=== PATIENT | female | born 1945 | race Two or more races ===

== ENCOUNTER 2021-08-18 17:40 | Emergency (ER) | payer MEDICARE, OTHER, MEDICAID, SELFPAY ==
--- NOTE | ~2021-08-18 | XR_ITS ---
EXAMINATION: X-RAY RIGHT HIP X-RAY LEFT HIP X-RAY RIGHT KNEE X-RAY LUMBAR SPINE CLINICAL INFORMATION: Fall, pain. COMPARISON: None TECHNIQUE: AP view of the pelvis with 2 views of each hip were obtained. 3 views of the lumbar spine were obtained. 2 views of the right knee were obtained. FINDINGS: Right hip: There are 3 obliquely oriented partially cannulated screws overlying the femoral neck. No evidence of hardware failure. No acute fractures or malalignment. Moderate to significant degenerative changes in the right hip. Left hip: No evidence of acute fractures or malalignment. Advanced degenerative osteoarthritis with joint space narrowing, subcortical sclerosis and osteophytes. Lumbar spine: No acute compression deformities. Mild grade 1 retrolisthesis of L1 on L2. Moderate to severe lumbar spondylosis with disc space narrowing and facet arthropathy leading to varying degree of neural foraminal encroachment and central canal narrowing. Right knee: No acute fractures or malalignment. Total knee prosthesis without evidence of hardware failure. No joint effusion. Others: Surgical clips in the upper abdomen. Also surgical anastomosis in the region of the left upper abdomen and left lower quadrant. Atherosclerotic disease of the abdominal aorta. Moderate stool burden. XR/XR knee RT 2V IMPRESSION: No evidence of acute fractures or malalignment. Right femoral hardware without evidence of complication. Total right knee arthroplasty without evidence of complication. Moderate to severe degenerative changes in both hips. Multilevel lumbar spondylosis leading to varying degrees of neural foraminal narrowing and central canal stenosis which could be better further assessed with a nonemergent MR lumbar spine if indicated.
--- NOTE | ~2021-08-18 | XR_ITS ---
EXAMINATION: X-RAY RIGHT HIP X-RAY LEFT HIP X-RAY RIGHT KNEE X-RAY LUMBAR SPINE CLINICAL INFORMATION: Fall, pain. COMPARISON: None TECHNIQUE: AP view of the pelvis with 2 views of each hip were obtained. 3 views of the lumbar spine were obtained. 2 views of the right knee were obtained. FINDINGS: Right hip: There are 3 obliquely oriented partially cannulated screws overlying the femoral neck. No evidence of hardware failure. No acute fractures or malalignment. Moderate to significant degenerative changes in the right hip. Left hip: No evidence of acute fractures or malalignment. Advanced degenerative osteoarthritis with joint space narrowing, subcortical sclerosis and osteophytes. Lumbar spine: No acute compression deformities. Mild grade 1 retrolisthesis of L1 on L2. Moderate to severe lumbar spondylosis with disc space narrowing and facet arthropathy leading to varying degree of neural foraminal encroachment and central canal narrowing. Right knee: No acute fractures or malalignment. Total knee prosthesis without evidence of hardware failure. No joint effusion. Others: Surgical clips in the upper abdomen. Also surgical anastomosis in the region of the left upper abdomen and left lower quadrant. Atherosclerotic disease of the abdominal aorta. Moderate stool burden. XR/XR lumbar spine 2-3V IMPRESSION: No evidence of acute fractures or malalignment. Right femoral hardware without evidence of complication. Total right knee arthroplasty without evidence of complication. Moderate to severe degenerative changes in both hips. Multilevel lumbar spondylosis leading to varying degrees of neural foraminal narrowing and central canal stenosis which could be better further assessed with a nonemergent MR lumbar spine if indicated.
--- NOTE | ~2021-08-18 | XR_ITS ---
EXAMINATION: X-RAY RIGHT HIP X-RAY LEFT HIP X-RAY RIGHT KNEE X-RAY LUMBAR SPINE CLINICAL INFORMATION: Fall, pain. COMPARISON: None TECHNIQUE: AP view of the pelvis with 2 views of each hip were obtained. 3 views of the lumbar spine were obtained. 2 views of the right knee were obtained. FINDINGS: Right hip: There are 3 obliquely oriented partially cannulated screws overlying the femoral neck. No evidence of hardware failure. No acute fractures or malalignment. Moderate to significant degenerative changes in the right hip. Left hip: No evidence of acute fractures or malalignment. Advanced degenerative osteoarthritis with joint space narrowing, subcortical sclerosis and osteophytes. Lumbar spine: No acute compression deformities. Mild grade 1 retrolisthesis of L1 on L2. Moderate to severe lumbar spondylosis with disc space narrowing and facet arthropathy leading to varying degree of neural foraminal encroachment and central canal narrowing. Right knee: No acute fractures or malalignment. Total knee prosthesis without evidence of hardware failure. No joint effusion. Others: Surgical clips in the upper abdomen. Also surgical anastomosis in the region of the left upper abdomen and left lower quadrant. Atherosclerotic disease of the abdominal aorta. Moderate stool burden. XR/XR hip RT min 2V IMPRESSION: No evidence of acute fractures or malalignment. Right femoral hardware without evidence of complication. Total right knee arthroplasty without evidence of complication. Moderate to severe degenerative changes in both hips. Multilevel lumbar spondylosis leading to varying degrees of neural foraminal narrowing and central canal stenosis which could be better further assessed with a nonemergent MR lumbar spine if indicated.
--- NOTE | ~2021-08-18 | XR_ITS ---
EXAMINATION: X-RAY RIGHT HIP X-RAY LEFT HIP X-RAY RIGHT KNEE X-RAY LUMBAR SPINE CLINICAL INFORMATION: Fall, pain. COMPARISON: None TECHNIQUE: AP view of the pelvis with 2 views of each hip were obtained. 3 views of the lumbar spine were obtained. 2 views of the right knee were obtained. FINDINGS: Right hip: There are 3 obliquely oriented partially cannulated screws overlying the femoral neck. No evidence of hardware failure. No acute fractures or malalignment. Moderate to significant degenerative changes in the right hip. Left hip: No evidence of acute fractures or malalignment. Advanced degenerative osteoarthritis with joint space narrowing, subcortical sclerosis and osteophytes. Lumbar spine: No acute compression deformities. Mild grade 1 retrolisthesis of L1 on L2. Moderate to severe lumbar spondylosis with disc space narrowing and facet arthropathy leading to varying degree of neural foraminal encroachment and central canal narrowing. Right knee: No acute fractures or malalignment. Total knee prosthesis without evidence of hardware failure. No joint effusion. Others: Surgical clips in the upper abdomen. Also surgical anastomosis in the region of the left upper abdomen and left lower quadrant. Atherosclerotic disease of the abdominal aorta. Moderate stool burden. XR/XR hip LT min 2V IMPRESSION: No evidence of acute fractures or malalignment. Right femoral hardware without evidence of complication. Total right knee arthroplasty without evidence of complication. Moderate to severe degenerative changes in both hips. Multilevel lumbar spondylosis leading to varying degrees of neural foraminal narrowing and central canal stenosis which could be better further assessed with a nonemergent MR lumbar spine if indicated.
[2021-08-18 17:43] VITALS: BP 159/61; PULSE 94; RESP 18; TEMP 36.8; O2SAT 98; BMI 25.4
--- NOTE | 2021-08-18 17:55 | ED.FALL ---
HPI - Fall General Chief Complaint: Fall Stated Complaint: fall - hip pain Time Seen by Provider: 08/18/21 18:19 Source: patient and family Mode of arrival: wheelchair Limitations: no limitations History of Present Illness HPI Narrative: 76-year-old female presents with right-sided hip pain and knee pain after fall on . States that she lost her balance, she did hit her head but did not lose consciousness. Patient is reporting hip and knee pain and lumbar spine pain. Does not report any symptoms indicating cauda equina, loss of strength, or any other concerning symptoms. MD complaint: fall Onset (ago): day(s) Fall from: standing Fall witnessed: yes, by family Place fall occurred: home Loss of consciousness: none Prolonged down time: no Symptoms prior to fall: none Context: tripped/slipped Location of injury: pelvis Severity: moderate Severity scale (1-10): 7 Quality: aching Associated symptoms (after fall): denies Related Data Allergies Allergy/AdvReac Type Severity Reaction Status Date / Time No Known Allergies Allergy Verified 08/18/21 17:44 Review of Systems Review of Systems: Constitutional: No Fever, No Chills ENT/Mouth: No Ear Pain, No Hoarseness, No sore throat Eyes: No Eye Pain, No Swelling, No Redness, No Foreign Body Cardiovascular: No Chest Pain, No SOB Respiratory: No Cough, No Dyspnea Gastrointestinal: No Nausea, No Vomiting, No Diarrhea, No abdominal Pain Genitourinary: No Dysuria, No Hematuria Musculoskeletal: positive right hip and knee pain, positive lumbar back pain, No Myalgias, No Joint Swelling Skin: No Skin lacerations, No rash Neuro: No Weakness, No Numbness, No Paresthesias, No Loss of Consciousness, No Dizziness, No Headache Psych: No Anxiety/Panic, No Depression Heme/Lymph: no easy bruising, no Lymphadenopathy Endocrine: No Polyuria, No Polydipsia Yes all other systems are reviewed and are negative PMFSH Past Medical History Attestation statement: The following information was validated with the patient. Source: old records reviewed Medical History Arthritis Depression Social History Social History Advance Directives: No Advance Directives Information Provided: No Physical Exam Vital Signs: Vital Signs: Last Vital Signs Temp 97.6 F 08/18/21 19:30 Pulse 81 08/18/21 19:30 Resp 18 08/18/21 19:30 BP 142/56 H 08/18/21 19:30 Pulse Ox 94 08/18/21 19:30 Body Mass Index 25.4 Appearance: Alert. Oriented X3. No acute distress. Eyes: Pupils equal, round and reactive to light. EOMI. No nystagmus. HENT: Pharynx normal. Small hematoma to the right occiput. Neck: Normal inspection. Neck supple. No vertebral tenderness or step-offs noted. Full range of motion. CVS: Normal heart rate and rhythm. Apical pulse equal to pulseless to extremities. Respiratory: No respiratory distress. Breath sounds normal. No chest wall tenderness to palpation. Abdomen: Soft and nontender. Skin: Skin warm and dry. Normal skin color. Normal skin turgor. Extremities: No lower extremity edema. Right-sided hip tenderness to palpation. Strength 5/5 to all extremities. Neuro: No motor deficit. No sensory deficit. Cranial nerves 2-12 intact. Course Course Course Narrative: 76-year-old female presents with right-sided hip pain and knee pain after fall on . Does not report any prodromal events. Neurovascularly intact. Does have a hematoma approximately 1 cm in diameter to the right occiput. No vertebral tenderness or step-offs noted. Has full range of motion and gait is well balanced well coordinated. Negative Romberg. PCARN score 0. Will order x-rays of hips, knee and lumbar spine. Mass Pat verified for the [facility] [place], [place], [place] and [place]. 7:48 p.m. discussion with patient and patient's family regarding x-rays, need for non emergent MRI spine discussed. Patient will follow-up with her physician in [place]. Patient and patient's family verbalized understanding of and agrees to plan of care discharge home. MDM - Fall Differential Diagnosis Differential diagnosis: Likely dislocation, fracture and compression fracture Medical Records Attestation: I reviewed the patient's medical records. Imaging Data Bilateral hip, right knee, and lumbar spine x-ray: Attestation: I personally reviewed and interpreted this imaging study as follows: Radiologist's impression: EXAMINATION: X-RAY RIGHT HIP X-RAY LEFT HIP X-RAY RIGHT KNEE X-RAY LUMBAR SPINE CLINICAL INFORMATION: Fall, pain.? COMPARISON: None? TECHNIQUE: AP view of the pelvis with 2 views of each hip were obtained. 3 views of the lumbar spine were obtained. 2 views of the right knee were obtained.? FINDINGS: Right hip: There are 3 obliquely oriented partially cannulated screws overlying the femoral neck. No evidence of hardware failure. No acute fractures or malalignment. Moderate to significant degenerative changes in the right hip. Left hip: No evidence of acute fractures or malalignment. Advanced degenerative osteoarthritis with joint space narrowing, subcortical sclerosis and osteophytes. Lumbar spine: No acute compression deformities. Mild grade 1 retrolisthesis of L1 on L2. Moderate to severe lumbar spondylosis with disc space narrowing and facet arthropathy leading to varying degree of neural foraminal encroachment and central canal narrowing. Right knee: No acute fractures or malalignment. Total knee prosthesis without evidence of hardware failure. No joint effusion. Others: Surgical clips in the upper abdomen. Also surgical anastomosis in the region of the left upper abdomen and left lower quadrant. Atherosclerotic disease of the abdominal aorta. Moderate stool burden. XR/XR hip RT min 2V IMPRESSION: No evidence of acute fractures or malalignment. ? Right femoral hardware without evidence of complication. ? Total right knee arthroplasty without evidence of complication. ? Moderate to severe degenerative changes in both hips. ? Multilevel lumbar spondylosis leading to varying degrees of neural foraminal narrowing and central canal stenosis which could be better further assessed with a nonemergent MR lumbar spine if indicated.? 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 X-rays of hip, and lumbar spine indicate disc degeneration. Please follow-up with Neurology for nonemergent MRI. Continue to take Tylenol as needed for pain management. Thank you for choosing this emergency department for evaluation. Please follow-up with primary care physician as needed. Return to the emergency department for any new, concerning, or worsening symptoms.
[2021-08-18 19:30] VITALS: BP 142/56; PULSE 81; RESP 18; TEMP 36.4; O2SAT 94
[2021-08-18] MEDS: Ketorolac Tromethamine 15 MG/ML VIAL 30 MG IM (20:02)
== END 2021-08-18 20:15 | disposition home or self-care (01) ==
PROVIDERS: Emergency Provider Internal Medicine
DX: M16.0 Bilateral primary osteoarthritis of hip (principal); M47.816 Spondylosis without myelopathy or radiculopathy, lumbar region; Z91.81 History of falling
CPT/HCPCS: 72100; 73502; 73560; 96372; 99284; J1885

== ENCOUNTER 2024-09-03 16:12 | Outpatient (AMB) | payer MEDICARE, MEDICAID, SELFPAY ==
[2024-09-03 16:13] VITALS: BP 138/80; PULSE 73; O2SAT 98; BMI 28.6
--- NOTE | 2024-09-03 16:13 | MHC.PC.OV ---
Vital Signs 09/03/24 16:13 Height 5 ft 1 in Weight 151 lb 4 oz BMI 28.6 BP 138/80 Blood Pressure Location Lt brachial Position Sitting Pulse 73 Pulse Source Pulse Oximeter Pulse Oximetry (%) 98 Oxygen Delivery Method Room Air Intake Visit Reasons: [employer]- PE request Nylon Operator Required: No Accompanied by: Self / Same As Patient Allergies No Known Allergies Allergy (Verified 09/03/24 19:05) Medication List - Last Reconciled 09/03/24 by Jacob Vale MD albuterol sulfate 90 mcg/actuation 2 puffs inhalation Q4-6H PRN atorvastatin 80 mg PO DAILY bupropion HCl XL 150 mg PO QAM buspirone 20 mg PO BID cariprazine (Vraylar) 3 mg PO DAILY doxepin 10 mg PO BEDTIME famotidine 20 mg PO BID PRN fluticasone propionate 50 mcg/actuation 1 spray intranasal DAILY gabapentin 300 mg PO TID 30 days ibandronate 150 mg PO .monthly lamotrigine 200 mg PO DAILY lamotrigine 50 mg (2 x 25 mg) PO DAILY memantine 5 mg PO BID nifedipine ER 60 mg PO DAILY pantoprazole 40 mg PO DAILY venlafaxine ER 225 mg PO QAM Tobacco use date assessed: 09/03/24 Fall risk assessment: 2 + Falls in past year Last assessed Fall Risk: 09/03/24 Dental Screening Dental Screen Date: 09/03/24 Did you have a dental visit in the last 12 months?: No Did you have a dental problem in the last 6 months where you did not have access to dental care?: No Was dental information given to patient?: No HPI [employer]- PE request HPI Details Patient comes in today for her annual physical examination and to establish care - is a new patient to the practice She is in today with her daughter and her son, who she is living with, is also participating in today's visit over the phone Patient recently moved here from [place] [address], [place], where she was living (on her own) for about 30 years Her daughter states that they have been trying to convince her to move here for a few years now as her children are all here in [facility] and patient has been slowly getting weaker over the years and has been supposedly falling a lot lately They have brought in with them today all of her medications, which we have reviewed and updated in her medication list They also brought in a copy of a head and neck CTA done on the patient back in 2021 supposedly for memory loss and multiple falls but states that they otherwise have no other records to provide so most of her history is provided by the patient herself but are limited to what she can actually recall Patient states that she feels okay but per her daughter and son, she has supposedly passed out a few times over the past few months without any identifiable reason As mentioned, she has been also falling a lot lately and per her daughter, has been getting progressively more forgetful Patient denies any headaches or dizziness although patient has been experiencing increased pain over the right side of her neck at the base of her skull for several weeks now She reports (+) history of arthritis in her neck She denies any chest pains or increased shortness of breath No nausea/vomiting, no abdominal pain No change in bowel habits noted She denies any acute urinary symptoms Patient adds that she has been experiencing increased pain in her left hip and left knee lately Also reports (+) history of chronic low back pain in the past and states that her lower back has been bothering her a lot more than usual lately She also relates (+) history of anxiety and depression and is currently on multiple medications for depression and her daughter would like for her to get a referral to Psychiatry for her mood disorder and also to Neurology to evaluate her declining memory and cognition At patient's current age, she no longer needs to keep up with routine cancer screenings, including her colonoscopy, annual mammography and annual gynecology exam and Pap smear unless she wishes to do so [facility] Medical History (Updated 09/04/24 @ 06:08 by Jacob Vale MD) Overweight (BMI 25.0-29.9) Bipolar 1 disorder GERD without esophagitis Allergic rhinitis Dementia Anxiety Osteoporosis Pure hypercholesterolemia Essential hypertension Depression Arthritis Surgical History (Updated 09/03/24 @ 16:52 by Jacob Vale MD) History of cataract extraction History of Mabel-en-Y gastric bypass History of arthroplasty of right shoulder History of total hip arthroplasty History of total knee arthroplasty Hx of arthroscopic knee surgery Family History Other FH: mental illness Substance abuse Social History Housing: Apartment Patient Tobacco Use Status: Former Tobacco user e-Cigarette/Vaping Use: Never Used service: No Current occupational status: unemployed Current occupational exposures/hazards: No Cognitive needs: No Hearing needs: No Vision needs: No Questionnaire PHQ-9 Over the last 2 weeks, how often have you been bothered by any of the following problems? 1. Little interest or pleasure in doing things: more than half the days 2. Feeling down, depressed, or hopeless: several days 3. Trouble falling or staying asleep, or sleeping too much: more than half the days 4. Feeling tired or having little energy: nearly every day 5. Poor appetite or overeating: more than half the days 6. Feeling bad about yourself - or that you are a failure or have let yourself or your family down: not at all 7. Trouble concentrating on things, such as reading the newspaper or watching television: nearly every day 8. Moving or speaking so slowly that other people could have noticed. Or the opposite - being so fidgety or restless that you have been moving around a lot more than usual: not at all 9. Thoughts that you would be better off or of hurting yourself in some way: not at all Total score: 13 Depression Screening Interpretation: Positive Depression Screening Follow-up: Existing condition and In treatment Depression Screening Done: Yes 39601 - PHQ-9 Billing: Yes Source: Developed by Drs. Donovan Fierro, Deepa Bustamante, Nathaniel Lyons and colleagues, with an educational marquez from [employer]. Thrive Questionnaire Date Thrive assessed: 09/03/24 I am a: Patient What is your living situation today?: I have a place to live, but I am worried about losing it in the future Within the past 12 months, did the food you bought not last and you didn't have the money to get more?: Never true Within the past 12 months, did you worry whether your food would run out before you got money to buy more?: Never true Do you have trouble paying for medicines?: No Do you have trouble getting transportation to medical appointments?: Yes Do you have trouble paying your heating and electricity bill?: No Do you have trouble taking care of your child, family member or friend?: I choose not to answer this question Do you have trouble with day-to-day activities such as bathing, preparing meals, shopping, managing finances, etc.?: Yes Are you currently unemployed and looking for a job?: No Are you interested in more education?: No Please select the resources that you would like help with: Care for elder or disabled and Daily support Currently or been in a relationship where the following occur: No concerns reported THRIVE Score: 2 AUDIT C Alcohol Use Questionnaire (AUDIT-C) 1. How often do you have a drink containing alcohol?: Never 3. How often do you have six or more drinks on one occasion?: Never Total Score: 0 Score Reviewed/Action Taken: Yes WYATT-7 AMB Questionnaire WYATT-7 Date WYATT - 7 assessed: 09/03/24 Feeling nervous, anxious, or on edge: 2 = More than half the days Not being able to stop or control worryin = Nearly every day Worrying too much about different things: 3 = Nearly every day Trouble relaxin = Several days Being so restless that it is hard to sit still: 0 = Not at all Becoming easily annoyed or irritable: 0 = Not at all Feeling afraid as if something awful might happen: 0 = Not at all Total WYATT-7 score (0-4 normal; 5-9 mild; 10-14 moderate; 15-21 severe): 9 Source: Developed by Drs. Donovan Fierro, Deepa Bustamante, Nathaniel Lyons and colleagues, with an educational marquez from [employer]. Review of Systems Const Denies chills, Denies fatigue, Denies fever(s), Reports frequent falls, Denies headache(s) and Denies malaise Eyes Denies blurry vision, Denies change in vision, Denies irritation and Denies itchy eyes ENT Denies dysphagia, Denies dizziness, Denies otalgia, Denies headache(s), Denies nasal congestion, Reports neck pain (on the R side at the base of the skull), Denies odynophagia, Denies sinus pain and Denies sore throat Card Denies chest pain, Reports chest pain at rest (on and off over the past few weeks - see HPI), Reports syncope, Denies rapid heart rate, Denies irregular heart rhythm, Denies palpitations and Denies dyspnea Resp Denies chest congestion, Denies cough, Denies dyspnea and Denies wheezing GI Denies abdominal pain, Denies bloating, Denies constipation, Denies dysphagia, Denies heartburn, Denies diarrhea, Denies nausea, Denies odynophagia and Denies vomiting Denies hematuria, Denies urinary frequency, Denies dysuria, Denies urinary incontinence and Denies urinary urgency Musc Reports back pain (over the lower back), Reports arthralgias (over the left hip and left knee - increasing lately), Denies joint swelling, Denies muscle weakness and Reports neck pain (on the R side at the base of the skull) Skin/Breast Denies breast pain, Denies breast mass, Denies change in pigmentation, Denies lesions, Denies rash and Denies unusual bruising Neuro Denies dizziness, Reports syncope, Reports frequent falls, Denies headache(s), Reports memory loss (slowly progressing over the past few years) and Denies paresthesias Psych Reports anxiety, Reports depression and Reports memory loss (slowly progressing over the past few years) Endo Denies fatigue and Denies palpitations Teja/Lymph Denies easy bruising Aller/Immun Denies itchy eyes and Denies wheezing Physical exam (Primary Care) Vital Signs: Last Vital Signs Pulse 73 09/03/24 16:13 BP 138/80 09/03/24 16:13 Pulse Ox 98 09/03/24 16:13 Oxygen Delivery Method Room Air 09/03/24 16:13 BMI result Body Mass Index 28.6 Tobacco/Smoking Status: Tobacco use Status Tobacco use date assessed 09/03/24 09/03/24 16:17 Patient Tobacco Use Status Former Tobacco user 09/03/24 16:22 e-Cigarette/Vaping Use Never Used 09/03/24 16:17 PHQ-9: PHQ-9 Score PHQ-9: Total score 13 09/03/24 23:28 Depression Screening Interpretation: Positive Depression Screening Follow-up: Existing condition and In treatment Thrive Assessment: Date of Thrive Assessment Date Thrive assessed 09/03/24 09/03/24 16:17 Currently or been in a relationship where the following occur: No concerns reported Const General: no acute distress, alert and awake Orientation/consciousness: patient oriented x3 HENMT Head: Yes normocephalic and Yes atraumatic Ears: external ears normal, TM's normal bilaterally and EAC's normal General nose exam: No nasal discharge present Face and sinus: Yes normal facial exam and Yes sinuses nontender Teeth and gingiva: dentition normal Throat: Yes posterior oropharynx normal and Yes tonsils normal (no TP congestion) Eyes Eyelids: Yes eyelids normal Conjunctivae: conjunctivae normal Pupils: Equal, round and reactive pupils present EOM: EOMs intact bilaterally Neck Neck: Yes supple and No lymphadenopathy Thyroid: Thyroid normal Resp Auscultation: clear to auscultation bilaterally, no rales and no wheezes Cardio Rate: regular rate Rhythm: regular rhythm Heart sounds: no murmurs GI Palpation (GI): Soft to palpation, nontender and No hepatosplenomegaly present Auscultation: normal bowel sounds General: Yes no CVA tenderness Back/Spine/Pelvis Back: no CVA tenderness Cervical Spine: Cervical spine tenderness Thoracic/Lumbar Spine: lumbar spinal tenderness Skin Lesions: no lesions Rashes: no rashes Neuro General: patient oriented x3, moves all extremities, no focal motor deficits and CN's II-XI intact bilaterally Cranial nerves: Yes Equal, round and reactive pupils present Cognition (Neuro): normal cognition Gait exam (Neuro): Normal gait present Extrem General: Yes no clubbing, cyanosis or edema Left lower extremity: hip/thigh Details: tenderness Location: of the hip and knee Details: tenderness Location: of the popliteal fossa; no swelling Coding Level of Care Code New Pt Prev Care >65yr (65324) Diagnoses Annual physical exam Z00.00 Essential hypertension I10 Pure hypercholesterolemia E78.00 Recurrent syncope R55 Dementia without behavioral disturbance, psychotic disturbance, mood disturbance, or anxiety, unspecified dementia severity, unspecified dementia type F03.90 Dementia type: unspecified type Dementia severity: unspecified severity Dementia behavioral or psychological symptom: without behavioral, psychotic, or mood disturbance or anxiety Osteoporosis without current pathological fracture, unspecified osteoporosis type M81.0 Osteoporosis type: unspecified Presence of current pathological fracture: without current pathological fracture GERD without esophagitis K21.9 Allergic rhinitis, unspecified seasonality, unspecified trigger J30.9 Allergic rhinitis trigger: unspecified Allergic rhinitis seasonality: unspecified Neck pain M54.2 Midline low back pain without sciatica, unspecified chronicity M54.50 Chronicity: unspecified Back pain laterality: midline Sciatica presence: without sciatica Left hip pain M25.552 Left knee pain, unspecified chronicity M25.562 Chronicity: unspecified Anxiety F41.9 Bipolar 1 disorder F31.9 Overweight (BMI 25.0-29.9) E66.3 Additional Codes PHQ-9 - 21373 - PHQ-9 Billing: Yes ([id number]) Assessment & Plan Assessment & Plan (1) Annual physical exam: Code(s): Z00.00 - Encounter for general adult medical examination without abnormal findings Category: Medical Plan: Check labs At her current age, unless she wishes to do so, patient no longer has to keep up with her cancer screenings, including colonoscopy, mammography and annual pap smear and gynecology exam - patient declined to continue (2) Essential hypertension: Code(s): I10 - Essential (primary) hypertension Category: Medical Plan: Discussed low sodium diet - goal is systolic BP of at least 130 to 140 mm or less Continue Nifedipine ER 60 mg QD (3) Pure hypercholesterolemia: Code(s): E78.00 - Pure hypercholesterolemia, unspecified Category: Medical Plan: Discussed low cholesterol diet Continue Atorvastatin 80 mg QD Will have patient get her fasting lipids checked EN (4) Recurrent syncope: Code(s): R55 - Syncope and collapse Category: Medical Plan: Unknown etiology Patient's children states that she's had recurrent syncopal episodes over the past few weeks now, with her most recent episode occurring just a couple of weeks ago Will send patient for some labs for further evaluation first and if her labs are unrevealing, will consider sending her for a head CT for further evaluation Will send her as well for an echocardiogram for further evaluation Will also refer her to cardiology for further evaluation - may need Holter monitoring or cardiac event monitor as well (5) Dementia: Code(s): F03.90 - Unspecified dementia, unspecified severity, without behavioral disturbance, psychotic disturbance, mood disturbance, and anxiety Category: Medical Qualifiers: Dementia type: unspecified type Dementia severity: unspecified severity Dementia behavioral or psychological symptom: without behavioral, psychotic, or mood disturbance or anxiety Qualified Code(s): F03.90 - Unspecified dementia, unspecified severity, without behavioral disturbance, psychotic disturbance, mood disturbance, and anxiety Plan: Continue Memantine 5 mg BID Per request, will refer patient to neurology for further evaluation and management (6) Osteoporosis: Code(s): M81.0 - Age-related osteoporosis without current pathological fracture Category: Medical Qualifiers: Osteoporosis type: unspecified Presence of current pathological fracture: without current pathological fracture Qualified Code(s): M81.0 - Age-related osteoporosis without current pathological fracture Plan: Patient states that she last had a bone density scan done in [place] sometime in the past 1 to 2 years although she does not know how her scan came out She has been on Ibandronate 150 mg once a month supposedly for over a year now but she is not exactly sure as to when she started on this Will send her for repeat BMD for follow up (7) GERD without esophagitis: Code(s): K21.9 - Gastro-esophageal reflux disease without esophagitis Category: Medical Plan: Dietary restrictions discussed Continue Pantoprazole 40 mg QD and Famotidine 20 mg BID PRN (8) Allergic rhinitis: Code(s): J30.9 - Allergic rhinitis, unspecified Category: Medical Qualifiers: Allergic rhinitis trigger: unspecified Allergic rhinitis seasonality: unspecified Qualified Code(s): J30.9 - Allergic rhinitis, unspecified Plan: Continue Fluticasone 50 mcg nasal spray QD PRN (9) Neck pain: Code(s): M54.2 - Cervicalgia Category: Medical Plan: Have advised patient that her recent right-sided neck pain may be referred pain from her cervical spine Will send her for cervical spine x-rays for further evaluation (10) Low back pain: Code(s): M54.50 - Low back pain, unspecified Category: Medical Qualifiers: Chronicity: unspecified Back pain laterality: midline Sciatica presence: without sciatica Qualified Code(s): M54.50 - Low back pain, unspecified Plan: Discussed activity and weight-lifting restrictions Will send patient for x-rays of the lumbar spine for further evaluation Continue Gabapentin 300 mg TID (11) Left hip pain: Code(s): M25.552 - Pain in left hip Category: Medical Plan: Patient states that she's had total arthroplasty of both hips done in [place] a few years ago and is concerned that her recent hip pain may be related to her arthroplasty Will send her for x-rays of the left hip for further evaluation She is advised that depending on how her x-rays come out, we may need to consider referring her to orhtopedics here locally for further recommendations (12) Left knee pain: Code(s): M25.562 - Pain in left knee Category: Medical Qualifiers: Chronicity: unspecified Qualified Code(s): M25.562 - Pain in left knee Plan: Patient also reports that she's had total arthroplasty of both knees done in [place] a few years ago and she is concerned about her recent knee pain Will send her for left knee x-rays for further evaluation (13) Anxiety: Code(s): F41.9 - Anxiety disorder, unspecified Category: Medical Plan: Continue Doxepin 10 mg Q HS, Buspirone 20 mg BID and Bupropion XL 150 mg Q AM (14) Bipolar 1 disorder: Code(s): F31.9 - Bipolar disorder, unspecified Category: Medical Plan: Continue Vanlafaxine ER 225 mg Q AM, Lamotrigine 250 mg (200 mg + 25 mg x 2) QD, Vraylar 3 mg QD and Bupropion XL 150 mg Q AM Per request, will refer her to psychiatry (15) Overweight (BMI 25.0-29.9): Code(s): E66.3 - Overweight Category: Medical Plan: Per patient, she's had a Mabel-en-Y gastric bypass surgery years ago and has lost about 120 pounds or more since her surgery Continue Pantoprazole 40 mg QD and she is reminded to completely avoid taking any NSAIDs to prevent the development of ulcers, especially marginal ulcers Plan Follow up in 3 months Orders: Orders XR DEXA axial skeleton 09/03/24 M81.0 - Age-related osteoporosis without current pathological fracture, Z78.0 - Asymptomatic menopausal state XR lumbar spine 2-3V 09/03/24 M54.50 - Low back pain, unspecified XR hip LT min 2V 09/03/24 M25.552 - Pain in left hip XR knee LT 4V 09/03/24 M25.562 - Pain in left knee Complete Blood Count Auto Diff 09/03/24 D64.9 - Anemia, unspecified, Z00.00 - Encounter for general adult medical examination without abnormal findings UA CC w/rflx Micro + Cult 09/03/24 R30.0 - Dysuria, Z00.00 - Encounter for general adult medical examination without abnormal findings C Reactive Protein 09/03/24 Z00.00 - Encounter for general adult medical examination without abnormal findings B Type Natriuretic Peptide 09/03/24 I50.9 - Heart failure, unspecified, Z00.00 - Encounter for general adult medical examination without abnormal findings Erythrocyte Sedimentation Rate 09/03/24 M79.7 - Fibromyalgia, Z00.00 - Encounter for general adult medical examination without abnormal findings XR cervical spine 3V 09/03/24 M54.2 - Cervicalgia CA echo transthoracic complete 09/03/24 R06.09 - Other forms of dyspnea, R55 - Syncope and collapse Comprehensive [place]. Panel Fast 09/03/24 E78.00 - Pure hypercholesterolemia, unspecified, Z00.00 - Encounter for general adult medical examination without abnormal findings Lipid Panel 09/03/24 E78.00 - Pure hypercholesterolemia, unspecified, Z00.00 - Encounter for general adult medical examination without abnormal findings TSH reflex Free T4 09/03/24 E78.00 - Pure hypercholesterolemia, unspecified, Z00.00 - Encounter for general adult medical examination without abnormal findings Vitamin D 25-OH Total 09/03/24 E55.9 - Vitamin D deficiency, unspecified, Z00.00 - Encounter for general adult medical examination without abnormal findings Vitamin B12 and Folate 09/03/24 E53.8 - Deficiency of other specified B group vitamins, Z00.00 - Encounter for general adult medical examination without abnormal findings Magnesium 09/03/24 E83.42 - Hypomagnesemia Referrals Psychiatry Referral F32.A - Depression, unspecified, F41.9 - Anxiety disorder, unspecified Cardiology Referral R55 - Syncope and collapse Neurology Referral F03.90 - Unspecified dementia, unspecified severity, without behavioral disturbance, psychotic disturbance, mood disturbance, and anxiety Medications: New memantine 5 mg PO BID 60 tabs 0RF pantoprazole 40 mg PO DAILY 30 tabs 0RF lamotrigine Taken together with Lamotrigine 200 mg for a total of 250 mg daily dose 50 mg (2 x 25 mg) PO DAILY 60 tabs 0RF doxepin 10 mg PO BEDTIME 30 caps 0RF venlafaxine ER 225 mg PO QAM 30 tabs 0RF gabapentin 300 mg PO TID 30 days 90 caps 1RF
== END 2024-09-03 17:06 | disposition home or self-care (01) ==
PROVIDERS: PCP Internal Medicine; Visit Provider Internal Medicine
DX: Z00.00 Encounter for general adult medical examination without abnormal findings (principal); F03.90 Unspecified dementia, unspecified severity, without behavioral disturbance, psychotic disturbance, mood disturbance, and anxiety; F31.9 Bipolar disorder, unspecified; I10 Essential (primary) hypertension; E78.00 Pure hypercholesterolemia, unspecified; R55 Syncope and collapse; M81.0 Age-related osteoporosis without current pathological fracture; K21.9 Gastro-esophageal reflux disease without esophagitis; M54.2 Cervicalgia; J30.9 Allergic rhinitis, unspecified; M54.50 Low back pain, unspecified; M25.552 Pain in left hip; M25.562 Pain in left knee

== ENCOUNTER → 2024-09-03 16:12 | Outpatient (BNVA) | payer MEDICARE, MEDICAID, SELFPAY | PROVIDERS: PCP Internal Medicine; Visit Provider Internal Medicine | DX: Z00.00 Encounter for general adult medical examination without abnormal findings (principal); I10 Essential (primary) hypertension; E78.00 Pure hypercholesterolemia, unspecified; R55 Syncope and collapse; F03.90 Unspecified dementia, unspecified severity, without behavioral disturbance, psychotic disturbance, mood disturbance, and anxiety; M81.0 Age-related osteoporosis without current pathological fracture; K21.9 Gastro-esophageal reflux disease without esophagitis; J30.9 Allergic rhinitis, unspecified; M54.2 Cervicalgia; M54.50 Low back pain, unspecified | CPT/HCPCS: 96127; 99387 ==

== ENCOUNTER 2024-09-04 07:23 | Outpatient (REF) | payer MEDICARE, MEDICAID, SELFPAY ==
[2024-09-04 07:44] LABS: MANUAL DIFF FLAG NO
[2024-09-04 08:28] LABS: Basophils Percent Auto 0.4 % (0-2); Eosinophils Absolute Auto 0.1 X10*3/uL (0.0-0.4); Eosinophils Percent Auto 2.5 % (0-4); Hematocrit 37.4 % (37.0-47.0); Hemoglobin 12.6 g/dl (12.0-16.0); Lymphocytes Absolute Auto 1.8 X10*3/uL (1.2-4.9); Lymphocytes Percent Auto 41.3 % (20-40); Mean Corpuscular HGB Conc 33.7 g/dl (31.0-35.0); Mean Corpuscular Hemoglobin 33.2 pg (27.0-33.0); Mean Corpuscular Volume 98.7 fL (80.0-98.0); Mean Platelet Volume 9.5 fL (9.4-12.3); Monocytes Absolute Auto 0.3 X10*3/uL (0.1-1.2); Monocytes Percent Auto 6.7 % (2-11); Neutrophils Absolute Auto 2.2 x10*3/uL (2.0-8.3); Neutrophils Percent Auto 49.1 % (45-73); Platelet Count 188 X10*3/uL (160-400); Red Blood Count 3.79 X10*6/uL (4.20-5.50); Red Cell Distribution Width 13.3 % (11.0-16.0); White Blood Count 4.5 X10*3/uL (4.8-10.8)
[2024-09-04 08:31] LABS: Appearance Urine Clear; Color Urine Yellow; Glucose Urine UA Negative (Negative); Leukocyte Esterase Urine Small (1+) (Negative); Nitrite Urine Negative (Negative); Specific Gravity - Urine 1.025 (1.005-1.025); UMIC TRIGGER UACC YES; Urine Blood Negative (Negative); Urine Ketones Negative (Negative); Urine Protein Trace mg/dL (Neg-Trace)
[2024-09-04 08:43] LABS: Bacteria Urine None Seen (None Seen); Hyaline Casts Urine 0-2 /LPF (0-2); RBC Urine 0-2 /HPF (0-2); Squamous Epithelial Cell Urine 0-2 /HPF (0-2); UACC Culture Trigger YES; WBC Urine 0-5 /HPF (0-5)
[2024-09-04 09:02] LABS: B Type Natriuretic Peptide 49 pg/mL (<100)
[2024-09-04 09:06] LABS: Erythrocyte Sedimentation Rate 12 MM/HR (0-20)
[2024-09-04 09:07] LABS: Alanine Aminotransferase 34 U/L (0-31); Alkaline Phosphatase 77 U/L (39-117); Anion Gap 11 (12-20); Aspartate Amino Transferase 51 U/L (5-31); Bilirubin Total 0.5 mg/dL (0.0-1.0); Blood Urea Nitrogen 15 mg/dL (9-16); C Reactive Protein 0.13 mg/dL (< or = 0.50); Calcium 8.7 mg/dL (8.4-10.2); Carbon Dioxide 28 mmol/L (22-29); Chloride 105 mmol/L (96-108); Cholesterol 148 mg/dL (<200); Estimated Glomerular Filt Rate > 60; Glucose Fasting 93 mg/dL (60-99); HDL Cholesterol 53 mg/dL (>40); LDL Cholesterol Calculated 81 mg/dL (<100); Magnesium 2.1 mg/dL (1.6-2.6); Potassium 4.3 mmol/L (3.3-5.1); Sodium 140 mmol/L (135-145); Total Protein 7.4 g/dL (6.5-8.0); Triglycerides 72 mg/dL (<150)
[2024-09-04 09:28] LABS: Vitamin D 25-OH Total 38.8 ng/mL (>30)
[2024-09-04 09:39] LABS: Folate 10.2 ng/mL (> or = 4.0); Vitamin B12 > 2000 pg/mL (200-900)
== END 2024-09-04 07:24 | disposition home or self-care (01) ==
LOC: HO.XRAY 07:23
PROVIDERS: PCP Internal Medicine; Visit Provider Internal Medicine
DX: Z00.00 Encounter for general adult medical examination without abnormal findings (principal); I50.9 Heart failure, unspecified; E78.00 Pure hypercholesterolemia, unspecified; E55.9 Vitamin D deficiency, unspecified; E83.42 Hypomagnesemia; D64.9 Anemia, unspecified; M79.7 Fibromyalgia; E53.8 Deficiency of other specified B group vitamins; M54.50 Low back pain, unspecified; M25.562 Pain in left knee; M54.2 Cervicalgia; R30.0 Dysuria
CPT/HCPCS: 36415; 72040; 72100; 73502; 73564; 80053; 80061; 81001; 82306; 82607; 82746; 83735; 83880; 84443; 85025; 85652; 86140; 87086

== ENCOUNTER → 2024-10-05 14:57 | Outpatient (REF) | payer MEDICARE, MEDICAID, SELFPAY ==
--- NOTE | 2024-10-05 15:02 | CA_ITS ---
Transthoracic Echocardiogram Patient (Last, First, Middle): Brittany Lundberg D Gender: Female Date of : 1945 Age: 79 Procedure Date: 10/05/2024 Procedure Type: Transthoracic Echocardiogram Location: OP Height: 154.94 cm Weight: 65.77 kg BSA: 1.65 m2 Heart Rate: 71 bpm BP: 158 / 70 mmHg Appraiser Art: GEOFF Referring MD: Jacob Vale MD Symptoms: R06.09 - Other forms of dyspnea Study Quality: Adequate ECG Rhythm: Sinus Conclusions: - The left ventricular systolic function is normal. The calculated ejection fraction is 59% by biplane method. - No obvious valvular pathology seen on this study. - Moderate plaque is seen in the sino tubular ridge. Findings Left Ventricle Normal left ventricular cavity size. There is normal left ventricular wall thickness. The left ventricular systolic function is normal. The calculated ejection fraction is 59% by biplane method. There is no evidence of regional wall motion abnormalities. Diastolic function is normal for age. Right Ventricle Normal right ventricular cavity size and systolic function. Atria Both atria are normal in size. Aortic Valve There is a normal trileaflet aortic valve. There is no aortic valve stenosis. There is no aortic valve regurgitation. Mitral Valve The mitral valve appears normal. There is mild mitral annular calcification. There is trace mitral valve regurgitation. There is no mitral valve stenosis. Calcified mitral chords. Pulmonic Valve The pulmonic valve is likely normal. Tricuspid Valve There is trace tricuspid valve regurgitation. There is no evidence of pulmonary hypertension. Great Vessels The asc aorta is normal in size. Moderate plaque is seen in the sino tubular ridge. Venous The inferior vena cava is normal in size and collapses greater than 50% with inspiration. Pericardium/Pleural There is no evidence of pericardial effusion. Prior Study Comparison No prior study available for comparison. Recommendations, Care & Conclusions No obvious valvular pathology seen on this study. Measurements 2D Linear Measurements IVSd: 0.79 0.6-0.9/0.6-1.0 cm LVIDd: 4.81 3.9-5.3/4.2-5.9 cm LVIDd Index: 2.92 2.4-3.2/2.2-3.1 cm/m2 LVIDs: 3.50 2.0-3.6 cm LVPWd: 0.85 0.7-1.1 cm LA Diam: 3.40 2.7-3.8/3.0-4.0 cm LAIDs Index: 2.06 1.5-2.3 cm/m2 LV Mass: 162.81 67-162/88-224 g LV Mass Index: 98.68 43-95/49-115 g/m2 LVOT Diam: 1.90 3.0+(-)1.3 cm 2D Systolic Function EF 4C: 57.70 >55% EF 2C: 61.00 >55% EF BiP: 59.00 >55% Mitral Valve MV Pk E: 1.07 MV PK A: 0.97 MV Decel Time: 223.00 E/A: 1.10 E'Lateral: 9.36 E'Medial: 5.55 E/E' Med: 19.30 E/E' Lat: 11.40 PHT: 65.00 MVA PHT: 3.38 Decel [place]: 4.77 Aortic Valve AoV Pk Johnson: 1.45 AoV Mn Johnson: 1.05 AoV VTI: 0.33 AoV Pk Grad: 8.00 Aov Mn Grad: 5.00 CAROL Cont.VTI: 2.02 LVOT LVOT Pk Johnson: 1.04 LVOT Mn Johnson: 0.76 LVOT VTI: 0.24 LVOT Pk Grad: 4.00 LVOT Mn Grad: 3.00 LVOT Diam: 1.90 LVOT Area: 2.84 Diastolic Function MV Pk E: 1.07 MV Pk A: 0.97 E/A: 1.10 E'Medial: 5.55 E/E' Med: 19.30 E' Laterial: 9.36 E/E' Lat: 11.40 Right Ventricle TAPSE (mm): 22.70 TVS' Johnson: 12.00 Tricuspid Valve TR Pk Johnson: 1.92 TR Pk Grad: 15.00 RA Press: 3.00 RVSP: 18.00 Great Vessels Aorta Sinus of Valsalva: 2.90 2.0-3.5 cm Ao Asc: 2.80 2.1-3.4 cm Pulmonary Valve PV Pk Johnson: 0.92 Peak PV Grad: 3.00 Updated in Other Vendor System with Status of Final Harris Bennett MD electronically signed on 10/05/2024 4:38:36 PM with status of Final
== END ==
LOC: HO.CARD 14:57
PROVIDERS: PCP Internal Medicine; Visit Provider Internal Medicine
DX: R06.09 Other forms of dyspnea (principal); R55 Syncope and collapse
CPT/HCPCS: 93306

== ENCOUNTER → 2024-10-05 15:02 | Outpatient (BNV) | payer MEDICARE, MEDICAID, SELFPAY | PROVIDERS: PCP Internal Medicine; Visit Provider Internal Medicine | DX: I34.89 Other nonrheumatic mitral valve disorders (principal); I34.81 Nonrheumatic mitral (valve) annulus calcification | CPT/HCPCS: 93306 ==

== ENCOUNTER 2024-10-17 15:52 | Inpatient (IN) | payer OTHER, SELFPAY ==
--- NOTE | ~2024-10-17 | CT_ITS ---
CLINICAL HISTORY: Left facial numbness, expressive aphasia CT head without contrast Comparison: None Findings: Involutional change and nonspecific white matter hypodensity. No intracranial mass, midline shift, hydrocephalus, or acute hemorrhage. Orbits, paranasal sinuses, and mastoid air cells are unremarkable. No skull fracture Impression: 1. No acute findings This document has been electronically signed by: Harleen Cook MD on 10/17/2024 16:13:18
--- NOTE | ~2024-10-17 | CT_ITS ---
EXAMINATION: CT CERVICAL SPINE WITHOUT CONTRAST CLINICAL INFORMATION: Neck pain. COMPARISON: None available. TECHNIQUE: Contiguous axial images through the cervical spine using 3 mm collimation with bone and soft tissue algorithm. Sagittal and coronal reformatted images acquired. This CT examination was performed using dose optimization techniques as appropriate, variously including the following: *Automated exposure control *Adjustment of mA and/or kV according to patient size (this includes techniques or standardized protocols for targeted exams where dose is matched to indication/reason for exam; i.e. extremities or head) *Use of iterative reconstruction technique. DLP: 380 mGy centimeters. FINDINGS: Limited by patient's motion artifact. Craniocervical junction is intact. Degenerative changes in the periodontal C1 region with a partial calcified pannus formation, periodontal. Multilevel marginal osteophyte formation and endplate sclerosis subchondral cyst formation and decreased intervertebral disc height C4-5 to C6-7. Grade 1 anterolisthesis C3-4. Bilateral facet joint hypertrophy, C2-3 to C6-7. Reverse curvature apex C4-5. C1 is intact. C2 is intact. C3 is intact. C4 is intact. C5 is intact. C6 is intact. C7 is intact. There is a focal 5 mm gas-filled attenuation at the 7 o'clock position of the upper trachea just to the right of the proximal intrathoracic esophagus Calcified plaques in the carotic arteries more conspicuous on the left side. Calcified plaques in the thoracic aortic arch and the origin of its main branches. Tympanic cavities and mastoid cells are aerated. Degenerative changes in the temporal mandibular joints. CT/CT cervical spine wo IV con IMPRESSION: Multilevel cervical spondylosis resulting in grade 1 anterolisthesis C3-4 without gross acute fracture.. Questionable small 5 mm diverticulum, 7 o'clock position upper trachea. Fleischner guidelines were followed. Electronically signed by: Nba Waite MD 10/18/2024 03:35 PM EST
--- NOTE | ~2024-10-17 | CT_ITS ---
CLINICAL HISTORY: Left facial numbness, expressive aphasia CT angiography head and neck with contrast. 3D Postprocessing. Comparison: CT/SR - CT HEAD FOR STROKE - 10/17/24 15:59 EST Findings: Aortic arch and cervical great vessels are patent. No stenosis or dissection. Mild calcific plaque formation. Intracranial arteries are patent. No dissection, or occlusion. Persistent origin of the right posterior cerebral artery incidentally noted. 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 No abnormal intracranial enhancement. The visualized thyroid gland is unremarkable. No cervical mass or fluid collection. Lung apices clear. No acute fracture. IMPRESSION: 1. Patent head and neck CTA. 2. 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 This document has been electronically signed by: Harleen Cook MD on 10/17/2024 17:39:54
--- NOTE | ~2024-10-17 | XR_ITS ---
CLINICAL HISTORY: Altered mental status, rule out pneumonia 1 view chest x-ray Comparison: None Findings: The lungs are clear. Normal size heart. Status post right shoulder replacement. No acute fracture. IMPRESSION: 1. No acute findings. This document has been electronically signed by: Harleen Cook MD on 10/17/2024 18:12:25
--- NOTE | ~2024-10-17 | MR_ITS ---
CLINICAL HISTORY: double vision expressive aphasia Involuntary mouth movement. Scanned BLADE as poss ible MR Brain without gadolinium Comparison: CT/SR - CT HEAD FOR STROKE - 10/17/24 15:59 EST Findings: No restricted diffusion. No intracranial mass or hemorrhage. No midline shift. No hydrocephalus. Vascular flow voids are intact. There are scattered foci of T2 hyperintensity within the white matter likely secondary to small-vessel ischemic change. The orbits are normal. The sinuses and mastoid air cells are clear. No focal bone lesion. IMPRESSION: No acute abnormality of the brain. This document has been electronically signed by: Harleen Cook MD on 10/17/2024 21:00:50
--- NOTE | 2024-10-17 15:58 | ECG_ITS ---
Test Reason : stroke Blood Pressure : */* mmHG Vent. Rate : 86 BPM Atrial Rate : 86 BPM P-R Int : 216 ms QRS Dur : 126 ms QT Int : 378 ms P-R-T Axes : 74 -40 90 degrees QTcB Int : 452 ms Sinus rhythm with 1st degree A-V block Left axis deviation Left ventricular hypertrophy with QRS widening and repolarization abnormality ( R in aVL , Jose product , Romhilt-Landa ) Abnormal ECG No previous ECGs available Referred By: Mitchel George Electronically Signed By: TRUDY YOUNG
--- NOTE | 2024-10-17 16:01 | ED.NEUROSD ---
HPI - Neuro Symptoms/Deficit General Chief Complaint: Stroke Stated Complaint: Stroke alert Time Seen by Provider: 10/17/24 15:57 Source: EMS Mode of arrival: EMS Limitations: no limitations History of Present Illness ED Provider: Dr. Mitchel George HPI Narrative: 79-year-old female history of bipolar disorder, GERD with esophagitis, dementia, anxiety, depression, hypercholesterolemia, hypertension who presents emergency department for evaluation of possible stroke. Information was obtained from EMS since the patient has an expressive aphasia. According to EMS the family reports that the patient was feeling off for 1-2 days. At 15:15 hours the patient was noted to have difficulty speaking. Patient had slurred speech and was having difficulty with word finding. She also had left facial numbness. Paramedics report that systolic blood pressure was 190, point of care glucose is 134. I did evaluate the patient on the EMS stretcher. The patient was able to tell me her name. She could not identify the month but was able to tell me her age. She does follow commands. Patient had no facial droop and had symmetric strength. Patient was sent directly from the EMS stretcher to CT scan for CT head contrast and CT angiogram of the head and neck. I was able obtain information from patient's son and daughter. The patient was not feeling well last night. She had no appetite and only ate some soup which is unusual for her. She was complaining of left shoulder pain which is chronic. This morning around 10:00 she felt off balance which was unusual for the patient. She took a shower and after the shower she was unable to walk since she was unsteady and had to be assisted up stairs by her family. The daughter checked on the patient at around 14:00 hours shopping but the patient did not feel well and did not go shopping. When the daughter came back at 15:15 hours the patient had difficulty talking and her speech was not comprehensible Related Data Home Medications ?Medication ?Instructions ?Recorded ?Confirmed albuterol sulfate 90 mcg/actuation 2 puff inhalation Q4-6H PRN 09/03/24 09/03/24 aerosol inhaler atorvastatin 80 mg tablet 80 mg PO DAILY 09/03/24 09/03/24 bupropion HCl 150 mg 24 hr tablet, 150 mg PO QAM 09/03/24 09/03/24 extended release buspirone 10 mg tablet 20 mg PO BID 09/03/24 09/03/24 cariprazine 3 mg capsule (Vraylar) 3 mg PO DAILY 09/03/24 09/03/24 famotidine 20 mg tablet 20 mg PO BID PRN 09/03/24 09/03/24 fluticasone propionate 50 1 spray intranasal DAILY 09/03/24 09/03/24 mcg/actuation nasal spray,suspension ibandronate 150 mg tablet 150 mg PO .monthly 09/03/24 09/03/24 lamotrigine 200 mg tablet 200 mg PO DAILY 09/03/24 09/03/24 Previous Rx's ?Medication ?Instructions ?Recorded doxepin 10 mg capsule 10 mg PO BEDTIME #30 caps 09/03/24 gabapentin 300 mg capsule 300 mg PO TID 30 days #90 caps 09/03/24 memantine 5 mg tablet 5 mg PO BID #60 tabs 09/03/24 pantoprazole 40 mg tablet,delayed 40 mg PO DAILY #30 tabs 09/03/24 release venlafaxine 225 mg tablet,extended 225 mg PO QAM #30 tabs 09/03/24 release 24 hr nifedipine 60 mg tablet,extended 60 mg PO DAILY #90 tabs 09/30/24 release lamotrigine 25 mg tablet 50 mg (2 x 25 mg) PO DAILY #60 tabs 10/15/24 Allergies Allergy/AdvReac Type Severity Reaction Status Date / Time No Known Allergies Allergy Verified 10/17/24 16:30 [facility] Past Medical History Medical History Overweight (BMI 25.0-29.9) Bipolar 1 disorder GERD without esophagitis Allergic rhinitis Dementia Anxiety Osteoporosis Pure hypercholesterolemia Essential hypertension Depression Arthritis Surgical History History of cataract extraction History of Mabel-en-Y gastric bypass History of arthroplasty of right shoulder History of total hip arthroplasty History of total knee arthroplasty Hx of arthroscopic knee surgery Family History Family History Other FH: mental illness Substance abuse Social History Social History Housing: Apartment Alcohol intake: never Patient Tobacco Use Status: Former Tobacco user Smoked in Last 30 Days: No e-Cigarette/Vaping Use: Never Used Use of substances other than those prescribed or required for medical reasons: No Advance Directives: No Advance Directives Information Provided: No service: No Current occupational status: unemployed Current occupational exposures/hazards: No Cognitive needs: No Hearing needs: No Vision needs: No Physical Exam Vital Signs: Vital Signs: Last Vital Signs Temp 98.7 F 10/18/24 00:29 Pulse 64 10/18/24 00:29 Resp 14 10/18/24 00:29 BP 142/71 H 10/18/24 00:29 Pulse Ox 95 10/18/24 00:29 O2 Del Method Room Air 10/18/24 00:29 BMI result Body Mass Index 30.5 Const: Other: Exam: General: Awake, alert in no distress, was able to tell me her name, age but not the Head: Normocephalic, atraumatic EENT: PERRL, Lids normal, sclera normal, conjunctiva normal, nose normal , ears normal, throat without erythema or exudates Neck: Supple, no adenopathy Lung: breath sounds symmetric, no wheezing, rales or rhonchi Chest: symmetric movement, nontender Heart: regular rate and rhythm, normal S1, S2 no murmurs or rubs Abdomen: soft, non-tender, nondistended, normal bowel sounds Back: no vertebral tenderness, no CVAT Extremities: no deformities, moves all extremities symmetrically Neuro: Awake, alert, oriented to person, patient can answer some questions but is struggling with word finding, could not identify objects, cranial nerves intact, moves all extremities symmetrically Psych: Pleasant, cooperative Medications Administered Generic Name Dose Route Start Last Admin Trade Name Freq PRN Reason Stop Dose Admin Enoxaparin Sodium 40 mg 10/17/24 20:00 10/17/24 21:23 Enoxaparin Sodium 40 Mg/0.4 Ml Syringe SUBCUT 40 mg Q24H MARTIN Administration Melatonin 6 mg 10/17/24 18:30 10/17/24 21:23 Melatonin 3 Mg Tablet PO 6 mg BEDTIME PRN Administration Insomnia Sodium Chloride 3 ml 10/18/24 00:00 10/17/24 21:25 0.9 % Sodium Chloride Flush 3 Ml Syringe IVFLUSH 3 ml QSHIFT MARTIN Administration Discontinued Medications Generic Name Dose Route Start Last Admin Trade Name Branden PRN Reason Stop Dose Admin Acetaminophen 650 mg 10/17/24 18:15 10/17/24 18:26 Acetaminophen 325 Mg Tablet PO 10/17/24 18:16 650 mg ONCE ONE Administration Aspirin 162 mg 10/17/24 18:15 10/17/24 18:26 Aspirin 81 Mg Tab.Chew PO 10/17/24 18:16 162 mg ONCE STA Administration Iohexol 100 ml 10/17/24 16:30 10/17/24 16:30 Iohexol 350 Mg/Ml 100 Ml Infus..Btl IV 10/17/24 16:31 70 ml ONCE ONE Administration Medical Decision Making Medical Decision Making MDM Narrative: 79-year-old female history of bipolar disorder, GERD with esophagitis, dementia, anxiety, depression, hypercholesterolemia, hypertension who presents emergency department for evaluation of possible stroke. Patient was not feeling well yesterday evening with decreased appetite and not able to express exactly why she was feeling unwell to her family this morning at 10:00 hours she was feeling off balance and needed assistance to get up stairs which is very unusual for this patient at 14:00 hours she reported not feeling well and refused to go shopping with her daughter. When the daughter returned at 15:15 hours the patient had an expressive aphasia. On presentation in the emergency department the patient was able to tell me her name, age, date of but did not know the month. Her neurologic exam was otherwise nonfocal in her NIH stroke scale was 3 The patient was started on gabapentin 3 times a day and received 3 doses yesterday and 1 dose this morning. Differential diagnosis: ?Includes but is not limited to stroke, TIA, intracranial bleed, electrolyte abnormalities, anemia, urinary tract infection Course: 17:55 My independent interpretation patient's laboratory evaluation is as follows: CBC was normal. Coags were normal. Comprehensive metabolic panel was unremarkable except for an elevated AST of 44. Urinalysis was negative. COVID-19, RSV and influenza were negative. CT scan of the brain did not reveal any acute abnormalities. CT angiogram head neck revealed no retrievable. 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 Staggering symptoms beginning last night and getting progressively worse this morning. Given that the last well-known time was sometimes yesterday evening, this patient was not a TNK candidate despite having expressive aphasia. There was no retrievable clot seen on the CT angiogram of the head and neck. I did discuss these findings with the patient's family. The patient will be admitted for further evaluation of her stroke. Adverse reaction to gabapentin also needs to be considered as a possible cause of her symptoms since she started this medication yesterday. Patient did pass her bedside swallowing test, therefore I did order Tylenol 650 mg for her neck pain and aspirin 162 mg orally for possible stroke. Patient has had a gastric bypass and the risks and benefits of aspirin versus gastric bleed needs to be considered in this patient. Admission/Observation Consideration of admission/observation: Escalation of care including admission/observation considered (Yes) Consult Healthcare Provider Management of the patient was discussed with: Hospitalist (Dr. Iglesias) Lab Data MDM Lab Attestation statement: I reviewed the patient's lab results. 10/17/24 17:00 10/17/24 17:00 Labs: Lab Results 10/17/24 10/17/24 10/17/24 Range/Units 16:11 16:56 17:00 WBC 6.0 (4.8-10.8) X10*3/uL RBC 4.30 (4.20-5.50) X10*6/uL Hgb 14.1 (12.0-16.0) g/dl Hct 42.1 (37.0-47.0) % MCV 97.9 (80.0-98.0) fL MCH 32.8 (27.0-33.0) pg MCHC 33.5 (31.0-35.0) g/dl RDW 12.7 (11.0-16.0) % Plt Count 181 (160-400) X10*3/uL MPV 8.9 L (9.4-12.3) fL Immature Gran % (Auto) 0.3 (0.0-0.4) % Neut % (Auto) 64.4 (45-73) % Lymph % (Auto) 27.3 (20-40) % [place] % (Auto) 6.0 (2-11) % Eos % (Auto) 1.5 (0-4) % Baso % (Auto) 0.5 (0-2) % Lymph # (Auto) 1.6 (1.2-4.9) X10*3/uL [place] # (Auto) 0.4 (0.1-1.2) X10*3/uL Eos # (Auto) 0.1 (0.0-0.4) X10*3/uL Baso # (Auto) 0.0 (0.0-0.2) X10*3/uL Abs Immat Gran (auto) 0.02 (0.00-0.03) X10*3/uL Absolute Neuts (auto) 3.9 (2.0-8.3) x10*3/uL Absolute Nucleated RBC 0.000 (0.0-0.012) X10*3/uL Nucleated RBC % (auto) 0.0 (0.0-0.2) /100WBC PT 10.4 L (10.9-12.4) SEC INR 0.9 (0.9-1.1) APTT 30.7 (26.0-36.8) SEC Sodium 140 (135-145) mmol/L Potassium 5.1 (3.3-5.1) mmol/L Chloride 109 H (96-108) mmol/L Carbon Dioxide 22 (22-29) mmol/L Anion Gap 14 (12-20) BUN 15 (9-16) mg/dL Creatinine 0.93 (0.5-1.4) mg/dL Estim Creat Clear Calc 41.2 Estimated GFR 58 POC Glucose 142 H (60-115) mg/dL Random Glucose 100 (60-115) mg/dL Calcium 8.9 (8.4-10.2) mg/dL Total Bilirubin 0.3 (0.0-1.0) mg/dL Direct Bilirubin 0.1 (0.0-0.5) mg/dL AST 44 H (5-31) U/L ALT 24 (0-31) U/L Alkaline Phosphatase 82 (39-117) U/L Troponin I High Sens < 2.7 (<3.5-17.0) ng/L Total Protein 8.5 H (6.5-8.0) g/dL Albumin 4.2 (3.5-5.0) g/dL Triglycerides 53 (<150) mg/dL Cholesterol 168 (<200) mg/dL LDL Cholesterol, Calc 88 (<100) mg/dL HDL Cholesterol 70 (>40) mg/dL Urine Color Urine Appearance Urine pH (5.0-9.0) Ur Specific [place] (1.005-1.025) Urine Protein (Neg-Trace) mg/dL Urine Glucose (UA) (Negative) mg/dL Urine Ketones (Negative) mg/dL Urine Blood (Negative) Urine Nitrite (Negative) Ur Leukocyte Esterase (Negative) Influenza Type A (PCR) NEGATIVE (Negative) Influenza Type B (PCR) NEGATIVE (Negative) RSV RNA Qual (PCR) NEGATIVE (Negative) SARS-CoV-2 RNA (RT-PCR) NEGATIVE (Negative) 10/17/24 Range/Units 17:03 WBC (4.8-10.8) X10*3/uL RBC (4.20-5.50) X10*6/uL Hgb (12.0-16.0) g/dl Hct (37.0-47.0) % MCV (80.0-98.0) fL MCH (27.0-33.0) pg MCHC (31.0-35.0) g/dl RDW (11.0-16.0) % Plt Count (160-400) X10*3/uL MPV (9.4-12.3) fL Immature Gran % (Auto) (0.0-0.4) % Neut % (Auto) (45-73) % Lymph % (Auto) (20-40) % [place] % (Auto) (2-11) % Eos % (Auto) (0-4) % Baso % (Auto) (0-2) % Lymph # (Auto) (1.2-4.9) X10*3/uL [place] # (Auto) (0.1-1.2) X10*3/uL Eos # (Auto) (0.0-0.4) X10*3/uL Baso # (Auto) (0.0-0.2) X10*3/uL Abs Immat Gran (auto) (0.00-0.03) X10*3/uL Absolute Neuts (auto) (2.0-8.3) x10*3/uL Absolute Nucleated RBC (0.0-0.012) X10*3/uL Nucleated RBC % (auto) (0.0-0.2) /100WBC PT (10.9-12.4) SEC INR (0.9-1.1) APTT (26.0-36.8) SEC Sodium (135-145) mmol/L Potassium (3.3-5.1) mmol/L Chloride (96-108) mmol/L Carbon Dioxide (22-29) mmol/L Anion Gap (12-20) BUN (9-16) mg/dL Creatinine (0.5-1.4) mg/dL Estim Creat Clear Calc Estimated GFR POC Glucose (60-115) mg/dL Random Glucose (60-115) mg/dL Calcium (8.4-10.2) mg/dL Total Bilirubin (0.0-1.0) mg/dL Direct Bilirubin (0.0-0.5) mg/dL AST (5-31) U/L ALT (0-31) U/L Alkaline Phosphatase (39-117) U/L Troponin I High Sens (<3.5-17.0) ng/L Total Protein (6.5-8.0) g/dL Albumin (3.5-5.0) g/dL Triglycerides (<150) mg/dL Cholesterol (<200) mg/dL LDL Cholesterol, Calc (<100) mg/dL HDL Cholesterol (>40) mg/dL Urine Color Yellow Urine Appearance Clear Urine pH 7.5 (5.0-9.0) Ur Specific [place] 1.010 (1.005-1.025) Urine Protein Negative (Neg-Trace) mg/dL Urine Glucose (UA) Negative (Negative) mg/dL Urine Ketones Negative (Negative) mg/dL Urine Blood Negative (Negative) Urine Nitrite Negative (Negative) Ur Leukocyte Esterase Negative (Negative) Influenza Type A (PCR) (Negative) Influenza Type B (PCR) (Negative) RSV RNA Qual (PCR) (Negative) SARS-CoV-2 RNA (RT-PCR) (Negative) Independent Interpretation I performed an independent interpretation of an: EKG Interpretation: My interpretation patient's 12 EKG done at 17:17 hours is as follows: Normal sinus rhythm with a first-degree block rate of 86, PA interval 216 milliseconds, prolonged QRS of 126 milliseconds, normal QTC of 452 milliseconds, no ST segment elevation, no ST segment depression, poor R-wave progression V1 through V3 no significant T-wave abnormalities, no PACs, no PVCs. Radiology Impression Discussion of test interpretation with radiology: I have reviewed the radiologist's reading. Radiologist Impression: CT head without contrast Comparison: None Findings: Involutional change and nonspecific white matter hypodensity. No intracranial mass, midline shift, hydrocephalus, or acute hemorrhage. Orbits, paranasal sinuses, and mastoid air cells are unremarkable. No skull fracture Impression: 1. No acute findings This document has been electronically signed by: Harleen Cook MD on 10/17/2024 16:13:18 CT angiography head and neck with contrast. 3D Postprocessing. Comparison: CT/SR - CT HEAD FOR STROKE - 10/17/24 15:59 EST Findings: Aortic arch and cervical great vessels are patent. No stenosis or dissection. Mild calcific plaque formation. Intracranial arteries are patent. No dissection, or occlusion. Persistent origin of the right posterior cerebral artery incidentally noted. 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 No abnormal intracranial enhancement. The visualized thyroid gland is unremarkable. No cervical mass or fluid collection. Lung apices clear. No acute fracture. IMPRESSION: 1. Patent head and neck CTA. 2. 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 This document has been electronically signed by: Harleen Cook MD on 10/17/2024 17:39:54 Independent Historian Clinical information obtained from an independent historian. History obtained from or confirmed by: Other (Daughter and son) External Record Review External record reviewed: Office record Chronic Conditions Patient?s care impacted by: Hypertension and Other (Hyperlipidemia) NIH Stroke Scale Internal: Initial- Upon Arrival Level of Consciousness: Alert Level of Consciousness Questions: Answers one question correctly Level of Consciousness Commands: Performs both tasks correctly Best Gaze: Normal Visual: No visual loss Facial Palsy: Normal Motor Arm (Right): No drift Motor Arm (Left): No drift Motor Leg (Right): No drift Motor Leg (Left): No drift Limb Ataxia: Absent Sensory: Normal Best Language: Mild to moderate aphasia Dysarthia: Normal Extinction and Inattention: No abnormality Score: 2 Critical Care Time Critical Care Time Critical Care Time: Yes Total Critical Care Time: 45 Attestation: Critical Care: The patient was critically ill with a high probability of imminent or life threatening deterioration. I spent greater than 30 minutes of discontinuous time evaluating the patient,delivering critical care at the bedside, discussing and evaluating pertinent data with consultants. Critical care time does not include time spent performing separately billable procedures or teaching. Total time spent performing critical care was 45 minutes. Discharge Plan Discharge Clinical Impression: Expressive aphasia, Ataxia Patient Disposition: Admitted As Inpatient
[2024-10-17 16:16] LABS: Glucose, Whole Blood 142 mg/dL (60-115)
[2024-10-17 16:29] VITALS: BP 195/74; PULSE 90; O2SAT 97
[2024-10-17 16:30] VITALS: BMI 30.5
[2024-10-17] MEDS: iohexoL 350 MG/ML 100 ML INFUS..BTL IV (16:30)
[2024-10-17 16:52] VITALS: PULSE 87; RESP 18; O2SAT 100
[2024-10-17 17:04] LABS: MANUAL DIFF FLAG NO
[2024-10-17 17:05] LABS: Basophils Percent Auto 0.5 % (0-2); Eosinophils Absolute Auto 0.1 X10*3/uL (0.0-0.4); Eosinophils Percent Auto 1.5 % (0-4); Hematocrit 42.1 % (37.0-47.0); Hemoglobin 14.1 g/dl (12.0-16.0); Imm Gran Abs Auto 0.02 X10*3/uL (0.00-0.03); Imm Gran Pct Auto 0.3 % (0.0-0.4); Lymphocytes Absolute Auto 1.6 X10*3/uL (1.2-4.9); Lymphocytes Percent Auto 27.3 % (20-40); Mean Corpuscular HGB Conc 33.5 g/dl (31.0-35.0); Mean Corpuscular Hemoglobin 32.8 pg (27.0-33.0); Mean Corpuscular Volume 97.9 fL (80.0-98.0); Mean Platelet Volume 8.9 fL (9.4-12.3); Monocytes Absolute Auto 0.4 X10*3/uL (0.1-1.2); Neutrophils Absolute Auto 3.9 x10*3/uL (2.0-8.3); Neutrophils Percent Auto 64.4 % (45-73); Platelet Count 181 X10*3/uL (160-400); Red Cell Distribution Width 12.7 % (11.0-16.0)
[2024-10-17 17:08] LABS: Appearance Urine Clear; Color Urine Yellow; Glucose Urine UA Negative (Negative); Leukocyte Esterase Urine Negative (Negative); Nitrite Urine Negative (Negative); PH 7.5 (5.0-9.0); Urine Blood Negative (Negative); Urine Ketones Negative (Negative); Urine Protein Negative (Neg-Trace)
--- NOTE | 2024-10-17 17:09 | PC.NURSE ---
Arrived via ems , daughter/ patient reports that patient has not been feeling well for the last few days. Daughter went to get her today to go shopping but patient said she wasnt feeling well. When daughter returned around 3pm patient noted to have garbed speech. upon arrival patient with garbled speech and word finding difficulty. Brought to CT, patient difficulty stick multiple attempts made before 20 g able to be placed in right wrist. Patient reports neck pain that is chronic but worse today. Labs obtained, daughter at bedside
[2024-10-17 17:10] LABS: INTERNATIONAL NORM RATIO 0.9 (0.9-1.1); Prothrombin Time 10.4 SEC (10.9-12.4)
[2024-10-17 17:13] LABS: Partial Thromboplastin Time 30.7 SEC (26.0-36.8)
[2024-10-17 17:19] LABS: Stroke Lab Use COMPLETE
[2024-10-17 17:25] LABS: Anion Gap 14 (12-20); Troponin-I High Sensitivity < 2.7 ng/L (<3.5-17.0)
[2024-10-17 17:31] LABS: Alanine Aminotransferase 24 U/L (0-31); Albumin Level 4.2 g/dL (3.5-5.0); Alkaline Phosphatase 82 U/L (39-117); Aspartate Amino Transferase 44 U/L (5-31); Bilirubin Direct 0.1 mg/dL (0.0-0.5); Bilirubin Total 0.3 mg/dL (0.0-1.0); Blood Urea Nitrogen 15 mg/dL (9-16); Calcium 8.9 mg/dL (8.4-10.2); Carbon Dioxide 22 mmol/L (22-29); Chloride 109 mmol/L (96-108); Cholesterol 168 mg/dL (<200); Creatinine Clr Calc Pharmacy 41.2; Estimated Glomerular Filt Rate 58; Glucose Random 100 mg/dL (60-115); HDL Cholesterol 70 mg/dL (>40); LDL Cholesterol Calculated 88 mg/dL (<100); Potassium 5.1 mmol/L (3.3-5.1); Sodium 140 mmol/L (135-145); Total Protein 8.5 g/dL (6.5-8.0); Triglycerides 53 mg/dL (<150)
[2024-10-17 17:41] LABS: Influenza A PCR NEGATIVE (Negative); Influenza B PCR NEGATIVE (Negative); Resp Syncy Virus RNA Qual PCR NEGATIVE (Negative); SARS COV2 PCR INHOUSE NEGATIVE (Negative)
--- NOTE | 2024-10-17 18:19 | P.HPHOSP_ITS ---
History of Present Illness Date of Service: 10/17/24 Attending physician on admission: Collin Iglesias Chief Complaint: Aphasia This is a 79-year-old female past medical history significant for bipolar disorder, GERD with esophagitis, dementia, anxiety, depression, hypercholesterolemia, hypertension who presented to the emergency department for evaluation of possible stroke. Yesterday evening she was not feeling well was having decreased appetite and not able to express exactly what she was feeling. This morning at approximately 10:00 she felt like she was off balance and needed help walking particularly when going up the stairs. At around 15:15 she developed difficulty with word finding. Patient also reports at some point today she was experiencing double vision this has since subsided. Recently started on gabapentin 300 mg t.i.d. last took a dose this morning. Denies fevers, chills, chest pain, shortness of breath, headache, vision changes, dizziness, weakness, nausea, vomiting, abdominal pain Review of Systems 2 Review of Systems: Yes all other systems are reviewed and are negative [facility] Medical History Overweight (BMI 25.0-29.9) Bipolar 1 disorder GERD without esophagitis Allergic rhinitis Dementia Anxiety Osteoporosis Pure hypercholesterolemia Essential hypertension Depression Arthritis Family History Other FH: mental illness Substance abuse Surgical History History of cataract extraction History of Mabel-en-Y gastric bypass History of arthroplasty of right shoulder History of total hip arthroplasty History of total knee arthroplasty Hx of arthroscopic knee surgery Social History Housing: Apartment Alcohol intake: never Patient Tobacco Use Status: Former Tobacco user Smoked in Last 30 Days: No e-Cigarette/Vaping Use: Never Used Use of substances other than those prescribed or required for medical reasons: No Advance Directives: No Advance Directives Information Provided: No service: No Current occupational status: unemployed Current occupational exposures/hazards: No Cognitive needs: No Hearing needs: No Vision needs: No Meds Allergies Allergy/AdvReac Type Severity Reaction Status Date / Time No Known Allergies Allergy Verified 10/17/24 16:30 Home Medications ?Medication ?Instructions ?Recorded ?Confirmed ?Last Taken ?Type albuterol sulfate 90 mcg/actuation 2 puff inhalation Q4-6H PRN 09/03/24 09/03/24 Unknown History aerosol inhaler atorvastatin 80 mg tablet 80 mg PO DAILY 09/03/24 09/03/24 Unknown History bupropion HCl 150 mg 24 hr tablet, 150 mg PO QAM 09/03/24 09/03/24 Unknown History extended release buspirone 10 mg tablet 20 mg PO BID 09/03/24 09/03/24 Unknown History cariprazine 3 mg capsule (Vraylar) 3 mg PO DAILY 09/03/24 09/03/24 Unknown History famotidine 20 mg tablet 20 mg PO BID PRN 09/03/24 09/03/24 Unknown History fluticasone propionate 50 1 spray intranasal DAILY 09/03/24 09/03/24 Unknown History mcg/actuation nasal spray,suspension ibandronate 150 mg tablet 150 mg PO .monthly 09/03/24 09/03/24 Unknown History lamotrigine 200 mg tablet 200 mg PO DAILY 09/03/24 09/03/24 Unknown History Physical Exam 2 Vital Signs and Narrative: Vital Signs: Last Vital Signs Pulse 87 10/17/24 16:52 Resp 18 10/17/24 16:52 Pulse Ox 100 10/17/24 16:52 O2 Del Method Room Air 10/17/24 16:52 BMI result Body Mass Index 30.5 Vital signs stable Appearance: Alert.? Oriented X3.? No acute distress.? Head: Normocephalic, atraumatic, no step-offs or deformities Eyes: Pupils equal, round and reactive to light.? Horizontal nystagmus bilaterally. ENT: Pharynx normal.? Neck: Normal inspection.? Neck supple.? CVS: Normal heart rate and rhythm.? Pulses normal.? Respiratory: No respiratory distress.? Breath sounds normal.? Abdomen: Soft and nontender.? Skin: Skin warm and dry.? Normal skin color.? Normal skin turgor.? Extremities: No lower extremity edema.? No calf ttp. Global weakness no focal neuro deficits. Back: No midline tenderness, no C-spine tenderness, full range of motion, no CVA tenderness bilaterally Neuro: Oriented X 3.? Sensory and motor intact. CN 2-12 intact Results Labs 10/17/24 17:00 10/17/24 17:00 Labs: Laboratory Results - last 24 hr 10/17/24 10/17/24 10/17/24 16:11 16:56 17:00 MCV 97.9 MCH 32.8 MCHC 33.5 RDW 12.7 Plt Count 181 MPV 8.9 L Immature Gran % (Auto) 0.3 Neut % (Auto) 64.4 Lymph % (Auto) 27.3 [place] % (Auto) 6.0 Eos % (Auto) 1.5 Baso % (Auto) 0.5 Lymph # (Auto) 1.6 [place] # (Auto) 0.4 Eos # (Auto) 0.1 Baso # (Auto) 0.0 Abs Immat Gran (auto) 0.02 Absolute Neuts (auto) 3.9 Absolute Nucleated RBC 0.000 Nucleated RBC % (auto) 0.0 PT 10.4 L INR 0.9 APTT 30.7 Anion Gap 14 Estim Creat Clear Calc 41.2 Estimated GFR 58 POC Glucose 142 H Random Glucose 100 Calcium 8.9 Total Bilirubin 0.3 Direct Bilirubin 0.1 AST 44 H ALT 24 Alkaline Phosphatase 82 Troponin I High Sens < 2.7 Total Protein 8.5 H Albumin 4.2 Triglycerides 53 Cholesterol 168 LDL Cholesterol, Calc 88 HDL Cholesterol 70 Urine Color Urine Appearance Urine pH Ur Specific [place] Urine Protein Urine Glucose (UA) Urine Ketones Urine Blood Urine Nitrite Ur Leukocyte Esterase Influenza Type A (PCR) NEGATIVE Influenza Type B (PCR) NEGATIVE RSV RNA Qual (PCR) NEGATIVE SARS-CoV-2 RNA (RT-PCR) NEGATIVE 10/17/24 17:03 MCV MCH MCHC RDW Plt Count MPV Immature Gran % (Auto) Neut % (Auto) Lymph % (Auto) [place] % (Auto) Eos % (Auto) Baso % (Auto) Lymph # (Auto) [place] # (Auto) Eos # (Auto) Baso # (Auto) Abs Immat Gran (auto) Absolute Neuts (auto) Absolute Nucleated RBC Nucleated RBC % (auto) PT INR APTT Anion Gap Estim Creat Clear Calc Estimated GFR POC Glucose Random Glucose Calcium Total Bilirubin Direct Bilirubin AST ALT Alkaline Phosphatase Troponin I High Sens Total Protein Albumin Triglycerides Cholesterol LDL Cholesterol, Calc HDL Cholesterol Urine Color Yellow Urine Appearance Clear Urine pH 7.5 Ur Specific [place] 1.010 Urine Protein Negative Urine Glucose (UA) Negative Urine Ketones Negative Urine Blood Negative Urine Nitrite Negative Ur Leukocyte Esterase Negative Influenza Type A (PCR) Influenza Type B (PCR) RSV RNA Qual (PCR) SARS-CoV-2 RNA (RT-PCR) Assessment and Plan (1) Expressive aphasia: Status: Acute (2) Dementia: Qualifiers: Dementia type: unspecified type Dementia severity: unspecified severity Dementia behavioral or psychological symptom: without behavioral, psychotic, or mood disturbance or anxiety Qualified Code(s): F03.90 - Unspecified dementia, unspecified severity, without behavioral disturbance, psychotic disturbance, mood disturbance, and anxiety Status: Acute (3) Bipolar 1 disorder: Status: Acute (4) GERD without esophagitis: Status: Acute (5) Essential hypertension: Status: Acute (6) Pure hypercholesterolemia: Status: Acute (7) Depression: Qualifiers: Depression Type: major depressive disorder Major depression recurrence: recurrent Active/Remission status: currently active Major depression episode severity: unspecified Qualified Code(s): F33.9 - Major depressive disorder, recurrent, unspecified Status: Acute (8) Anxiety: Status: Acute Plan 79-year-old female presents to the emergency department for evaluation of potential stroke at 10:00 she was feeling off balance at 15:15 she developed expressive aphasia. Upon arrival to the emergency department she was able to tell the emergency room physician her name, age and date of however her expressive aphasia seems to be getting worse. Blood work in the emergency department was unremarkable urinalysis negative flu COVID/RSV negative. Patient's head CT without contrast no acute findings. CT angio head and neck revealed no retrievable clot but does have an incidental 2 mm aneurysm. Patient not a TNK candidate or clot retrieval candidate. She will be evaluated for further evaluation and treatment. # CVA #Expressive aphasia -Possible CVA versus medication side effect from gabapentin which was recently started. -D/c gabapentin at this time - Neurology consult for expressive aphasia - MRI ordered # Hypertension -Nifedipine 60 mg ER daily #HLD -Atorvastatin 80 mg daily #GERD w/ esophagitits - famotidine 20 mg po BID - Pantoprazole 40 mg daily #Dementia -Memantine 5 mg po BID #Bipolar disorder - Cariprazine 3 mg daily #Anxiety #Depression - Doxepin 10 mg bedtime - Buspirone 20 mg BID -Bupropion HCL 150 mg 24 H tablet Q am #Osteoperosis -Ibandronate 150 mg po monthly Code status:Full code DVTP: Lovenox 40 mg Q 24 H Quality Stroke Does the patient have a stroke diagnosis?: No VTE Prior VTE?: No VTE Risk Level:: Medical - moderate - high VTE Device Contraindication: Treatment Not Indicated VTE Drug Contraindication: N/A - Med Ordered
[2024-10-17] MEDS: Aspirin 81 MG TAB.CHEW 162 MG PO (18:26)
[2024-10-17] MEDS: Acetaminophen 325 MG TABLET 650 MG PO (18:26)
[2024-10-17 19:38] VITALS: BP 141/56; PULSE 78; RESP 13; TEMP 37.1; O2SAT 93
--- NOTE | 2024-10-17 20:56 | MHC.EDTECH ---
patient transferred to hospital bed. patient into position of comfort. Call cole in place
--- NOTE | 2024-10-17 20:57 | PC.NURSE ---
Assumed care of pt at 1900,. pt MRI form complete and pt went for MRI scan, back to bed, requesting something to help her sleep. Will medicated with PRN melatonin.
[2024-10-17] MEDS: Enoxaparin Sodium 40 MG/0.4 ML SYRINGE SUBCUT (21:23)
[2024-10-17] MEDS: Melatonin 3 MG TABLET 6 MG PO (21:23)
[2024-10-17] MEDS: 0.9 % Sodium Chloride Flush 3 ML SYRINGE IVFLUSH (21:25)
[2024-10-18 00:29] VITALS: BP 142/71; PULSE 64; RESP 14; TEMP 37.1; O2SAT 95
[2024-10-18] MEDS: Ketorolac Tromethamine 15 MG/ML VIAL IVPUSH (04:52)
[2024-10-18 05:42] VITALS: BP 144/68; PULSE 59; RESP 18; TEMP 36.8; O2SAT 93
--- NOTE | 2024-10-18 06:11 | PC.NURSE ---
Pt c/o 05/01 back pain and neck pain, repositioned, MD made aware of pain and IV toradol ordered and administered. Pt verbalized some improvement in pain
[2024-10-18 06:38] LABS: MANUAL DIFF FLAG NO
[2024-10-18 06:56] LABS: Basophils Percent Auto 0.4 % (0-2); Eosinophils Absolute Auto 0.1 X10*3/uL (0.0-0.4); Eosinophils Percent Auto 2.8 % (0-4); Hematocrit 35.4 % (37.0-47.0); Hemoglobin 11.7 g/dl (12.0-16.0); Imm Gran Abs Auto 0.01 X10*3/uL (0.00-0.03); Imm Gran Pct Auto 0.2 % (0.0-0.4); Lymphocytes Absolute Auto 1.9 X10*3/uL (1.2-4.9); Lymphocytes Percent Auto 38.2 % (20-40); Mean Corpuscular HGB Conc 33.1 g/dl (31.0-35.0); Mean Corpuscular Hemoglobin 32.9 pg (27.0-33.0); Mean Corpuscular Volume 99.4 fL (80.0-98.0); Mean Platelet Volume 9.7 fL (9.4-12.3); Monocytes Absolute Auto 0.4 X10*3/uL (0.1-1.2); Monocytes Percent Auto 7.5 % (2-11); Neutrophils Absolute Auto 2.6 x10*3/uL (2.0-8.3); Neutrophils Percent Auto 50.9 % (45-73); Platelet Count 181 X10*3/uL (160-400); Red Blood Count 3.56 X10*6/uL (4.20-5.50); Red Cell Distribution Width 12.5 % (11.0-16.0); White Blood Count 5.1 X10*3/uL (4.8-10.8)
[2024-10-18 07:08] LABS: Alanine Aminotransferase 20 U/L (0-31); Albumin Level 3.5 g/dL (3.5-5.0); Alkaline Phosphatase 80 U/L (39-117); Anion Gap 9 (12-20); Aspartate Amino Transferase 43 U/L (5-31); Bilirubin Total 0.3 mg/dL (0.0-1.0); Blood Urea Nitrogen 15 mg/dL (9-16); Calcium 8.2 mg/dL (8.4-10.2); Carbon Dioxide 25 mmol/L (22-29); Chloride 110 mmol/L (96-108); Creatinine Clr Calc Pharmacy 44.6; Estimated Glomerular Filt Rate > 60; Glucose Random 84 mg/dL (60-115); Potassium 4.3 mmol/L (3.3-5.1); Sodium 140 mmol/L (135-145); Total Protein 6.9 g/dL (6.5-8.0)
[2024-10-18] MEDS: 0.9 % Sodium Chloride Flush 3 ML SYRINGE IVFLUSH (08:03)
[2024-10-18 09:35] VITALS: BP 115/55; PULSE 62; RESP 18; TEMP 37.3; O2SAT 94
--- NOTE | 2024-10-18 11:24 | PHA.MEDREC ---
Addendum entered by Lorraine Gannon [facility] 10/18/24 13:09: reviewed by [facility]. Addendum entered by Azra Pringle 10/18/24 12:59: Got a list from patients old pharmacy [facility] in [place] and called to confirm the Atorvastatin 80mg tab and Buspirone 10mg tab. [facility] state they have not filled the Atorvastatin 80mg tab since January, looking on recent fill list it states it was filled 07/23/24 but patients pharmacy had no claims for that and for the Buspirone they confirmed they filled it on 08/27 for a 30 day. We kept them unconfirmed since the patient, family or pharmacy has no indication if patient should still be taking them or not. Original Note: Pharmacy Consult ? Medication Reconciliation Pharmacy has completed the medication reconciliation. Spoke with patients daughter at bedside and she had a list from her brother of her moms medications I was able to confirm some with but Atorvastatin, Buspirone, Doxepin and Ibandronate were not on the list and the patients daughter was not sure but messaged her brother to look for those. I went back a bit later to the room and the patients son was here at bedside now and I spoke with him. He stated the patient is no longer taking the Doxepin due to it making her too dizzy while taking it. The son also confirmed his moms Ibandronate and stated she last took it the of this month. Also he stated the patient recently moved up here from [place] in June and had brought some of her medications up here from her old pharmacy [facility] and stated she had all her medications transferred to [facility] on [facility] in [place]. I called and asked about the Atorvastatin and they state they have no claims for that medication ever being filled or transferred there, I also asked about Buspirone tabs and they stated they sent a request to a Dr for the patient but is still waiting to hear back on that medication. I called [facility] to inquire about the Atorvastatin and Buspirone and stated they have not filled the Atorvastatin since 05/11 for 90 days and they have not filled the Buspirone since 06/30 for 30 days. I also asked about the Ibandronate and they confirmed they last filled that in June for a 90 day supply. The patients daughter and son confirmed the patient last took her medications yesterday morning.
--- NOTE | 2024-10-18 11:25 | PM.NEUROCN ---
History of Present Illness Data of Consult Service Date: 10/18/24 Primary Care Provider: Jacob Vale MD HPI This is a 79-year-old female with bipolar disorder, GERD with esophagitis, dementia, anxiety, depression, hypercholesterolemia, hypertension who presented to the emergency department for evaluation of possible stroke. Yesterday evening she was not feeling well was having decreased appetite and not able to express exactly what she was feeling. This morning at approximately 10:00 she felt like she was off balance and needed help walking particularly when going up the stairs. At around 15:15 she developed difficulty with word finding and was slurring her words. Patient also reports at some point today she was experiencing double vision this has since subsided. Recently started on gabapentin 300 mg t.i.d. last took a dose this morning. Denies fevers, chills, chest pain, shortness of breath, headache, vision changes, dizziness, weakness, nausea, vomiting, abdominal pain. MRI brain negative, CTA negative . incidental 2mm NATASHA aneurysm. All Sx resolved in 5-6 hrs. No previou sstroke or TIA. She mazariegos sbeen getting brief vertiginous spells that can make her fall. Has a noise in right ear. [facility] Past Medical History Medical History Overweight (BMI 25.0-29.9) Bipolar 1 disorder GERD without esophagitis Allergic rhinitis Dementia Anxiety Osteoporosis Pure hypercholesterolemia Essential hypertension Depression Arthritis Family History Family History Other FH: mental illness Substance abuse Surgical History Surgical History History of cataract extraction History of Mabel-en-Y gastric bypass History of arthroplasty of right shoulder History of total hip arthroplasty History of total knee arthroplasty Hx of arthroscopic knee surgery Social History Social History Household Members: Family Housing: House Do you presently have visiting nurse or other home services: No Alcohol intake: never Patient Tobacco Use Status: Former Tobacco user Smoked in Last 30 Days: No e-Cigarette/Vaping Use: Never Used Patient Interested in Nicotine Replacement: No Patient Given Instructions on How to Stop Smoking: No Second Hand Smoke Exposure: No Use of substances other than those prescribed or required for medical reasons: No Currently Displaying Signs/Symptoms of Drug Intoxication Withdrawal: No Any prior treatment program specific to substance use: No Have you been hit, kicked, punched, or otherwise hurt by someone within the past year? If so, by whom?: No Do you feel safe in your current relationship?: No Current Relationship Is there a partner from a previous relationship who is making you feel unsafe now?: No Are you made to feel afraid or neglected: No Spiritual Healthcare Practices: no Advance Directives: No Advance Directives Information Provided: No Do you have a plan to hurt others: No Plan Recently lost weight without trying: No Eating poorly because of decreased appetite: No Nutrition Risks: No Nutritional Risk Patient : No : No Poor oral hygiene: No service: No Current occupational status: unemployed Current occupational exposures/hazards: No Cognitive needs: No Hearing needs: No Vision needs: No Meds Allergies Allergy/AdvReac Type Severity Reaction Status Date / Time No Known Allergies Allergy Verified 10/17/24 16:30 Active Medications: Current Medications Acetaminophen (Acetaminophen 325 Mg Tablet) 650 mg PO Q6H PRN PRN Reason: Pain, Mild 1-3,fever,headache Aspirin (Aspirin 81 Mg Tab.Chew) 81 mg PO DAILY COUNTS INCLUDE 234 BEDS AT THE [facility] Calcium Carbonate (Calcium Carbonate 750 Mg Tab.Chew) 750 mg PO Q4H PRN PRN Reason: Heartburn Enoxaparin Sodium (Enoxaparin Sodium 40 Mg/0.4 Ml Syringe) 40 mg SUBCUT Q24H COUNTS INCLUDE 234 BEDS AT THE [facility] Last Admin: 10/17/24 21:23 Dose: 40 mg Magnesium Hydroxide (Milk Of Magnesia 30 Ml Oral.Susp) 30 ml PO DAILY PRN PRN Reason: Constipation Melatonin (Melatonin 3 Mg Tablet) 6 mg PO BEDTIME PRN PRN Reason: Insomnia Last Admin: 10/17/24 21:23 Dose: 6 mg Pharmacy Consult (Consult Rx Anticoag Dosing) 1 each MISCELLANE DAILY PRN; Protocol PRN Reason: Consult order Sodium Chloride (0.9 % Sodium Chloride Flush 3 Ml Syringe) 3 ml IVFLUSH QSHIFT COUNTS INCLUDE 234 BEDS AT THE [facility] Last Admin: 10/18/24 08:03 Dose: 3 ml Home Medications ?Medication ?Instructions ?Recorded ?Confirmed ?Last Taken ?Type albuterol sulfate 90 mcg/actuation 2 puff inhalation Q4-6H PRN 09/03/24 10/18/24 Unknown History aerosol inhaler Shortness Of Breath Or Wheezing bupropion HCl 150 mg 24 hr tablet, 150 mg PO DAILY 09/03/24 10/18/24 10/17/24 History extended release cariprazine 3 mg capsule (Vraylar) 3 mg PO DAILY 09/03/24 10/18/24 10/17/24 History famotidine 20 mg tablet 40 mg PO DAILY PRN Acid Reflux 09/03/24 10/18/24 Unknown History fluticasone propionate 50 1 spray intranasal DAILY PRN Nasal 09/03/24 10/18/24 Unknown History mcg/actuation nasal Congestion spray,suspension ibandronate 150 mg tablet 150 mg PO Q28D 09/03/24 10/18/24 09/22/24 History lamotrigine 200 mg tablet 200 mg PO DAILY 09/03/24 10/18/24 10/17/24 History memantine 10 mg tablet 20 mg PO DAILY 10/18/24 10/18/24 10/17/24 History pantoprazole 40 mg tablet,delayed 40 mg PO DAILY@0630 10/18/24 10/18/24 10/17/24 History release venlafaxine 225 mg tablet,extended 225 mg PO DAILY 10/18/24 10/18/24 10/17/24 History release 24 hr Physical Exam Vital Signs: Vital Signs: Last Vital Signs Temp 99.1 F 10/18/24 09:35 Pulse 62 10/18/24 09:35 Resp 18 10/18/24 09:35 BP 115/55 L 10/18/24 09:35 Pulse Ox 94 10/18/24 09:35 O2 Del Method Room Air 10/18/24 09:35 BMI result Body Mass Index 30.5 Neuro: Other: She's alert and oriented with normal intellectual functions. Speech and language functions are normal. She has a central nystagmus on lateral gaze, which alternates Directions. , Otherwise nonfocal examination. Results Labs 10/18/24 05:29 10/18/24 05:29 Labs: Short CBC 10/17/24 10/18/24 Range/Units 17:00 05:29 WBC 6.0 5.1 (4.8-10.8) X10*3/uL Hgb 14.1 11.7 L (12.0-16.0) g/dl Hct 42.1 35.4 L (37.0-47.0) % Plt Count 181 181 (160-400) X10*3/uL BMP 10/17/24 10/18/24 17:00 05:29 Sodium 140 140 Potassium 5.1 4.3 Chloride 109 H 110 H Carbon Dioxide 22 25 BUN 15 15 Creatinine 0.93 0.86 Calcium 8.9 8.2 L D Liver Function 10/17/24 10/18/24 Range/Units 17:00 05:29 Total Bilirubin 0.3 0.3 (0.0-1.0) mg/dL Direct Bilirubin 0.1 (0.0-0.5) mg/dL AST 44 H 43 H (5-31) U/L ALT 24 20 (0-31) U/L Alkaline Phosphatase 82 80 (39-117) U/L Albumin 4.2 3.5 (3.5-5.0) g/dL Urine 10/17/24 Range/Units 17:03 Urine Color Yellow Urine Appearance Clear Urine pH 7.5 (5.0-9.0) Ur Specific [place] 1.010 (1.005-1.025) Urine Protein Negative (Neg-Trace) mg/dL Urine Glucose (UA) Negative (Negative) mg/dL Assessment and Plan (1) Expressive aphasia: Status: Acute Possible TIA versus anxiety. She also has episodic brief momentary vertigo, which suggests a central or vestibular system abnormality. She does have a central nystagmus on neurological exam. Brain MRI does not show any definite reason for this. Would recommend using meclizine 25 mg at bedtime. (2) Neck pain: Status: Acute She also complains of chronic neck pain and headaches which could be related to cervical spondylosis Recommendation: Cervical spine x-rays. Check sedimentation rate. Symptomatic treatment of her neck pain with nonsteroidal anti-inflammatory and cyclobenzaprine 10 mg at bedtime Procedures Date of Service Date of Service: 10/18/24
[2024-10-18 11:31] VITALS: BP 113/53; PULSE 67; RESP 18; TEMP 36.7; O2SAT 95
[2024-10-18] MEDS: Aspirin 81 MG TAB.CHEW PO (12:00)
--- NOTE | 2024-10-18 12:42 | MHC.CM.PN ---
IMM 10/18/24, PT W/?CVA, BRAIN MRI NEGATIVE, CM MET W/PT AT BEDSIDE, SON MC AND ANOTHER FAMILY MEMBER AT BEDSIDE, PT REPORTS SHE LIVES W/SON MC, MC REPORTS PT JUST CAME FROM [place] AND PT HAS SEEN NEW PCP DR. ALDANA AND THEY ARE WAITING FOR MULTI DISCIPLINED LANGUAGE ANALYST SERVICES TO START. PT HAS A CANE/WALKER/WC AT HOME, AWAITING MULTI DISCIPLINED LANGUAGE ANALYST HRS TO START, NO VNA SERVICES. FAMILY BROUGHT IN COPIES OF MOLST AND HCP, HCA IS NIYA [phone], ALTERNATE IS SON MC WHOM PT LIVES WITH. CM ALSO MADE COPIES OF [facility]/MEDICARE/MEDICAID CARDS AND WILL BE DROPPED OFF AT REGISTRATION IN ED.
[2024-10-18] MEDS: Meclizine HCl 25 MG TABLET PO (13:37)
[2024-10-18] MEDS: Memantine HCl 10 MG TABLET 20 MG PO (13:37)
[2024-10-18] MEDS: Venlafaxine HCl ER 75 MG CAP.ER.24H 225 MG PO (13:37)
[2024-10-18] MEDS: buPROPion HCl XL 150 MG TAB.ER.24H PO (13:37)
[2024-10-18] MEDS: Acetaminophen 325 MG TABLET 650 MG PO (13:39)
[2024-10-18] MEDS: Omeprazole 20 MG CAPSULE.DR PO (13:39)
[2024-10-18 13:40] VITALS: BP 132/60
[2024-10-18] MEDS: lamoTRIgine 100 MG TABLET 200 MG PO (13:40)
[2024-10-18] MEDS: NIFEdipine ER 60 MG TAB.ER.24 PO (13:40)
[2024-10-18] MEDS: lamoTRIgine 25 MG TABLET 50 MG PO (13:43)
[2024-10-18] MEDS: Cariprazine HCl 3 MG CAPSULE PO (13:43)
[2024-10-18 15:42] VITALS: BP 129/56; PULSE 66; RESP 20; TEMP 36.8; O2SAT 94
--- NOTE | 2024-10-18 15:53 | P.F2F_ITS ---
Service Date Service Date: 10/18/24 Encounter Date of encounter: 10/18/24 Reasons for Services Signs and symptoms assessed: aphasia polypharmacy Reason for detention: neurological assessment and teach disease management Reason for speech therapy: speech impairment and cognitive impairment Overseeing Care: Jacob Vale Homebound: Leaving the home is medically contraindicated at this time without the asist of a device and/or another person due th the listed conditions above and below. Reason homebound: cognitively impaired / unsafe Certification: Based on the above findings, I certify that this patient is confined to the home and needs intermittent detention care, physical therapy and/or speech therapy, or continues to need occupational therapy. The patient is under my care, and I have initiated the establishment of the plan of care. The patient will be followed by a physician who will periodically review the plan of care. Time Spent With Patient Time: Total time managing care of this patient today ____ minutes.
--- NOTE | 2024-10-18 15:54 | PM.DS ---
DS: Providers Provider Date of Service: 10/18/24 Date of admission: 10/17/24 22:48 Date of discharge: 10/18/24 Primary care physician: Jacob aVle MD Consults: 10/17/24 18:30 Consult to Neurology Routine Consulting Provider: [facility] Reason for consultation: expressive aphasia cva vs med side effects Has provider been notified: No DS: Diagnosis Discharge Diagnosis (1) Expressive aphasia: Status: Acute (2) Neck pain: Status: Acute (3) TIA (transient ischemic attack): Status: Acute (4) Gabapentin adverse reaction: Status: Acute DS: Summary Hospital Course Hospital Course: From the history and physical by the admitting hospitalist, ELBA De Leon, 10/17/24: This is a 79-year-old female past medical history significant for bipolar disorder, GERD with esophagitis, dementia, anxiety, depression, hypercholesterolemia, hypertension who presented to the emergency department for evaluation of possible stroke. Yesterday evening she was not feeling well was having decreased appetite and not able to express exactly what she was feeling. This morning at approximately 10:00 she felt like she was off balance and needed help walking particularly when going up the stairs. At around 15:15 she developed difficulty with word finding. Patient also reports at some point today she was experiencing double vision this has since subsided. Recently started on gabapentin 300 mg t.i.d. last took a dose this morning. Denies fevers, chills, chest pain, shortness of breath, headache, vision changes, dizziness, weakness, nausea, vomiting, abdominal pain She was admitted to the telemetry unit. Aphasia improved though she had persistent vertigo. No CVA on MRI. Neurology was consulted. Concern for TIA versus gabapentin adverse effect. She is already on a high-intensity statin. Aspirin was added for prevention. She was seen by CALENDERING MACHINE OPERATOR and speech therapy through VNA was recommended. Gabapentin was stopped. For vertigo, meclizine was prescribed. For neck pain, cyclobenzaprine was substituted for gabapentin. She was discharged home with VNA services. Time Attestation Discharge Coordination Time (in mins): 35 Quality: Safe Use of Opioids Does Pt have an Active Cancer Diagnosis on the Problem List?: No Quality: Stroke Does the patient have a stroke diagnosis?: No Physical Exam Vital Signs: Vital Signs: Last Vital Signs Temp 98.3 F 10/18/24 15:42 Pulse 66 10/18/24 15:42 Resp 20 10/18/24 15:42 BP 129/56 L 10/18/24 15:42 Pulse Ox 94 10/18/24 15:42 O2 Del Method Room Air 10/18/24 15:42 BMI result Body Mass Index 30.5 Gen: in no acute distress HEENT: sclera anicteric, moist mucus membranes Neck: supple Lungs: clear to auscultation bilaterally Heart: regular rate and rhythm, no murmurs Abd: soft, non-tender, non-distended Ext: no edema Skin: warm/well-perfused Neuro: alert and oriented x3, mild expressive aphasia Psych: appropriate affect DS: Data Data Completed and Pending Completed studies during hospitalization [Text1]: Laboratory Results WBC 5.1 X10*3/uL (4.8-10.8) 10/18/24 05:29 RBC 3.56 X10*6/uL (4.20-5.50) L 10/18/24 05:29 Hgb 11.7 g/dl (12.0-16.0) L 10/18/24 05:29 Hct 35.4 % (37.0-47.0) L 10/18/24 05:29 MCV 99.4 fL (80.0-98.0) H 10/18/24 05:29 MCH 32.9 pg (27.0-33.0) 10/18/24 05:29 MCHC 33.1 g/dl (31.0-35.0) 10/18/24 05:29 RDW 12.5 % (11.0-16.0) 10/18/24 05:29 Plt Count 181 X10*3/uL (160-400) 10/18/24 05:29 MPV 9.7 fL (9.4-12.3) 10/18/24 05:29 Immature Gran % (Auto) 0.2 % (0.0-0.4) 10/18/24 05:29 Neut % (Auto) 50.9 % (45-73) 10/18/24 05:29 Lymph % (Auto) 38.2 % (20-40) 10/18/24 05:29 [place] % (Auto) 7.5 % (2-11) 10/18/24 05: Eos % (Auto) 2.8 % (0-4) 10/18/24 05:29 Baso % (Auto) 0.4 % (0-2) 10/18/24 05:29 Lymph # (Auto) 1.9 X10*3/uL (1.2-4.9) 10/18/24 05:29 [place] # (Auto) 0.4 X10*3/uL (0.1-1.2) 10/18/24 05:29 Eos # (Auto) 0.1 X10*3/uL (0.0-0.4) 10/18/24 05:29 Baso # (Auto) 0.0 X10*3/uL (0.0-0.2) 10/18/24 05:29 Abs Immat Gran (auto) 0.01 X10*3/uL (0.00-0.03) 10/18/24 05:29 Absolute Neuts (auto) 2.6 x10*3/uL (2.0-8.3) 10/18/24 05:29 Absolute Nucleated RBC 0.000 X10*3/uL (0.0-0.012) 10/18/24 05: Nucleated RBC % (auto) 0.0 /100WBC (0.0-0.2) 10/18/24 05:29 PT 10.4 SEC (10.9-12.4) L 10/17/24 17:00 INR 0.9 (0.9-1.1) 10/17/24 17:00 APTT 30.7 SEC (26.0-36.8) 10/17/24 17:00 Sodium 140 mmol/L (135-145) 10/18/24 05:29 Potassium 4.3 mmol/L (3.3-5.1) 10/18/24 05:29 Chloride 110 mmol/L (96-108) H 10/18/24 05:29 Carbon Dioxide 25 mmol/L (22-29) 10/18/24 05:29 Anion Gap 9 (12-20) L 10/18/24 05:29 BUN 15 mg/dL (9-16) 10/18/24 05:29 Creatinine 0.86 mg/dL (0.5-1.4) 10/18/24 05:29 Estim Creat Clear Calc 44.6 10/18/24 05:29 Estimated GFR > 60 10/18/24 05:29 POC Glucose 142 mg/dL (60-115) H 10/17/24 16:11 Random Glucose 84 mg/dL (60-115) 10/18/24 05:29 Calcium 8.2 mg/dL (8.4-10.2) L D 10/18/24 05:29 Total Bilirubin 0.3 mg/dL (0.0-1.0) 10/18/24 05:29 Direct Bilirubin 0.1 mg/dL (0.0-0.5) 10/17/24 17:00 AST 43 U/L (5-31) H 10/18/24 05:29 ALT 20 U/L (0-31) 10/18/24 05:29 Alkaline Phosphatase 80 U/L (39-117) 10/18/24 05:29 Troponin I High Sens < 2.7 ng/L (<3.5-17.0) 10/17/24 17:00 Total Protein 6.9 g/dL (6.5-8.0) 10/18/24 05:29 Albumin 3.5 g/dL (3.5-5.0) 10/18/24 05:29 Triglycerides 53 mg/dL (<150) 10/17/24 17:00 Cholesterol 168 mg/dL (<200) 10/17/24 17:00 LDL Cholesterol, Calc 88 mg/dL (<100) 10/17/24 17:00 HDL Cholesterol 70 mg/dL (>40) 10/17/24 17:00 Urine Color Yellow 10/17/24 17:03 Urine Appearance Clear 10/17/24 17:03 Urine pH 7.5 (5.0-9.0) 10/17/24 17:03 Ur Specific [place] 1.010 (1.005-1.025) 10/17/24 17:03 Urine Protein Negative mg/dL (Neg-Trace) 10/17/24 17:03 Urine Glucose (UA) Negative mg/dL (Negative) 10/17/24 17:03 Urine Ketones Negative mg/dL (Negative) 10/17/24 17:03 Urine Blood Negative (Negative) 10/17/24 17:03 Urine Nitrite Negative (Negative) 10/17/24 17:03 Ur Leukocyte Esterase Negative (Negative) 10/17/24 17:03 Influenza Type A (PCR) NEGATIVE (Negative) 10/17/24 16:56 Influenza Type B (PCR) NEGATIVE (Negative) 10/17/24 16:56 RSV RNA Qual (PCR) NEGATIVE (Negative) 10/17/24 16:56 SARS-CoV-2 RNA (RT-PCR) NEGATIVE (Negative) 10/17/24 16:[address] 10/18/24 14:40 IMPRESSION: Multilevel cervical spondylosis resulting in grade 1 anterolisthesis C3-4 without gross acute fracture.. Questionable small 5 mm diverticulum, 7 o'clock position upper trachea. Fleischner guidelines were followed. Electronically signed by: Nba Waite MD 10/18/2024 03:35 PM [facility] [place] brain 10/17/24 No acute abnormality of the brain. CTA head/neck 10/17/24 1. Patent head and neck CTA. 2. 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 CT head 10/17/24 1. No acute findings Discharge Plan Discharge Anticipated Discharge Date/Time: 10/18/24 15:54 Patient Disposition: Home Health Service Discharge Diagnosis: aphasia, likely TIA Referrals: Jacob Vale MD [Primary Care Provider] - 1 Week Tammy Gardner MD [Physician] - 1 Month Discharge Medications: New cyclobenzaprine 10 mg Tablet 10 mg PO BEDTIME Qty: 30 0RF aspirin 81 mg Tablet,Chewable 81 mg PO DAILY Qty: 30 0RF meclizine 25 mg Tablet 25 mg PO BEDTIME PRN (Reason: vertigo) Qty: 30 0RF Continued nifedipine 60 mg tablet extended release 60 mg PO DAILY Qty: 90 0RF lamotrigine 25 mg tablet 50 mg PO DAILY Qty: 60 0RF Rx Instructions: Taken together with Lamotrigine 200 mg for a total of 250 mg daily dose memantine 10 mg tablet 20 mg PO DAILY pantoprazole 40 mg tablet,delayed release (DR/EC) 40 mg PO DAILY@0630 venlafaxine 225 mg tablet extended release 24hr 225 mg PO DAILY atorvastatin 80 mg Tablet 80 mg PO DAILY buspirone 10 mg Tablet 20 mg PO BID bupropion HCl 150 mg tablet extended release 24 hr 150 mg PO DAILY lamotrigine 200 mg tablet 200 mg PO DAILY fluticasone propionate 50 mcg/actuation spray,suspension 1 spray intranasal DAILY PRN (Reason: Nasal Congestion) Rx Instructions: administer into each nostril albuterol sulfate 90 mcg/actuation HFA aerosol inhaler 2 puff inhalation Q4-6H PRN (Reason: Shortness Of Breath Or Wheezing) Vraylar 3 mg capsule 3 mg PO DAILY famotidine 20 mg tablet 40 mg PO DAILY PRN (Reason: Acid Reflux) ibandronate 150 mg tablet 150 mg PO Q28D Discharge Orders: Discharge Order (Routine); Ordered 10/18/24 Ordered By: Landy Wilkinson Diet: Advance to usual diet Activity on Discharge: As tolerated Stand Alone Forms: Patient Portal Discharge page Print Language: Greenlandic Care Plan Goals: recovery of speech Health Concerns: aphasia, likely TIA but also possibly due to gabapentin vertigo Plan of Treatment: continue atorvastatin 80 mg daily start aspirin 81 mg daily stop gabapentin for now; consider restarting with primary care doctor at lower dose take cyclobenzaprine 10 mg at bedtime for neck pain take meclizine 25 mg at bedtime for vertigo home with VNA services including speech therapy Assessment: See Discharge Summary.
--- NOTE | 2024-10-18 15:59 | MHC.SP.ADU ---
Referring provider: Landy Wilkinson Reason for Referral: Aphasia Type of Treatment: 53057 Assessment of Aphasia Date of Plan of Treatment: 10/18/24 Onset of Symptoms/Illness: 10/18/24 Date Treatment Started: 10/18/24 Medical Diagnosis: Aphasia, dysarthria Primary Speech Language Diagnosis: F80.2 Mixed receptive-expressive language disorder Secondary Speech Language Diagnosis: R47.1 Dysarthria History Neurologist note: 79-year-old female with bipolar disorder, GERD with esophagitis, dementia, anxiety, depression, hypercholesterolemia, hypertension who presented to the emergency department for evaluation of possible stroke. Yesterday evening she was not feeling well was having decreased appetite and not able to express exactly what she was feeling. This morning at approximately 10:00 she felt like she was off balance and needed help walking particularly when going up the stairs. At around 15:15 she developed difficulty with word finding and was slurring her words. Patient also reports at some point today she was experiencing double vision this has since subsided. Recently started on gabapentin 300 mg t.i.d. last took a dose this morning. Denies fevers, chills, chest pain, shortness of breath, headache, vision changes, dizziness, weakness, nausea, vomiting, abdominal pain. MRI brain negative, CTA negative . incidental 2mm NATASHA aneurysm. All Sx resolved in 5-6 hrs. No previous stroke or TIA. She has been getting brief vertiginous spells that can make her fall. Has a noise in right ear. Medical History: Other: Medication List: Recent Hospitalizations: Respiratory Needs: Room Air Patient Orientation: Alert & Oriented x 4 Social History: Employment Status: Highest level of education obtained: Current Living Situation: Assistive Devices in use: Comment: Past Speech Language Therapy: Other Therapies Seen in Current Calendar Year: Other: Swallowing History: Dysphagia Specific: Comments: Pre-eval Risk for Aspiration: Neurological Condition Reduced Cognition Pre-evaluation Dietary Consistencies: Pre-eval Liquid Intake: Pre-eval Medication Intake: Reported Speech, Language, Cognition difficulties: Understanding Memory Cognition Speaking Comments: Pt daughter and son at bedside, noting pt has exhibited cognitive/linguistic changes over the course of several months. Pt had lived in [place] but returned to [place] in June after having several falls. Pt endorsed experiencing increased difficulty remembering things and family reported pt is currently on medication to treat bipolar disorder and dementia. Pt and family shared that pt has been exhibiting increased emotional lability unexpectedly. Mild fasciculations of lips and jaw observed in absence of speaking. Mild dysarthria of connected speech characterized by imprecise articulation, slurred syllables and intermittent dysfluency. COMMUNICATIONS SCIENTIST provided education on aphasia, anomia, dysarthria and behaviors associated with neurological changes/dementia. Pt and family expressed appreciation for information. COMMUNICATIONS SCIENTIST recc direct intervention to implement differential diagnosis in determining most appropriate treatment targets, compensatory strategies and caregiver training in supporting pt functional communication to promote maintaining satisfying quality of life. Pt observed to enjoy socializing and communicating; pt, her son and her daughter in agreement with proposed POC. Quality of Life: Patient Stated Goal of Speech-Language Therapy: Assessment Speech Production: Clinical Impression: Observations: Informal Voice Assessment: Voice Loudness: Limited Variation Voice Nasal Resonance: Normal Voice Oral Resonance: Normal Voice Phonatory-based Quality: Hoarse Voice Pitch: Mildly Low Voice Other Observations: Clinical Impression: Intact Clinicial Observations: Tests of Speech & Lang Adults: BDAE Clinical Impression: Impaired Observations: Aphasia Severity Rating Scale of BDAE: Articulatory Agility: Level 2 - conversation about familiar subjects is possible with help from the listener, there are frequent failures to convey the idea, but the pt shares the burden of communication Phrase Length: Level 3 - pt can discuss almost all everyday problems with little or no assistance, reduction of speech and/or comprehension, however, makes conversation about certain material difficult or impossible Word Finding: Level 1 - all communication is through fragmentary expression; great need for inference, questioning, and guessing by the listener. The range of information that can be exchanged is limited, and the listener carries the burden of communication Auditory Comprehension: Level 2 conversation about familiar subjects is possible with help from the listener, pt shares the burden of communication but experiences frequent failures in understanding Pt possesses relative strengths in attention span, use of humor, ability to recognize when she needs assistance, asking others for clarification or help, and restating her intended message when communication breakdowns occur. Pt remains pleasant but expressed her frustration and worry with changing communication, noting these challenges are upsetting. Pt would benefit from direct intervention: COMMUNICATIONS SCIENTIST findings and recommendations reviewed with pt and family. Impressions and Recommendations Summary: Impact on Daily Function/Activity Limitations: Daily Activities: Moderate Interpersonal Interactions: Moderate Education: Employment: Community: Moderate Prognosis for Improvement: Good Comment: Recommendation for Speech Therapy: Speech Therapy through VNA or Outpatient COMMUNICATIONS SCIENTIST Patient Education: Completed: Yes Patient/Caregiver Education: Family/Caregivers expressed agreement with goals and treatment plan Comments/Barriers to Learning: Grocery Bagger Clinican/Clinical Fellow: No Supervisory Statement: N/A Speech Language Pathologist: Georgie Sosa M.S., [facility]-COMMUNICATIONS SCIENTIST
[2024-10-18 16:26] LABS: Erythrocyte Sedimentation Rate 14 MM/HR (0-20)
[2024-10-19 14:56] LABS: Prothrombin Time Whole Bld POC 12.7 sec (11.1-13.5); ~PT, ~INR - Anti Coag Clinic 1.1 (0.9-1.1)
== END 2024-10-18 16:57 | disposition home health service (06) | DRG 69 ==
LOC: HO.ED 18:21 → HO.EDOVER 22:53 → HO.IMC 10-18 07:42
PROVIDERS: Physician Assistant; Admitting Provider Physician Assistant; Emergency Provider Emergency Medicine Emergency Medical Services; PCP Internal Medicine; Visit Provider Family Medicine
DX: G45.9 Transient cerebral ischemic attack, unspecified (principal); R47.01 Aphasia; R27.0 Ataxia, unspecified; F03.90 Unspecified dementia, unspecified severity, without behavioral disturbance, psychotic disturbance, mood disturbance, and anxiety; Z20.822 Contact with and (suspected) exposure to COVID-19; K21.00 Gastro-esophageal reflux disease with esophagitis, without bleeding; E78.5 Hyperlipidemia, unspecified; T42.6X5A Adverse effect of other antiepileptic and sedative-hypnotic drugs, initial encounter; I10 Essential (primary) hypertension; M47.812 Spondylosis without myelopathy or radiculopathy, cervical region; H81.4 Vertigo of central origin; Z79.51 Long term (current) use of inhaled steroids; Z79.899 Other long term (current) drug therapy
CPT/HCPCS: 0241U; 36415; 70450; 70496; 70498; 70551; 71045; 72125; 80048; 80053; 80061; 80076; 81003; 82947; 84484; 85025; 85610; 85652; 85730; 93005; 99222; 99285; J1650; J1885; Q9967

== ENCOUNTER → 2024-10-17 15:58 | Outpatient (BNV) | payer OTHER, SELFPAY | PROVIDERS: Admitting Provider Physician Assistant; Emergency Provider Emergency Medicine Emergency Medical Services; PCP Internal Medicine; Visit Provider Internal Medicine | DX: I44.0 Atrioventricular block, first degree (principal) | CPT/HCPCS: 93010 ==

== ENCOUNTER → 2024-10-17 15:58 | Outpatient (BNV) | payer MEDICARE, MEDICAID, SELFPAY | PROVIDERS: Emergency Provider Emergency Medicine Emergency Medical Services; Visit Provider Radiology Diagnostic Radiology | DX: I67.1 Cerebral aneurysm, nonruptured (principal); H53.2 Diplopia; F80.1 Expressive language disorder; R25.9 Unspecified abnormal involuntary movements; R29.810 Facial weakness; R41.82 Altered mental status, unspecified | CPT/HCPCS: 70450; 70496; 70498; 70551; 71045 ==

== ENCOUNTER → 2024-10-17 16:53 | Outpatient (BNV) | payer MEDICARE, SELFPAY | PROVIDERS: Emergency Provider Emergency Medicine Emergency Medical Services; Visit Provider Physician Assistant | DX: R47.01 Aphasia (principal); M54.2 Cervicalgia; G45.9 Transient cerebral ischemic attack, unspecified; T42.6X5A Adverse effect of other antiepileptic and sedative-hypnotic drugs, initial encounter | CPT/HCPCS: 99239; G0180 ==

== ENCOUNTER 2024-10-17 22:48 | Outpatient (BNV) | payer OTHER, SELFPAY | END 2024-10-18 14:40 | PROVIDERS: Admitting Provider Physician Assistant; Emergency Provider Emergency Medicine Emergency Medical Services; PCP Internal Medicine; Visit Provider Radiology Diagnostic Radiology | DX: M43.12 Spondylolisthesis, cervical region (principal) | CPT/HCPCS: 72125 ==

== ENCOUNTER → 2024-10-17 22:48 | Outpatient (BNV) | payer MEDICARE, SELFPAY | PROVIDERS: Admitting Provider Physician Assistant; Emergency Provider Emergency Medicine Emergency Medical Services; PCP Internal Medicine; Visit Provider Psychiatry & Neurology Neurology | DX: R47.01 Aphasia (principal); M54.2 Cervicalgia | CPT/HCPCS: 99222 ==

== ENCOUNTER 2024-10-22 13:13 | Outpatient (REF) | payer OTHER, SELFPAY ==
--- NOTE | ~2024-10-22 | MM_ITS ---
EXAMINATION: DXA BONE DENSITY EXTREMITY HISTORY: Estrogen deficiency TECHNIQUE: [employer] Dual energy absorptiometry (DEXA) of the lumbar spine and distal radius was performed. The hips were not evaluated due to history of bilateral total hip arthroplasty. COMPARISON: There are no prior studies for comparison. FINDINGS: The bone mineral density of the lumbar spine is 1.186 with a T-score of 0.1, and a Z-score of 1.9. The bone mineral density of the distal radius is 0.656 with a T-score of -2.5, and a Z-score of 0.2. MM/XR DEXA appendicular skeleton IMPRESSION: Based on bone mineral density, and according to World Health Organization (WHO) criteria, the diagnosis is consistent with osteoporosis. All bone density values are in grams per centimeter squared (g/cm2). Statistically, 68% of repeat scans fall within 1 SD (+/- 0.010 g/cm2 for AP spine L1-L4) and 1 SD (+/- 0.012 g/cm2 for femur total) [employer] is a trademark of the [employer] [place] for Metabolic Bone Disease, a World Health Organization (WHO) Collaborating Center. Electronically signed by: Donovan Palencia MD 10/25/2024 12:52 PM [facility] [place]
--- OUTSIDE RECORDS SUMMARY | 2024-10-22 13:31 | XMS_ITS | Encounter Summary ---
Author Organization [employer] Address [address] [place] [address] Care Team Providers Care Cooker Helper Name Role Phone Unavailable Primary Care Provider Unavailabl e Reason for Visit * Reason Comments Dental Pain Encounter Details Date Type Department Care Team (Late st Contact Info) Description 10/07/2024 1:00 PM EST Office Visit [facility] ADULT DENTAL [address] [place] [address] Maddie Bejarano DDS [address] [place] [address] Social History Tobacco Use Types Packs/Day Years Used Date Smoking Tobacco: Never Assessed Comments Unknown Sex and Gender Information Value Date Recorded Sex Assigned at Female 10/07/2024 10:37 AM EST Legal Sex Female 10:29 AM EST Gender Identity Female 10/07/2024 10:37 AM EST Sexual Orientation Choose not to disclose 2024 10:37 AM EST documented as of this encounter Progress Notes * Maddie Bejarano DDS - 10/07/2024 1:00 PM EST Dental procedures in this visit [id number] - LIMITED ORAL EVALUATION - PROBLEM FOCUSED (Completed) Service provider: Maddie Bejarano DDS Billing provider: Hal Tobar DDS Patient ID: Brittany Martinez is a 79 y.o. female. Time Out: Date: 10/07/2024 Location: [facility] Tooth: Mandible & tongue Procedure: Exam Verified the above with patient, nurses medical assistants phlebotomists, and provider. Confirmed via patient's chart, intraorally and by radiographs. Machine Umbrella Tipper: not applicable 79 y.o. y/o female presents for limited exam with Dr. Maddie Bejarano DDS Medical history: Reviewed in EHR Vitals: There were no vitals taken for this visit. Allergies: Reviewed in EHR Medications: Reviewed in EHR Radiographs taken: none taken CHIEF COMPLAINT: I cut my lips to weeks ago and I have this on my lips now also I have so much pain on my cheeks and tongue. This started 2 week ago. Discussion: During visit clinical examination was done. Upon evaluation it was noted 2mm lesion on the lower right extraoral corner of the lip, Large erythematous lesion with mild white lesion bilateral on the buccal cheek of the retro molar area, brown lesion noticed on the left cheek with mild lesion on lower right border of the tongue. Pt was asked if this is a recurrent lesion present. Pt stated that it comes and goes and normally dont last and it goes away but this time it hasn't and it just gotten bigger. PT was informed that we would advised to be evaluated for her primary Doctor. Also, we would be prescribing Magic mouthwash and advised to do rinse to see and to come back on next Wednesdays for a consult/follow up with Dr. Quinn. PT agreed & understood. RX: magic mouthwash (lidocaine, diphenhydrAMINE, Maalox 1:1:1) Swish and spit 15 mL every 4 (four) hours if needed for mucositis., Starting [place] 10/07/2024, Normal [place]: follow up Provider: Dr. Maddie Bejarano DDS Dental Supervisor Litharge: Nghia Belcher Attending: Dr. Tobar * Hal Tobar DDS - 10/07/2024 1:00 PM EST Reviewed and signed. documented in this encounter Plan of Treatment Scheduled Orders Name Type Priority Associated Diagnoses Orde r Schedule CONSULTATION - DIAGNOSTIC SERVICE PROVIDED BY DENTIST OR PHYSICIAN OTHER THAN REQUESTING DENTIST OR PHYSICIAN Dental Routine 1 Occurrenc es starting 10/07/2024 documented as of this encounter Procedures Procedure Name Priority Date/Time Associated Diagnosis Comments LIMITED ORAL EVALUATION - PROBLEM FOCUSED Routine 10/07/2024 1:00 PM EST documented in this encounter Visit Diagnoses Not on filedocumented in this encounter
--- OUTSIDE RECORDS SUMMARY | 2024-10-22 13:31 | XMS_ITS | Clinical Summary ---
Author Organization [employer] Address [address] [place] [address] Care Team Providers Care Blood Bank Technician Name Role Phone Unavailable Primary Care Provider Unavailabl e Allergies No known active allergies Medications buPROPion XL (Wellbutrin XL) 150 MG 24 hr tablet 4 Active Vraylar 3 MG capsule TAKE 1 CAPSULE BY MOUTH DAILY FOR BIPOLAR DEPRESSION 4 Active doxepin (SINEquan) 10 MG capsule 4 Active gabapentin (Neurontin) 300 MG capsule Take 1 capsule by mouth every 6 (six) hours during the day. 5 Active lamoTRIgine (LaMICtal) 25 MG tablet TAKE 2 TABLETS BY MOUTH ONCE DAILY. TAKE TOGETHER WITH 200 MG FOR TOTAL DOSE OF 250 MG DAILY 4 Active memantine (Namenda) 10 MG tablet Take 1 tablet by mouth 2 times daily. 4 Active NIFEdipine CC (Adalat CC) 60 MG 24 hr tablet Take 1 tablet by mouth Once per day. 5 Active ALPRAZolam (Xanax) 0.25 MG tablet Take 0.25 mg by mouth if needed at bedtime for anxiety. Active magic mouthwash (lidocaine, diphenhydrAMINE , Maalox 1:1:1) Swish and spit 15 mL every 4 (four) hours if needed for mucositis. 1 each 5 Active Encounters Date Type Department Care Team Description 10/07/2024 1:00 PM EST Office Visit [facility] ADULT D[facility] [address] [place] [address] Maddie Bejarano DDS from Last 3 Months Social History Tobacco Use Types Packs/Day Years Used Date Smoking Tobacco: Never Assessed Comments Unknown Sex and Gender Information Value Date Recorded Sex Assigned at Female 10/07/2024 10:37 AM EST Legal Sex Female 10:29 AM EST Gender Identity Female 10/07/2024 10:37 AM EST Sexual Orientation Choose not to disclose 2024 10:37 AM EST Plan of Treatment Health Maintenance Due Date Last Done Comments Dental Oral Exam 1945 Dental Prophylaxis 1945 Dental X-Ray: Bitewings 1945 Dental X-Ray: Full Mouth 1945 Depression Screening 1945 SDOH Screening 1945 Alcohol/Substance Use Screening 1957 Tobacco Screening 1957 Hepatitis C Screening 1963 DTaP/Tdap/Td Vaccines (1 - Tdap) 01/05/1964 Pneumococcal Vaccine: 50+ Ye ars (1 of 1 - PCV) 1995 Zoster Vaccines (1 of 2) 1995 RSV Patients and Pa tients Aged 60 years or older (1 - 1-dose 75+ series) 01/05/2020 COVID-19 Vaccine ( - 2023-2 5 season) 2024 Influenza Vaccine (#1) 2024 HIB Vaccines Aged Out No longer eligi ble based on patient's age to complete this topic HPV Vaccines Aged Out No longer eligi ble based on patient's age to complete this topic Hepatitis A Vaccines Aged Out No long er eligible based on patient's age to complete this topic Hepatitis B Vaccines Aged Out No long er eligible based on patient's age to complete this topic IPV Vaccines Aged Out No longer eligi ble based on patient's age to complete this topic Meningococcal Vaccine Aged Out No corazon carolyn eligible based on patient's age to complete this topic RSV under 20 months Aged Out No longe r eligible based on patient's age to complete this topic Rotavirus Vaccines Aged Out No longer eligible based on patient's age to complete this topic Procedures Procedure Name Priority Date/Time Associated Diagnosis Comments LIMITED ORAL EVALUATION - PROBLEM FOCUSED Routine 10/07/2024 1:00 PM EST from Last 3 Months Insurance DENTAL - [facility]
== END 2024-10-22 13:14 | disposition home or self-care (01) ==
LOC: HO.MAMMO 13:13
PROVIDERS: PCP Internal Medicine; Visit Provider Internal Medicine
DX: M81.0 Age-related osteoporosis without current pathological fracture (principal); Z78.0 Asymptomatic menopausal state
CPT/HCPCS: 77081

== ENCOUNTER → 2024-10-22 13:30 | Outpatient (BNV) | payer OTHER, SELFPAY | PROVIDERS: PCP Internal Medicine; Visit Provider Radiology Diagnostic Radiology | DX: E28.39 Other primary ovarian failure (principal) | CPT/HCPCS: 77081 ==

== ENCOUNTER 2024-10-29 12:55 | Outpatient (AMB) | payer OTHER, SELFPAY ==
--- NOTE | 2024-10-29 13:19 | A.OFFPC_ITS ---
Vital Signs 3 10/29/24 13:21 Height 4 ft 11 in Weight 149 lb 4 oz BMI 30.1 BP 120/68 Blood Pressure Location Lt brachial Position Sitting Pulse 101 H Pulse Source Pulse Oximeter Temp 97.5 F Temp Source Skin Pulse Oximetry (%) 98 Oxygen Delivery Method Room Air Intake Visit Reasons: TCM [facility] 10/18 CVA Intake Note: Patient is here for hospital discharge and TCM follow up. Patient was discharged from [facility] on 10/18/24. Starting Sheet Tank Operator Required: No Nurse Case Management: Present Accompanied by: Daughter Allergies No Known Allergies Allergy (Verified 10/29/24 13:21) Tobacco use date assessed: 10/29/24 Fall risk assessment: 1 Fall in past year Last assessed Fall Risk: 10/29/24 Dental Screening Dental Screen Date: 10/29/24 Did you have a dental visit in the last 12 months?: Yes Did you have a dental problem in the last 6 months where you did not have access to dental care?: No Was dental information given to patient?: Patient has dentist HPI TCM 2 TCM Information0 Date of Discharge 10/18/24 Discharged From [facility] Interactive Contact Date (Reference documentation from this date) 10/20/24 HPI Comments 2 History of Present Illness0 Details 79 y/o female [facility] Her past medical history significant for bipolar disorder, GERD with esophagitis, dementia, anxiety, depression, hypercholesterolemia, and hypertension. She was admitted at [facility] on 10/17 and discharged home 10/18/24 due to CVA associated with Aphasia. Aphasia has improved - though she had persistent vertigo. No CVA seen on MRI and CTA negative. There was an incidental finding of 2mm NATASHA aneurysm. There was a Concern for TIA versus Gabapentin adverse effect. She is already on a high-intensity statin. Aspirin was added for prevention. She was evaluated by CHIEF COUNSEL and speech therapy while in the hospital. Gabapentin was discontinued in the hospital. She was given prescribed Meclizine For vertigo. For her chronic neck pain, cyclobenzaprine was substituted for Gabapentin. Today c/o left wrist/hand injury - she banged her hand last week against something but does not remember. C/o swelling and pain at the Ulnar joint. [facility] Medical History Overweight (BMI 25.0-29.9) Bipolar 1 disorder GERD without esophagitis Allergic rhinitis Dementia Anxiety Osteoporosis Pure hypercholesterolemia Essential hypertension Depression Arthritis Surgical History History of cataract extraction History of Mabel-en-Y gastric bypass History of arthroplasty of right shoulder History of total hip arthroplasty History of total knee arthroplasty Hx of arthroscopic knee surgery Family History Other FH: mental illness Substance abuse Social History Household Members: Family Housing: House Do you presently have visiting nurse or other home services: No Alcohol intake: never Patient Tobacco Use Status: Former Tobacco user e-Cigarette/Vaping Use: Never Used Second Hand Smoke Exposure: Yes service: No Current occupational status: unemployed Current occupational exposures/hazards: No Cognitive needs: Yes (walker, cane) Hearing needs: No Vision needs: Yes (glasses) Questionnaire PHQ-9 Over the last 2 weeks, how often have you been bothered by any of the following problems? 1. Little interest or pleasure in doing things: more than half the days 2. Feeling down, depressed, or hopeless: several days 3. Trouble falling or staying asleep, or sleeping too much: more than half the days 4. Feeling tired or having little energy: nearly every day 5. Poor appetite or overeating: more than half the days 6. Feeling bad about yourself - or that you are a failure or have let yourself or your family down: not at all 7. Trouble concentrating on things, such as reading the newspaper or watching television: nearly every day 8. Moving or speaking so slowly that other people could have noticed. Or the opposite - being so fidgety or restless that you have been moving around a lot more than usual: not at all 9. Thoughts that you would be better off or of hurting yourself in some way: not at all Total score: 13 Depression Screening Interpretation: Positive Depression Screening Follow-up: Existing condition and In treatment Depression Screening Done: Yes 69140 - PHQ-9 Billing: Yes Source: Developed by Drs. Donovan Fierro, Deepa Bustamante, Nathaniel Lyosn and colleagues, with an educational marquez from [employer]. Thrive Questionnaire Date Thrive assessed: 10/29/24 I am a: Patient What is your living situation today?: I have a place to live, but I am worried about losing it in the future Within the past 12 months, did the food you bought not last and you didn't have the money to get more?: Never true Within the past 12 months, did you worry whether your food would run out before you got money to buy more?: Never true Do you have trouble paying for medicines?: No Do you have trouble getting transportation to medical appointments?: Yes Do you have trouble paying your heating and electricity bill?: No Do you have trouble taking care of your child, family member or friend?: I choose not to answer this question Do you have trouble with day-to-day activities such as bathing, preparing meals, shopping, managing finances, etc.?: Yes Are you currently unemployed and looking for a job?: No Are you interested in more education?: No Currently or been in a relationship where the following occur: No concerns reported THRIVE Score: 2 AUDIT C Alcohol Use Questionnaire (AUDIT-C) 1. How often do you have a drink containing alcohol?: Never 3. How often do you have six or more drinks on one occasion?: Never Total Score: 0 WYATT-7 AMB Questionnaire WYATT-7 Date WYATT - 7 assessed: 10/29/24 Feeling nervous, anxious, or on edge: 0 = Not at all Not being able to stop or control worryin = Not at all Worrying too much about different things: 0 = Not at all Trouble relaxin = Not at all Being so restless that it is hard to sit still: 0 = Not at all Becoming easily annoyed or irritable: 0 = Not at all Feeling afraid as if something awful might happen: 0 = Not at all Total WYATT-7 score (0-4 normal; 5-9 mild; 10-14 moderate; 15-21 severe): 0 Source: Developed by Drs. Donovan Fierro, Deepa Bustamante, Nathaniel Lyons and colleagues, with an educational marquez from [employer]. Review of Systems Const All systems reviewed & are unremarkable except as noted in HPI and below Physical exam (Primary Care) Vital Signs: Last Vital Signs Temp 97.5 F 10/29/24 13:21 Pulse 101 H 10/29/24 13:21 BP 120/68 10/29/24 13:21 Pulse Ox 98 10/29/24 13:21 Oxygen Delivery Method Room Air 10/29/24 13:21 BMI result Body Mass Index 30.1 Tobacco/Smoking Status: Tobacco use Status Tobacco use date assessed 10/29/24 10/29/24 13:28 Patient Tobacco Use Status Former Tobacco user 10/29/24 13:28 e-Cigarette/Vaping Use Never Used 10/29/24 13:28 PHQ-9: PHQ-9 Score PHQ-9: Total score 13 10/29/24 13:48 Depression Screening Interpretation: Positive Depression Screening Follow-up: Existing condition and In treatment Thrive Assessment: Date of Thrive Assessment Date Thrive assessed 10/29/24 10/29/24 13:28 Currently or been in a relationship where the following occur: No concerns reported Const General: cooperative and no acute distress Orientation/consciousness: patient oriented x3 Eyes Pupils: Equal, round and reactive pupils present EOM: EOMs intact bilaterally Resp Effort & Inspection: normal respiratory effort Auscultation: clear to auscultation bilaterally Cardio Heart sounds: S1 normal heart sound present and S2 normal heart sound present Neuro Other: Walks with a walker General: patient oriented x3 and moves all extremities Cranial nerves: Yes Equal, round and reactive pupils present, Yes Midline tongue present, Yes Ability to bilaterally rotate head present and Yes Ability to bilaterally elevate shoulders present Gait exam (Neuro): Assistive device used Motor exam (neuro): 5/5 motor strength present throughout Coordination: [id number] test normal Extrem Left upper extremity: hand Details: normal capillary refill, normal ROM of fingers and swelling Location: of the dorsal hand Elbow/forearm/wrist images: 2 1. Dorsal hand lateral ulna head Mild swelling, bruise erythema TTP. Normal ROM Psych Speech and movement: Normal speech and movement present Coding Level of Care Code TCM Mod MDM <= 14 Days Diagnoses TIA (transient ischemic attack) G45.9 Expressive aphasia R47.01 Contusion of left wrist, initial encounter S60.212A Encounter type: initial encounter Additional Codes PHQ-9 - 37490 - PHQ-9 Billing: Yes ([id number]) Time Spent (min) 20 Assessment & Plan Assessment & Plan (1) TIA (transient ischemic attack): Code(s): G45.9 - Transient cerebral ischemic attack, unspecified Category: Medical Plan: Managed by Neurology Appointment in November (2) Expressive aphasia: Code(s): R47.01 - Aphasia Category: Medical Plan: Managed by Neurology Appointment in November Speech improved. Still having trouble with word finding, but does have Dx of Dementia. (3) Contusion of left wrist: Code(s): S60.212A - Contusion of left wrist, initial encounter Qualifiers: Encounter type: initial encounter Qualified Code(s): S60.212A - Contusion of left wrist, initial encounter Plan: Ordered Orders: Orders 2 XR hand wrist LT Today S60.212A - Contusion of left wrist, initial encounter
[2024-10-29 13:21] VITALS: BP 120/68; PULSE 101; TEMP 36.4; O2SAT 98; BMI 30.1
--- OUTSIDE RECORDS SUMMARY | 2024-10-29 13:32 | XMS_ITS | Clinical Summary ---
Author Organization [employer] Address [address] [place] [address] Care Team Providers Care Choker Hooker Name Role Phone Unavailable Primary Care Provider [...] Description 10/07/2024 1:00 PM EST Office Visit [facility] ADULT D[facility]AL [address] [place] [address] Maddie Bejarano DDS from Last 3 Months [...] from Last 3 Months Insurance DENTAL - [facility] SCO
--- OUTSIDE RECORDS SUMMARY | 2024-10-29 13:32 | XMS_ITS | Encounter Summary ---
Author Organization [employer] Address [address] [place] [address] Care Team Providers Care Wood Planer Name Role Phone Unavailable Primary Care Provider Unavailabl e Reason for Visit * Reason Comments Dental Pain Encounter Details Date Type Department Care Team (Late st Contact Info) Description 10/07/2024 1:00 PM EST Office Visit [facility] ADULT DENTAL [address] [place] [address] Maddie Bejarano DDS [address] [place] [address] Social History Tobacco Use Types Packs/Day Years [...] Time Out: Date: 10/07/2024 Location: [facility] Tooth: Mandible & tongue Procedure: Exam Verified the above with patient, speech language pathologist assistant, and provider. Confirmed via patient's chart, intraorally and by radiographs. Marine Equipment Research Engineer: not applicable 79 y.o. y/o female presents [...] up Provider: Dr. Maddie Bejarano DDS Dental Home Health Care Provider: Nghia Belcher Attending: Dr. Tobar * Hal [...]
== END 2024-10-29 14:06 | disposition home or self-care (01) ==
PROVIDERS: PCP Internal Medicine; Visit Provider Nurse Practitioner Family
DX: G45.9 Transient cerebral ischemic attack, unspecified (principal); R47.01 Aphasia; S60.212A Contusion of left wrist, initial encounter

== ENCOUNTER 2024-10-29 12:55 | Outpatient (REF) | payer OTHER, SELFPAY ==
--- NOTE | ~2024-10-29 | XR_ITS ---
EXAMINATION: XR HAND/WRIST, LEFT CLINICAL INFORMATION: S60.212A - Contusion of left wrist, initial encounter COMPARISON: None available. TECHNIQUE: PA, lateral, and oblique views of the left hand and wrist. FINDINGS: Degenerative changes in the radiocarpal joint, first and second carpometacarpal joints and proximal and distal interphalangeal joints of the digits. No acute cortical disruption or gross malalignment. The scaphoid is intact. Calcifications at the carpal ulnar joint. XR/XR hand wrist LT IMPRESSION: Osteoarthrosis, moderate , involving digits and carpal bones. Electronically signed by: Nba Waite MD 10/29/2024 02:21 PM EST
--- OUTSIDE RECORDS SUMMARY | 2024-10-29 14:19 | XMS_ITS | Clinical Summary ---
Author Organization [employer] Address [address] [place] [address] Care Team Providers Care Cane Flume Watcher Name Role Phone Unavailable Primary Care Provider [...] Description 10/07/2024 1:00 PM EST Office Visit [facility] ADULT DENTAL [address] [place] [address] Maddie Bejarano DDS from Last 3 Months [...] from Last 3 Months Insurance DENTAL - [facility] SCO
--- OUTSIDE RECORDS SUMMARY | 2024-10-29 14:19 | XMS_ITS | Encounter Summary ---
Author Organization [employer] Address [address] [place] [address] Care Team Providers Care Hat Band Attacher Name Role Phone Unavailable Primary Care Provider Unavailabl e Reason for Visit * Reason Comments Dental Pain Encounter Details Date Type Department Care Team (Late st Contact Info) Description 10/07/2024 1:00 PM EST Office Visit [facility] ADULT D[facility]AL [address] [place] [address] Maddie Bejarano DDS [address] [place] [address] Social History Tobacco Use Types Packs/Day Years [...] y.o. female. Time Out: Date: 10/07/2024 Location: [facility] Tooth: Mandible & tongue Procedure: Exam Verified the above with patient, camp assistant, and provider. Confirmed via patient's chart, intraorally and by radiographs. Supervisor Data Processing: not applicable 79 y.o. y/o female presents [...] up Provider: Dr. Maddie Bejarano DDS Dental Format Proofreader: Nghia Belcher Attending: Dr. Tobar * Hal [...]
== END 2024-10-29 12:56 | disposition home or self-care (01) ==
LOC: HO.XRAY 12:55
PROVIDERS: PCP Internal Medicine; Visit Provider Nurse Practitioner Family
DX: S60.212A Contusion of left wrist, initial encounter (principal)
CPT/HCPCS: 73110; 73130

== ENCOUNTER → 2024-10-29 14:02 | Outpatient (BNV) | payer OTHER, SELFPAY | PROVIDERS: PCP Internal Medicine; Visit Provider Radiology Diagnostic Radiology | DX: S60.212A Contusion of left wrist, initial encounter (principal) | CPT/HCPCS: 73110; 73130 ==

== ENCOUNTER 2024-11-15 14:56 | Outpatient (REF) | payer OTHER, SELFPAY ==
--- OUTSIDE RECORDS SUMMARY | 2024-11-15 17:16 | XMS_ITS | Clinical Summary ---
Author Organization [employer] Address [address] [place] [address] Care Team Providers Care Cat Tender Name Role Phone Unavailable Primary Care Provider [...] Description 10/07/2024 1:00 PM EST Office Visit [facility] ADULT DENTAL [address] [place] [address] Maddie Bejarano DDS from Last 3 Months [...] from Last 3 Months Insurance DENTAL - [facility] SCO
== END 2024-11-15 14:57 | disposition home or self-care (01) ==
LOC: HO.MAMMO 14:56
PROVIDERS: PCP Internal Medicine; Visit Provider Internal Medicine
DX: Z12.31 Encounter for screening mammogram for malignant neoplasm of breast (principal)
CPT/HCPCS: 77063; 77067

== ENCOUNTER → 2024-11-15 15:00 | Outpatient (BNV) | payer OTHER, SELFPAY | PROVIDERS: PCP Internal Medicine; Visit Provider Internal Medicine | DX: Z12.31 Encounter for screening mammogram for malignant neoplasm of breast (principal) | CPT/HCPCS: 77063; 77067 ==

== ENCOUNTER 2024-11-29 13:05 | Outpatient (REF) | payer OTHER, SELFPAY ==
[2024-11-29 14:12] LABS: Appearance Urine Cloudy; Color Urine Dark Yellow; Glucose Urine UA Negative (Negative); Leukocyte Esterase Urine Moderate (2+) (Negative); Nitrite Urine Negative (Negative); PH 5.5 (5.0-9.0); Specific Gravity - Urine 1.025 (1.005-1.025); UMIC TRIGGER UACC YES; Urine Blood Negative (Negative); Urine Ketones 15 mg/dL (Negative); Urine Protein 30 (1+) mg/dL (Neg-Trace)
[2024-11-29 14:26] LABS: Bacteria Urine 4+ (None Seen); Calcium Oxalate Crystals Urine Present; UACC Culture Trigger YES; WBC Urine >50 /HPF (0-5)
--- OUTSIDE RECORDS SUMMARY | 2024-11-29 14:49 | XMS_ITS | Clinical Summary ---
Author Organization [employer] Address [address] [place] [address] Care Team Providers Care Content Production Specialist Name Role Phone Unavailable Primary Care Provider [...] Description 10/07/2024 1:00 PM EST Office Visit [facility] CH[facility] ADULT DENTAL [address] [place] [address] Maddie Bejarano DDS from Last 3 Months [...] from Last 3 Months Insurance DENTAL - [facility] SCO
== END 2024-11-29 13:06 | disposition home or self-care (01) ==
LOC: HO.LAB 13:05
PROVIDERS: PCP Internal Medicine; Visit Provider Internal Medicine
DX: Z00.00 Encounter for general adult medical examination without abnormal findings (principal); R30.0 Dysuria
CPT/HCPCS: 81001; 81003; 87086; 87088; 87186

== ENCOUNTER 2024-12-10 14:25 | Outpatient (AMB) | payer MEDICARE, MEDICAID, SELFPAY ==
[2024-12-10 14:27] VITALS: BP 142/78; PULSE 96; O2SAT 97; BMI 28.1
--- NOTE | 2024-12-10 14:27 | MHC.PC.OV ---
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: No Accompanied by: Self / Same As Patient Allergies No Known Allergies Allergy (Verified 12/10/24 14:44) Medication List - Last Reconciled 12/10/24 by Jacob Vale MD albuterol sulfate 90 mcg/actuation 2 puffs inhalation Q4-6H PRN aspirin 81 mg PO DAILY atorvastatin 80 mg PO DAILY bupropion HCl XL 150 mg PO DAILY 90 days buspirone 20 mg PO BID cariprazine (Vraylar) 3 mg PO DAILY 30 days cyclobenzaprine 10 mg PO BEDTIME 90 days famotidine 40 mg (2 x 20 mg) PO DAILY PRN fluticasone propionate 50 mcg/actuation 1 spray intranasal DAILY PRN ibandronate 150 mg PO Q28D lamotrigine 200 mg PO DAILY 30 days lamotrigine 50 mg (2 x 25 mg) PO DAILY meclizine 25 mg PO BEDTIME PRN memantine 20 mg (2 x 10 mg) PO DAILY nifedipine ER 60 mg PO DAILY nitrofurantoin macrocrystal 100 mg PO BID 5 days pantoprazole 40 mg PO DAILY@0630 venlafaxine ER 225 mg PO DAILY Tobacco use date assessed: 12/10/24 Fall risk assessment: 1 Fall in past year Last assessed Fall Risk: 12/10/24 Dental Screening Dental Screen Date: 12/10/24 Did you have a dental visit in the last 12 months?: Yes Did you have a dental problem in the last 6 months where you did not have access to dental care?: No Was dental information given to patient?: Patient has dentist HPI 3 month f/u HPI Details Patient comes in today for her follow up visit for her multiple chronic issues, including HTN, hyperlipidemia, osteoporosis, OA and dementia Patient continues to present with persistent left-sided weakness and dysarthria ever since her hospitalization back in September 2024 when she presented to the ER with left-sided weakness, slurring of speech, double vision and also reportedly some word-finding difficulty There were concerns that she may have had a stroke at the time but her initial head CT and subsequent head and neck CTA as well as MRI of the brain showed no acute abnormalities although there were involutional changes and nonspecific white matter hypodensity seen on her head CT Her brain MRI also revealed (+) scattered foci of T2 hyperintensity within the white matter likely secondary to small-vessel ischemic change and her head and neck CTA revealed (+) 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 It was then thought that her symptoms may also be due to side effects from Gabapentin she was also on Gabapentin 300 mg TID at the time so her Rx was discontinued Her lab workups were mostly normal at the time and patient was eventually discharged home with a possible diagnosis of TIA versus medication side effects from Gabapentin She was started on low-dose Aspirin 81 mg QD was advised to follow-up with her PCP EN as well as seek referral to speech therapy to help with her dysarthria She has been referred to neurology at her last visit here in August 2024 primarily for her dementia at the time She is now scheduled to be seen by neurology in about a week on 12/20/2024 at 12:30 pm and they plan to also have neurology see her for her more recent symptoms of persistent left-sided weakness as well as her dysarthria Patient currently continues to present with persistent left-sided weakness and dysarthria and she is also seeking a referral to speech therapy for her slurring of speech Patient is also requesting for physical therapy referral to help with her unsteadiness and her left-sided weakness She denies any headaches or dizziness but continues to feel very unsteady because of her left-sided weakness She also has some painful mouth sores lately, likely a result of her ill-fitting dentures States that she has not worn her dentures in a while now and was more recently prescribed some Magic Mouthwash by her dentist, which she states helped, but she ran out of her Rx 1 to 2 days ago and is requesting for a refill on this Denies any chest pains, no shortness of breath No nausea/vomiting, no abdominal pain No change in bowel habits noted She reports experiencing increasing pain in both of her hips over the past few weeks - she does have a Hx of total hip arthroplasty bilaterally when she was still residing in [place], with her left hip surgery done more recently in 2022 Needs a couple of her Rx refilled States that she is scheduled to see her therapist/psychiatrist sometime next week for follow up Would also like to request for allergy testing as she has been experiencing some recurrent allergy symptoms (nasal congestion, runny nose, sneezing) lately - thinks at this time that this is mostly due to spring being around the corner [facility] Medical History Dysarthria Ataxia Overweight (BMI 25.0-29.9) Bipolar 1 disorder GERD without esophagitis Allergic rhinitis Dementia Anxiety Osteoporosis Pure hypercholesterolemia Essential hypertension Depression Arthritis Surgical History History of cataract extraction History of Mabel-en-Y gastric bypass History of arthroplasty of right shoulder History of total hip arthroplasty History of total knee arthroplasty Hx of arthroscopic knee surgery Family History Other FH: mental illness Substance abuse Social History Household Members: Family Housing: House Do you presently have visiting nurse or other home services: No Alcohol intake: never Patient Tobacco Use Status: Former Tobacco user e-Cigarette/Vaping Use: Never Used Second Hand Smoke Exposure: Yes service: No Current occupational status: unemployed Current occupational exposures/hazards: No Cognitive needs: Yes (walker, cane) Hearing needs: No Vision needs: Yes (glasses) Questionnaire PHQ-9 Over the last 2 weeks, how often have you been bothered by any of the following problems? 1. Little interest or pleasure in doing things: more than half the days 2. Feeling down, depressed, or hopeless: several days 3. Trouble falling or staying asleep, or sleeping too much: more than half the days 4. Feeling tired or having little energy: nearly every day 5. Poor appetite or overeating: more than half the days 6. Feeling bad about yourself - or that you are a failure or have let yourself or your family down: not at all 7. Trouble concentrating on things, such as reading the newspaper or watching television: nearly every day 8. Moving or speaking so slowly that other people could have noticed. Or the opposite - being so fidgety or restless that you have been moving around a lot more than usual: not at all 9. Thoughts that you would be better off or of hurting yourself in some way: not at all Total score: 13 Depression Screening Interpretation: Positive Depression Screening Follow-up: Existing condition and In treatment Depression Screening Done: Yes 70008 - PHQ-9 Billing: Yes Source: Developed by Drs. Donovan Fierro, Deepa Bustamante, Nathaniel Lyons and colleagues, with an educational marquez from [employer]. Thrive Questionnaire Date Thrive assessed: 12/10/24 I am a: Patient What is your living situation today?: I have a place to live, but I am worried about losing it in the future Within the past 12 months, did the food you bought not last and you didn't have the money to get more?: Never true Within the past 12 months, did you worry whether your food would run out before you got money to buy more?: Never true Do you have trouble paying for medicines?: No Do you have trouble getting transportation to medical appointments?: Yes Do you have trouble paying your heating and electricity bill?: No Do you have trouble taking care of your child, family member or friend?: I choose not to answer this question Do you have trouble with day-to-day activities such as bathing, preparing meals, shopping, managing finances, etc.?: Yes Are you currently unemployed and looking for a job?: No Are you interested in more education?: No Currently or been in a relationship where the following occur: No concerns reported THRIVE Score: 2 AUDIT C Alcohol Use Questionnaire (AUDIT-C) 1. How often do you have a drink containing alcohol?: Never 3. How often do you have six or more drinks on one occasion?: Never Total Score: 0 Score Reviewed/Action Taken: Yes WYATT-7 AMB Questionnaire WYATT-7 Date WYATT - 7 assessed: 12/10/24 Feeling nervous, anxious, or on edge: 0 = Not at all Not being able to stop or control worryin = Not at all Worrying too much about different things: 0 = Not at all Trouble relaxin = Not at all Being so restless that it is hard to sit still: 0 = Not at all Becoming easily annoyed or irritable: 0 = Not at all Feeling afraid as if something awful might happen: 0 = Not at all Total WYATT-7 score (0-4 normal; 5-9 mild; 10-14 moderate; 15-21 severe): 0 Source: Developed by Drs. Donovan Fierro, Deepa Bustamante, Nathaniel Lyons and colleagues, with an educational marquez from [employer]. Review of Systems Const Denies chills, Reports fatigue, Denies fever(s), Reports frequent falls, Denies headache(s) and Reports weakness (especially left-sided persistent weakness) ENT Details: (+) painful recurrent mouth sores lately Denies dysphagia, Denies dizziness, Denies otalgia, Denies headache(s), Denies nasal congestion, Reports neck pain (on the R side at the base of the skull), Denies odynophagia and Denies sore throat Card Denies chest pain, Reports syncope, Denies irregular heart rhythm, Denies palpitations and Denies dyspnea Resp Denies chest congestion, Denies cough and Denies dyspnea GI Denies abdominal pain, Reports hematochezia, Denies constipation, Denies dysphagia, Denies heartburn, Denies diarrhea, Denies nausea, Denies odynophagia and Denies vomiting Denies hematuria, Denies urinary frequency, Denies dysuria and Denies urinary urgency Musc Reports back pain (over the lower back), Reports arthralgias (over the left hip and left knee - increasing lately), Denies joint swelling, Denies muscle weakness and Reports neck pain (on the R side at the base of the skull) Skin/Breast Denies rash Neuro Reports Abnormal speech present, Denies dizziness, Reports syncope, Reports frequent falls, Denies headache(s), Reports memory loss (slowly progressing over the past few years), Denies paresthesias and Reports weakness (especially left-sided persistent weakness) Psych Reports anxiety, Reports depression and Reports memory loss (slowly progressing over the past few years) Endo Reports fatigue and Denies palpitations Teja/Lymph Denies easy bruising Physical exam (Primary Care) Vital Signs: Last Vital Signs Pulse 96 12/10/24 14:27 BP 142/78 H 12/10/24 14:27 Pulse Ox 97 12/10/24 14:27 Oxygen Delivery Method Room Air 12/10/24 14:27 BMI result Body Mass Index 28.1 Tobacco/Smoking Status: Tobacco use Status Tobacco use date assessed 12/10/24 12/10/24 14:30 Patient Tobacco Use Status Former Tobacco user 12/10/24 14:30 e-Cigarette/Vaping Use Never Used 12/10/24 14:30 PHQ-9: PHQ-9 Score PHQ-9: Total score 13 12/11/24 05:09 Depression Screening Interpretation: Positive Depression Screening Follow-up: Existing condition and In treatment Thrive Assessment: Date of Thrive Assessment Date Thrive assessed 12/10/24 12/10/24 14:30 Currently or been in a relationship where the following occur: No concerns reported Const General: no acute distress and alert Orientation/consciousness: patient oriented x3 HENMT Other: (+) small sores over the oral mucosa at the floor of the mouth on the left side Ears: TM's normal bilaterally and EAC's normal Face and sinus: Yes face symmetric Throat: Yes posterior oropharynx normal and Yes tonsils normal (no TP congestion) Eyes Pupils: Equal, round and reactive pupils present EOM: EOMs intact bilaterally Neck Neck: Yes supple and No lymphadenopathy Thyroid: Thyroid normal Resp Auscultation: clear to auscultation bilaterally, no rales and no wheezes Cardio Rate: regular rate Rhythm: regular rhythm Heart sounds: no murmurs GI Palpation (GI): Soft to palpation and nontender Auscultation: normal bowel sounds General: Yes no CVA tenderness Back/Spine/Pelvis Back: no CVA tenderness Cervical Spine: Cervical spine tenderness Thoracic/Lumbar Spine: lumbar spinal tenderness Skin Rashes: no rashes Neuro Other: (+) left-sided hemiparesis involving both the left upper and left lower extremities General: patient oriented x3 Cranial nerves: Yes Equal, round and reactive pupils present, Yes Bilaterally intact EOM present and Yes Midline tongue present Speech: Abnormal speech present slurred Extrem General: Yes no clubbing, cyanosis or edema Right lower extremity: hip/thigh Details: tenderness Location: of the hip Left lower extremity: hip/thigh Details: tenderness Location: of the hip and knee Details: tenderness Location: of the popliteal fossa; no swelling Coding Level of Care Code Est Pt Level 5 (83851) Complex EM visit Add On G2211 Diagnoses Left-sided weakness R53.1 Dysarthria R47.1 Essential hypertension I10 Pure hypercholesterolemia E78.00 Dementia without behavioral disturbance, psychotic disturbance, mood disturbance, or anxiety, unspecified dementia severity, unspecified dementia type F03.90 Dementia type: unspecified type Dementia severity: unspecified severity Dementia behavioral or psychological symptom: without behavioral, psychotic, or mood disturbance or anxiety Osteoporosis without current pathological fracture, unspecified osteoporosis type M81.0 Osteoporosis type: unspecified Presence of current pathological fracture: without current pathological fracture GERD without esophagitis K21.9 Allergic rhinitis, unspecified seasonality, unspecified trigger J30.9 Allergic rhinitis trigger: unspecified Allergic rhinitis seasonality: unspecified Mouth sores K13.79 Neck pain M54.2 Midline low back pain without sciatica, unspecified chronicity M54.50 Chronicity: unspecified Back pain laterality: midline Sciatica presence: without sciatica Bilateral primary osteoarthritis of hip M16.0 Left knee pain, unspecified chronicity M25.562 Chronicity: unspecified Anxiety F41.9 Bipolar 1 disorder F31.9 Overweight (BMI 25.0-29.9) E66.3 Additional Codes PHQ-9 - 89994 - PHQ-9 Billing: Yes ([id number]) Time Spent (min) 43 Assessment & Plan Assessment & Plan (1) Left-sided weakness: Code(s): R53.1 - Weakness Category: Medical Plan: Patient apparently suffered some sort of neurologic event a couple of months ago in late September 2024 although her brain imaging studies (including CT, CTA and MRI) all showed only non-specific changes like involutional changes and nonspecific white matter hypodensity on her head CT and scattered foci of T2 hyperintensity within the white matter likely secondary to small-vessel ischemic change on her brain MRI 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 seen on her head and neck CT but there were no acute changes to indicate [employer]PER[employer] hemorrhage or infarct to help explain her recent left-sided hemiparesis and dysarthria Of note, patient reportedly has had a few syncopal episodes, was falling a lot and was getting progressively forgetful while she was still residing in [place] last year that prompted her children to get her to move here to [facility] where they can better take care of her and watch her - it is unclear if these syncopal episodes were actually precursors to her recent [employer]PER[employer] event and were also some form of TIAs She has been referred to neurology previously and is scheduled to be seen in about a week on 12/20/2024 She has also been previously referred to cardiology for further work ups of her recurrent syncopal episodes and she is scheduled to be seen sometime next month She also had an echocardiogram done a couple of months ago that came out mostly normal - the left ventricular systolic function is normal. The calculated ejection fraction is 59% by biplane method and no obvious valvular pathology was seen on this study. There is however, (+) moderate plaque seen in the sino tubular ridge on her recent echo Will refer her as well to physical therapy for further evaluation and management of her left-sided hemiparesis and gait training (2) Dysarthria: Code(s): R47.1 - Dysarthria and anarthria Category: Medical Plan: Patient also has had persistent dysarthria/slurring of speech since her hospital admission a couple of months ago Will refer her to Speech and Hearing for further evaluation and management/speech therapy (3) Essential hypertension: Code(s): I10 - Essential (primary) hypertension Category: Medical Plan: Reinforced low sodium diet - goal is systolic BP of at least 130 to 140 mm or less Continue Nifedipine ER 60 mg QD (4) Pure hypercholesterolemia: Code(s): E78.00 - Pure hypercholesterolemia, unspecified Category: Medical Plan: Reinforced low cholesterol diet Her cholesterol levels were acceptable, with her total cholesterol at 168 mg/dl and LDL cholesterol at 88 mg/dl when they were last checked a couple of months ago Continue Atorvastatin 80 mg QD (5) Dementia: Code(s): F03.90 - Unspecified dementia, unspecified severity, without behavioral disturbance, psychotic disturbance, mood disturbance, and anxiety Category: Medical Qualifiers: Dementia type: unspecified type Dementia severity: unspecified severity Dementia behavioral or psychological symptom: without behavioral, psychotic, or mood disturbance or anxiety Qualified Code(s): F03.90 - Unspecified dementia, unspecified severity, without behavioral disturbance, psychotic disturbance, mood disturbance, and anxiety Plan: Continue Memantine 5 mg BID Per request, patient has been referred to neurology for further evaluation and management and she is scheduled to be seen in about a week on 12/20/2024 (6) Osteoporosis: Code(s): M81.0 - Age-related osteoporosis without current pathological fracture Category: Medical Qualifiers: Osteoporosis type: unspecified Presence of current pathological fracture: without current pathological fracture Qualified Code(s): M81.0 - Age-related osteoporosis without current pathological fracture Plan: Patient reportedly last had a bone density scan done in [place] sometime in the past 1 to 2 years although she does not know how her scan came out She has been on Ibandronate 150 mg once a month supposedly for almost 2 years now but she is not exactly sure as to when she started on this She was therefore sent for a repeat BMD for follow up - BMD done on 10/22/2024 revealed that the bone mineral density of the lumbar spine is 1.186 with a T-score of 0.1, and a Z-score of 1.9 nd the bone mineral density of the distal radius is 0.656 with a T-score of -2.5, and a Z-score of 0.2, consistent with her diagnosis of osteoporosis As we do not have her previous BMD for comparison, we will go ahead and consider this as her index screen to help guide her treatment going forward (7) GERD without esophagitis: Code(s): K21.9 - Gastro-esophageal reflux disease without esophagitis Category: Medical Plan: Dietary restrictions reinforced Continue Pantoprazole 40 mg QD and Famotidine 20 mg BID PRN (8) Allergic rhinitis: Code(s): J30.9 - Allergic rhinitis, unspecified Category: Medical Qualifiers: Allergic rhinitis trigger: unspecified Allergic rhinitis seasonality: unspecified Qualified Code(s): J30.9 - Allergic rhinitis, unspecified Plan: Continue Fluticasone 50 mcg nasal spray QD PRN - Rx refilled (9) Mouth sores: Code(s): K13.79 - Other lesions of oral mucosa Category: Medical Plan: Likely due to her dentures and she will continue to work with her dentist about correcting this issue Will continue her for now on Magic Mouthwash PRN for symptomatic relief - Rx refilled (10) Neck pain: Code(s): M54.2 - Cervicalgia Category: Medical Plan: Have advised patient again that her recent right-sided neck pain may be referred pain from her cervical spine Cervical spine x-rays done in August 2024 revealed (+) reversal of the normal cervical lordosis which may be positional or related to muscular spasm. There is (+) chronic grade 1 retrolisthesis of C5 on C6 and multilevel degenerative disc disease and bilateral facet arthropathy, most prominent at C4-C7 Cervical spine CT done in late September 2024 revealed (+) multilevel cervical spondylosis resulting in grade 1 anterolisthesis at C3-4 without gross acute fracture, and a questionable small 5 mm diverticulum at the 7 o'clock position at the upper trachea (11) Low back pain: Code(s): M54.50 - Low back pain, unspecified Category: Medical Qualifiers: Chronicity: unspecified Back pain laterality: midline Sciatica presence: without sciatica Qualified Code(s): M54.50 - Low back pain, unspecified Plan: Reinforced activity and weight-lifting restrictions Lumbar spine x-rays done in August 2024 revealed no new compression fractures but there is a slight to mild eccentric wedge deformity at L4 not appearing significantly changed. There are also (+) multilevel degenerative changes and retrolisthesis at L1-L2 She was on Gabapentin 300 mg TID for her low back pain previously but this was discontinued a couple of months ago when there were concerns that her neurologic symptoms then could have been side effects from her Gabapentin Continue Cyclobenzaprine 10 mg Q HS PRN (12) Bilateral primary osteoarthritis of hip: Code(s): M16.0 - Bilateral primary osteoarthritis of hip Category: Medical Plan: She reports experiencing increasing pain in both hips lately, with pain slightly worse in the left hip Patient states that she's had total arthroplasty of both hips done in [place] a few years ago with her left hip surgery done more recently in 2022 and she is concerned that her recent hip pain may be related to her arthroplasty She was sent for bilateral hip x-rays (done in August 2024) which revealed (+) moderate bilateral hip OA. There are changes of left femoral ORIF without evidence of hardware complication and healed left intertrochanteric fracture with prominent new bone/callus formation. There are partially visualized right femoral orthopedic screws without evidence of hardware complication Will go ahead and refer her to orthopedics for further evaluation and management of her increasing bilateral hip pains (13) Left knee pain: Code(s): M25.562 - Pain in left knee Category: Medical Qualifiers: Chronicity: unspecified Qualified Code(s): M25.562 - Pain in left knee Plan: Patient also reports that she's had total arthroplasty of both knees done in [place] a few years ago and she is concerned about her recent knee pain Left knee x-rays done in August 2024 revealed (+) findings of total left knee arthroplasty without evidence of complication, with (+) trace joint effusion (14) Anxiety: Code(s): F41.9 - Anxiety disorder, unspecified Category: Medical Plan: Continue Doxepin 10 mg Q HS, Buspirone 20 mg BID and Bupropion XL 150 mg Q AM (15) Bipolar 1 disorder: Code(s): F31.9 - Bipolar disorder, unspecified Category: Medical Plan: Continue Vanlafaxine ER 225 mg Q AM, Lamotrigine 250 mg (200 mg + 25 mg x 2) QD, Vraylar 3 mg QD and Bupropion XL 150 mg Q AM Per request, she was referred to psychiatry and she is scheduled to see her therapist/psychiatrist sometime next week for follow up (16) Overweight (BMI 25.0-29.9): Code(s): E66.3 - Overweight Category: Medical Plan: Per patient, she's had a Mabel-en-Y gastric bypass surgery years ago and has lost about 120 pounds or more since her surgery Continue Pantoprazole 40 mg QD and she is reminded to completely avoid taking any NSAIDs to prevent the development of ulcers, especially marginal ulcers Plan Follow up in 3 months Orders: Orders Complete Blood Count Auto Diff Today D64.9 - Anemia, unspecified Comprehensive [place]. Panel Fast Today E78.00 - Pure hypercholesterolemia, unspecified Lipid Panel Today E78.00 - Pure hypercholesterolemia, unspecified Vitamin D 25-OH Total Today E55.9 - Vitamin D deficiency, unspecified Rast Allergen Today Z88.9 - Allergy status to unspecified drugs, medicaments and biological substances PT Evaluation and Treatment 12/10/24 R26.81 - Unsteadiness on feet, R42 - Dizziness and giddiness, R53.1 - Weakness TSH reflex Free T4 Today E78.00 - Pure hypercholesterolemia, unspecified UA CC w/rflx Micro + Cult Today R30.0 - Dysuria Complete Blood Count Auto Diff 3 Months D64.9 - Anemia, unspecified Lipid Panel 3 Months E78.00 - Pure hypercholesterolemia, unspecified Comprehensive [place]. Panel Fast 3 Months E78.00 - Pure hypercholesterolemia, unspecified Referrals Speech and Hearing Referral R47.1 - Dysarthria and anarthria, R47.81 - Slurred speech Orthopedics Referral M16.0 - Bilateral primary osteoarthritis of hip Medications: New Magic Mouthwash Diphen/Lido/Antacid 1:1:1 Lidocaine Viscous 2 % 80mL; diphenhydramine 12.5 mg/5 mL 80mL; aluminum-mag hydrox-simeth [id number]/5mL 80mL 20 mL PO Q3H PRN 240 mL 0RF mouth pain Changed From ibandronate 150 mg PO Q28D To ibandronate 150 mg PO Q28D 3 months 4 tabs 3RF Refilled cyclobenzaprine 10 mg PO BEDTIME 90 days 90 tabs 0RF muscle spasm fluticasone propionate 50 mcg/actuation administer into each nostril 1 spray intranasal DAILY PRN 48 grams 1RF Nasal Congestion
== END 2024-12-10 15:17 | disposition home or self-care (01) ==
LOC: HO.HMCH 14:26
PROVIDERS: PCP Internal Medicine; Visit Provider Internal Medicine
DX: R53.1 Weakness (principal); F03.90 Unspecified dementia, unspecified severity, without behavioral disturbance, psychotic disturbance, mood disturbance, and anxiety; F31.9 Bipolar disorder, unspecified; R47.1 Dysarthria and anarthria; I10 Essential (primary) hypertension; E78.00 Pure hypercholesterolemia, unspecified; M81.0 Age-related osteoporosis without current pathological fracture; K21.9 Gastro-esophageal reflux disease without esophagitis; J30.9 Allergic rhinitis, unspecified; K13.79 Other lesions of oral mucosa; M54.2 Cervicalgia; M54.50 Low back pain, unspecified

== ENCOUNTER → 2024-12-10 14:25 | Outpatient (BNVA) | payer OTHER, SELFPAY | PROVIDERS: PCP Internal Medicine; Visit Provider Internal Medicine | DX: R53.1 Weakness (principal); R47.1 Dysarthria and anarthria; I10 Essential (primary) hypertension; E78.00 Pure hypercholesterolemia, unspecified; F03.90 Unspecified dementia, unspecified severity, without behavioral disturbance, psychotic disturbance, mood disturbance, and anxiety; M81.0 Age-related osteoporosis without current pathological fracture; K21.9 Gastro-esophageal reflux disease without esophagitis | CPT/HCPCS: 96127; 99212 ==

== ENCOUNTER 2024-12-11 07:43 | Outpatient (REF) | payer MEDICARE, SELFPAY ==
[2024-12-11 08:04] LABS: MANUAL DIFF FLAG NO
[2024-12-11 08:40] LABS: Basophils Percent Auto 0.8 % (0-2); Eosinophils Absolute Auto 0.1 X10*3/uL (0.0-0.4); Eosinophils Percent Auto 2.2 % (0-4); Hematocrit 38.1 % (37.0-47.0); Hemoglobin 12.5 g/dl (12.0-16.0); Imm Gran Abs Auto 0.01 X10*3/uL (0.00-0.03); Imm Gran Pct Auto 0.2 % (0.0-0.4); Lymphocytes Percent Auto 39.6 % (20-40); Mean Corpuscular HGB Conc 32.8 g/dl (31.0-35.0); Mean Corpuscular Hemoglobin 32.5 pg (27.0-33.0); Mean Platelet Volume 9.3 fL (9.4-12.3); Monocytes Absolute Auto 0.4 X10*3/uL (0.1-1.2); Monocytes Percent Auto 8.2 % (2-11); Neutrophils Absolute Auto 2.4 x10*3/uL (2.0-8.3); Platelet Count 240 X10*3/uL (160-400); Red Blood Count 3.85 X10*6/uL (4.20-5.50); Red Cell Distribution Width 13.6 % (11.0-16.0)
[2024-12-11 09:26] LABS: Alanine Aminotransferase 21 U/L (0-31); Albumin Level 3.8 g/dL (3.5-5.0); Alkaline Phosphatase 69 U/L (39-117); Anion Gap 10 (12-20); Aspartate Amino Transferase 32 U/L (5-31); Bilirubin Total 0.6 mg/dL (0.0-1.0); Blood Urea Nitrogen 13 mg/dL (9-16); Calcium 9.2 mg/dL (8.4-10.2); Carbon Dioxide 28 mmol/L (22-29); Chloride 109 mmol/L (96-108); Cholesterol 185 mg/dL (<200); Estimated Glomerular Filt Rate > 60; Glucose Fasting 96 mg/dL (60-99); HDL Cholesterol 71 mg/dL (>40); LDL Cholesterol Calculated 100 mg/dL (<100); Potassium 4.2 mmol/L (3.3-5.1); Sodium 143 mmol/L (135-145); TSH reflex Free T4 2.71 uIU/mL (0.32-4.0); Total Protein 7.9 g/dL (6.5-8.0); Triglycerides 71 mg/dL (<150); Vitamin D 25-OH Total 36.9 ng/mL (>30)
[2024-12-11 10:30] LABS: Appearance Urine Clear; Color Urine Yellow; Glucose Urine UA Negative (Negative); Leukocyte Esterase Urine Trace (Negative); Nitrite Urine Negative (Negative); PH 6.5 (5.0-9.0); UMIC TRIGGER UACC YES; Urine Blood Negative (Negative); Urine Ketones Negative (Negative); Urine Protein Negative (Neg-Trace)
[2024-12-11 10:42] LABS: Bacteria Urine None Seen (None Seen); Hyaline Casts Urine 0-2 /LPF (0-2); RBC Urine 0-2 /HPF (0-2); WBC Urine 0-5 /HPF (0-5)
[2025-01-03 11:59] LABS: Class Almond 0; Class Alternaria alternata 0; Class Aspergillus fumigatus 0; Class Bermuda Grass 0; Class Birch 0; Class Brazil Nut 0; Class Cashew 0; Class Cat Dander 0; Class Cladosporium herbarum 0; Class Cockroach 0; Class Codfish 0; Class Common Ragweed 0; Class Cottonwood 0; Class Cow's Milk 0; Class Derm. pterony 0; Class Dermatophagoides farinae 0; Class Dog Dander 0; Class Egg white 0; Class Elm 0; Class Hazelnut 0; Class Macadamia Nut 0; Class Maple Box Elder 0; Class Mountain Cedar 0; Class Mouse Urine Protein 0; Class Mugwort 0; Class Oak 0; Class Peanut 0; Class Penicillium crysogenum 0; Class Rough Pigweed 0; Class Salmon 0; Class Scallop 0; Class Sesame Seed 0; Class Sheep Sorrel 0; Class Shrimp 0; Class Soybean 0; Class Sycamore 0; Class Timothy Grass 0; Class Tuna 0; Class Walnut 0; Class Walnut Tree 0; Class Wheat 0; Class White Ash 0; Class White Mulberry 0; D001 IgE D pteronyssinus <0.10 kU/L; D002 - IgE D farinae <0.10 kU/L; E001 - IgE Cat Dander <0.10 kU/L; E005 - IgE Dog Dander <0.10 kU/L; E072-IgE Mouse Urine <0.10 kU/L; F001-IgE Egg White <0.10 kU/L; F002-IgE Milk <0.10 kU/L; F003-IgE Codfish <0.10 kU/L; F004-IgE Wheat <0.10 kU/L; F010-IgE Sesame Seed <0.10 kU/L; F013-IgE Peanut <0.10 kU/L; F014-IgE Soybean <0.10 kU/L; F017-IgE Hazelnut (Filbert) <0.10 kU/L; F018-IgE Brazil Nut <0.10 kU/L; F020-IgE Almond <0.10 kU/L; F024-IgE Shrimp <0.10 kU/L; F040-IgE Tuna <0.10 kU/L; F041 IgE Salmon <0.10 kU/L; F202-IgE Cashew Nut <0.10 kU/L; F256-IgE Walnut <0.10 kU/L; F338-IgE Scallop <0.10 kU/L; F345-IgE Macadmia Nut <0.10 kU/L; G002 IgE Bermuda Grass <0.10 kU/L; G006 - IgE Timothy Grass <0.10 kU/L; I006-IgE Cockroach, German <0.10 kU/L; Immunoglobulin E 6 kU/L (<OR=114); M001 IgE Penicillium chrysogen <0.10 kU/L; M002 - IgE Cladosporium herbar <0.10 kU/L; M003 - IgE Aspergillus fumigat <0.10 kU/L; M006 - IgE Alternaria alternat <0.10 kU/L; T001 IgE Maple/Box Elder <0.10 kU/L; T003 IgE Common Silver Birch <0.10 kU/L; T006 - IgE Cedar, Mountain <0.10 kU/L; T007 - IgE Oak, White <0.10 kU/L; T008 IgE Elm, American <0.10 kU/L; T010 - IgE Walnut <0.10 kU/L; T011 - IgE Maple Leaf Sycamore <0.10 kU/L; T014 - IgE Cottonwood <0.10 kU/L; T015 - IgE Ash, White <0.10 kU/L; T070 - IgE White Mulberry <0.10 kU/L; W001 - IgE Ragweed, Short <0.10 kU/L; W006 - IgE Mugwort <0.10 kU/L; W014 IgE Pigweed, Common <0.10 kU/L; W018 IgE Sheep Sorrel <0.10 kU/L
== END 2024-12-11 07:44 | disposition home or self-care (01) ==
LOC: HO.LAB 07:43
PROVIDERS: PCP Internal Medicine; Visit Provider Internal Medicine
DX: Z88.9 Allergy status to unspecified drugs, medicaments and biological substances (principal); D64.9 Anemia, unspecified; E78.00 Pure hypercholesterolemia, unspecified; E55.9 Vitamin D deficiency, unspecified; Z91.09 Other allergy status, other than to drugs and biological substances
CPT/HCPCS: 36415; 80053; 80061; 81001; 81003; 82306; 82785; 84443; 85025; 86003

== ENCOUNTER → 2024-12-23 12:00 | Outpatient (BNV) | payer MEDICARE, SELFPAY | PROVIDERS: PCP Internal Medicine; Visit Provider Internal Medicine | DX: R92.8 Other abnormal and inconclusive findings on diagnostic imaging of breast (principal) | CPT/HCPCS: 76642; 77065; G0279 ==

== ENCOUNTER 2024-12-23 12:03 | Outpatient (REF) | payer MEDICARE, SELFPAY ==
--- NOTE | ~2024-12-23 | MM_ITS ---
EXAMINATION: MM DIAGNOSTIC DIGITAL BREAST TOMOSYNTHESIS, LEFT CLINICAL INFORMATION: Call back from screening for focal asymmetry. COMPARISON: Mammography: Priors on PACS. TECHNIQUE: Digital breast tomosynthesis is performed in both the craniocaudal and mediolateral oblique views along with computer-aided detection (CAD). Synthesized 2D images are generated from the tomosynthesis. FINDINGS: There are scattered areas of fibroglandular density (ACR BI-RADS breast composition Category b). Circumscribed oval mass upper outer breast persist on additional imaging projections with morphology consistent with a lymph node. There is architectural distortion in the retroareolar region anterior depth best seen on CC view. No suspicious calcifications or other abnormal findings. Targeted color Doppler ultrasound scanning in the retroareolar region demonstrates normal fibronodular breast tissue there is no sonographic correlate for the architectural distortion seen on mammography. At 1:00 5 cm from the nipple there is a normal-appearing intramammary lymph node correlating with the mammographic oval mass. MM/MM tomosynthesis added views L IMPRESSION: Normal intramammary lymph node. Benign. Architectural distortion the retroareolar region best seen on CC view without sonographic correlate. Recommend stereotactic core needle biopsy at this time for further confirmation. The findings and recommendations were discussed with the patient the procedure will be scheduled. ASSESSMENT: BI-RADS BI-RADS 4 - Suspicious finding RECOMMENDATION: Biopsy recommended Results were provided to the patient at time of visit by the technologist. This patient's information was entered into a reminder system with a target due date for their next mammogram. Electronically signed by: Charito Anderson DO 12/23/2024 01:33 PM EDT
--- OUTSIDE RECORDS SUMMARY | 2024-12-23 13:19 | XMS_ITS | Clinical Summary ---
Author Organization [employer] Address [address] [place] [address] Care Team Providers Care Ham Smoker Name Role Phone Unavailable Primary Care Provider [...] Description 10/07/2024 1:00 PM EST Office Visit [facility] ADULT DENTAL [address] [place] [address] Maddie Bejarano DDS from Last 3 Months [...] from Last 3 Months Insurance DENTAL - [facility] SCO
== END 2024-12-23 12:04 | disposition home or self-care (01) ==
LOC: HO.MAMMO 12:03
PROVIDERS: PCP Internal Medicine; Visit Provider Internal Medicine
DX: N64.89 Other specified disorders of breast (principal)
CPT/HCPCS: 76642; 77061; 77065

== ENCOUNTER 2024-12-29 11:15 | Outpatient (REF) | payer MEDICARE, SELFPAY ==
[2024-12-29 12:42] LABS: Appearance Urine Clear; Color Urine Yellow; Glucose Urine UA Negative (Negative); Leukocyte Esterase Urine Negative (Negative); Nitrite Urine Negative (Negative); PH 6.5 (5.0-9.0); Urine Blood Negative (Negative); Urine Ketones Negative (Negative); Urine Protein Negative (Neg-Trace)
--- OUTSIDE RECORDS SUMMARY | 2024-12-29 13:24 | XMS_ITS | Clinical Summary ---
Author Organization [employer] Address [address] [place] [address] Care Team Providers Care Screwdown Operator Name Role Phone Unavailable Primary Care Provider [...] Description 10/07/2024 1:00 PM EST Office Visit [facility] CHC ADULT DENTAL [address] [place] [address] Maddie Bejarano DDS from Last 3 Months [...] 3 Months Insurance DENTAL - [facility] SCO
== END 2024-12-29 11:16 | disposition home or self-care (01) ==
LOC: HO.XRAY 11:15
PROVIDERS: Absent Provider Internal Medicine; PCP Internal Medicine; Referring Provider Physician Assistant
DX: R30.0 Dysuria (principal)
CPT/HCPCS: 81003

== ENCOUNTER 2025-01-03 13:27 | Outpatient (AMB) | payer MEDICARE, SELFPAY ==
--- NOTE | 2025-01-03 13:43 | A.OFFVIS_ITS ---
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/ Kavin Allergies No Known Allergies Allergy (Verified 12/10/24 14:44) Medication List - Last Reconciled 01/03/25 by Harris Bennett MD albuterol sulfate 90 mcg/actuation 2 puffs inhalation Q4-6H PRN atorvastatin 80 mg PO DAILY bupropion HCl XL 150 mg PO DAILY 90 days buspirone 20 mg PO BID cariprazine (Vraylar) 3 mg PO DAILY 30 days cyclobenzaprine 10 mg PO BEDTIME 90 days famotidine 40 mg (2 x 20 mg) PO DAILY PRN fluticasone propionate 50 mcg/actuation 1 spray intranasal DAILY PRN ibandronate 150 mg PO Q28D 3 months lamotrigine 200 mg PO DAILY 30 days lamotrigine 50 mg (2 x 25 mg) PO DAILY Magic Mouthwash Diphen/Lido/Antacid 1:1:1 20 mL PO Q3H PRN meclizine 25 mg PO BEDTIME PRN memantine 20 mg (2 x 10 mg) PO DAILY nifedipine ER 60 mg PO DAILY nitrofurantoin macrocrystal 100 mg PO BID 5 days pantoprazole 40 mg PO DAILY@0630 venlafaxine ER 225 mg PO DAILY HPI Comments Details: The patient is a 79-year-old female presenting with dizziness and vertigo. She experiences dizziness episodes characterized by lightheadedness when standing up from bed or a seated position. The dizziness is associated with a sensation of room spinning within her head. She has had four recent falls within a month. A neurologist previously evaluated the patient, suggesting vertigo was a potential diagnosis during a September hospital admission. Blood pressure management included nifedipine, which has been in use for the past several years. No other known cardiac issues including coronary disease or myocardial infarction or cardiomyopathy. It seems she did see a windmill mechanic in [place] and we will need to get those records for review. [facility] Medical History Dysarthria Ataxia Overweight (BMI 25.0-29.9) Bipolar 1 disorder GERD without esophagitis Allergic rhinitis Dementia Anxiety Osteoporosis Pure hypercholesterolemia Essential hypertension Depression Arthritis Surgical History History of cataract extraction History of Mabel-en-Y gastric bypass History of arthroplasty of right shoulder History of total hip arthroplasty History of total knee arthroplasty Hx of arthroscopic knee surgery Family History Other FH: mental illness Substance abuse Social History Household Members: Family Housing: House Do you presently have visiting nurse or other home services: No Alcohol intake: never Patient Tobacco Use Status: Former Tobacco user e-Cigarette/Vaping Use: Never Used Second Hand Smoke Exposure: Yes service: No Current occupational status: unemployed Current occupational exposures/hazards: No Cognitive needs: Yes (walker, cane) Hearing needs: No Vision needs: Yes (glasses) Review of Systems Const Reports fatigue and Denies weakness ENT Reports dizziness Card Denies chest pain, Denies chest pain with activity, Denies syncope, Denies rapid heart rate, Denies pedal edema, Denies edema, Denies leg edema, Denies lightheadedness, Reports palpitations, Reports dyspnea on exertion and Denies orthopnea Resp Denies cough and Reports dyspnea on exertion GI Denies hematochezia and Denies change in stool character Musc Denies abnormal gait, Denies muscle cramps, Denies muscle weakness, Denies numbness, Denies radiating pain into limb and Denies tingling Neuro Denies abnormal gait, Reports dizziness, Denies syncope, Denies numbness, Denies tingling and Denies weakness Endo Reports fatigue and Reports palpitations Physical Exam Vital Signs: Last Vital Signs Pulse 68 01/03/25 13:44 BP 114/62 01/03/25 13:44 BMI result Body Mass Index 27.6 Const General: comfortable and no acute distress Orientation/consciousness: patient oriented x3 HEENT Other: Unremarkable Head: Yes normal to inspection Neck Neck: Yes normal visual inspection Chest Chest palpation & inspection: normal inspection of the chest Resp Auscultation: clear to auscultation bilaterally Cardio Palpation: normal PMI Heart sounds: S1 normal heart sound present, S2 normal heart sound present, no gallops, no murmurs and no rubs GI Palpation (GI): Soft to palpation Back/Spine/Pelvis Other: unremarkable Skin General skin exam: no rashes or lesions noted Neuro General: patient oriented x3 Extrem General: Yes normal to inspection Psych Mental Status: mental status grossly normal Assessment & Plan Assessment & Plan (1) Dizziness: Code(s): R42 - Dizziness and giddiness Category: Medical (2) Recurrent syncope: Code(s): R55 - Syncope and collapse Category: Medical (3) Unsteady gait: Code(s): R26.81 - Unsteadiness on feet Category: Medical Plan Cardiac studies reviewed. EKG with underlying sinus rhythm at 86/Min; AR prolongation to 216 milliseconds; LVH with repolarization changes; normal AR and corrected QT. Echocardiogram with LVEF of 59%. No significant valvular findings. Moderate plaque in the sinotubular ridge. Per neurology notes, there was question of rather central versus vestibular system abnormality causing vertigo but it seems she may also have concurrent orthostatic dizziness. We will pursue further workup with a tilt-table test. With regard to her blood pressure medication, she is on nifedipine ER 60 mg daily. We can try to cut that dose and see if there is any difference in symptoms. Plan discussed with patient as well as son and they are in agreement. We will also request records from [place] windmill mechanic. Follow-up in a few weeks. DISCUSSION: We discussed the likely diagnosis of potential orthostatic hypotension due to antihypertensive medication, and the management plan includes reducing ni fedipine's dose. I explained this could help mitigate dizziness symptoms upon standing. A tilt table test will help uncover any significant blood pressure drops. I emphasized the importance of obtaining past medical records to provide a thorough history. The potential adjustments to medication align with her situation, for which we discussed the rationale and possible improvement in symptoms. Orders: Orders ECG Tilt Table Test Today R55 - Syncope and collapse Medications: New nifedipine ER 30 mg PO DAILY 90 tabs 1RF Discontinued nifedipine ER Discontinued Reason: Doctor's Order 60 mg PO DAILY 90 tabs 0RF I10 - Essential (primary) hypertension Patient Instructions: - Reduce nifedipine dose from 60 mg to 30 mg. - Undergo a tilt table test as scheduled. - Avoid quick position changes to prevent dizziness. - Monitor blood pressure regularly. - Return for a follow-up in six weeks. - Contact the office if experiencing worsening symptoms or new concerns. Coding Level of Care Code New Pt Level 4 (22780) Complex EM visit Add On G2211 Diagnoses Dizziness R42 Recurrent syncope R55 Unsteady gait R26.81
[2025-01-03 13:44] VITALS: BP 114/62; PULSE 68; BMI 27.6
--- OUTSIDE RECORDS SUMMARY | 2025-01-03 15:26 | XMS_ITS | Clinical Summary ---
Author Organization [employer] Address [address] [place] [address] Care Team Providers Care Clamshell Engineer Name Role Phone Unavailable Primary Care Provider [...] Description 10/07/2024 1:00 PM EST Office Visit [facility] CHC ADULT DENTAL [address] [place] [address] Maddie Bejarano DDS from Last 3 Months [...] from Last 3 Months Insurance DENTAL - [facility] SCO
== END 2025-01-03 14:25 | disposition home or self-care (01) ==
LOC: HO.HCS 13:27
PROVIDERS: PCP Internal Medicine; Visit Provider Internal Medicine
DX: R42 Dizziness and giddiness (principal); R55 Syncope and collapse; R26.81 Unsteadiness on feet
CPT/HCPCS: 99214; G2211

== ENCOUNTER → 2025-01-03 13:27 | Outpatient (BNVA) | payer MEDICARE, SELFPAY | PROVIDERS: PCP Internal Medicine; Visit Provider Internal Medicine | DX: R42 Dizziness and giddiness (principal); R55 Syncope and collapse; R26.81 Unsteadiness on feet | CPT/HCPCS: 99212 ==

== ENCOUNTER 2025-01-04 12:12 | Outpatient (RCR) | payer MEDICARE, SELFPAY ==
--- NOTE | 2025-01-14 17:12 | MHC.SP.ADU ---
Referring provider: MD Kavin Reason for Referral: dysarthria, anarthria, and slurred speech Type of Treatment: 88270 Evaluation Speech Sound Production WITH Language Date of Plan of Treatment: 01/04/25 Onset of Symptoms/Illness: 06/22/24 Date Treatment Started: 01/04/25 Medical Diagnosis: dysarthria and anarthria Primary Speech Language Diagnosis: I69.911 Memory deficit History Brittany is a bilingual [place] Citizen/British 80 year old female who was referred to [facility] for an evaluation by Jacob Vale MD with [facility]. The referral noted dysarthria, anarthria, and slurred speech. The patient intake form, which was completed with assistance from her son, rated difficulty expressing thoughts, being understood by others, and orientation/memory as the most prevalent concerns. There were also concerns noted for swallowing, understanding others, problem solving, attention, maintaining topic of conversation, following directions, and oral motor weakness. When asked about priority for the evaluation on this date, memory, word finding, understanding, and speech were all brought up. Medical History: Acid Reflux Arthritis COPD High Blood Pressure Neurological Conditions e.g.: [place]'s, Parkinson's Sinusitis Other: Bipolar, Anxiety/depression, intellectual deficit, panic attacks Patient Orientation: Alert & Oriented x 4 Social History: Highest level of education obtained: 3rd grade Swallowing History: Dysphagia Specific: Comments: Caron swallow was not evaluated on this date with any imaging or PO trials. Rather, swallowing was a topic of the patient interview. During the interview Brittany reported dry mouth/throat, a ?burning sensation? in the throat, a need to cut food into small pieces, learning to adjust to new dentures, and water ?going down the wrong pipe.? When asked how frequently she has difficulty with drinking water, she responded ?every day.? Reported Speech, Language, Cognition difficulties: Understanding Attention Memory Cognition Speaking Problem Solving Swallowing Assessment Brittany was administered various tasks to assess cognitive-linguistic and motor speech domains. Matheuss testing was largely in British; however she was given the option to provide responses in either British or [place] Citizen. It is also important to mention that Caron cannot read or write; she attended school up to third grade. Because of this, reading and writing tasks were not analyzed. Speech Production: Clinical Impression: Impaired Brittany?s speech was characterized by inconsistent and unpredictable speech sound errors with islands of clear speech. Articulation was the most noticeably affected component of speech however during some tasks, such as alternating motion rate (AMR) and sequential motion rate (SMR); she presented with frequent speech breaks suggesting respiration is also having an effect on her speech. AMR is assessed by having the individual produce the following sounds as fast as possible in three separate tasks: /p/ (?puh?), /t/ (?tuh?), and /k/ (?kuh?). SMR is assessed by having the individual produce the three sounds together as fast as possible in one singular task: ?puh tuh kuh.? Both AMR and SMR productions were slow and largely imprecise; she had the greatest difficulty with the /k/ sound as well as putting all three sounds together. She consistently took breaks with less than 10 repetitions of a sound. Intelligibility of sounds decreased as speed increased. Overall, Matheuss speech aligns more with characteristics seen in Apraxia of Speech; however some characteristics, such as affected respiration and decrease in intelligibility as speed increases, are suggestive of dysarthria. It is recommended that Caron speech be further evaluated in order to best select goals and treatment plan. Tests of Speech & Lang Adults: BNT Clinical Impression: Impaired Brittany was shown the ?Cookie Theft? picture as an evaluation of language. She consistently produced full, grammatically correct sentences. She presented with intermittent difficulty with word finding, however she largely was able to come up with the target word herself after presenting with a short delay and/or circumlocution (describing a word without saying the word). For example, she stated, ?She is wiping? drying the dish.? Brittany was then administered the short version of the [place] Naming Test (BNT) in which she was shown 15 line drawings and asked to name them in British or [place] Citizen. Brittany produced the target word in 7 of 15 drawings. When provided with cueing, including phonemic (sound) cues and multiple choices read aloud, she accurately named 7 additional drawings. When she wasn?t able to produce the target word, she was often able to describe it accurately. Based on today?s testing, it is recommended that word finding is targeted in speech therapy. Tests of Cognition: Clinical Impression: Impaired Brittany was alert and oriented x4. She completed tasks of automatic speech and 2-step directions without any perceived difficulty. When given 3-step directions, she appropriately followed the directions in 66% of tasks. Upon immediate and delayed recall (10 seconds, 5 minutes), Brittany recalled 2/3 words independently. When given cues such as multiple choice and phonemic cues (i.e. ?mazariegos? for hat), Brittany accurately recalled the final word. It is important to note that all memory testing was conducted in British. It is possible that administering the same tasks in [place] Citizen could have different results. It is recommended that Brittany?s cognitive skills be further evaluated with standardized assessment such as the Cognitive Linguistic Quick Test (CLQT+) or Repeatable Battery for the Assessment of Neuropsychological Status (RBANS). Impressions and Recommendations Summary: It is recommended that Brittany attend outpatient speech therapy to target speech, anomia, and cognition. Recommendation for Speech Therapy: Further Testing Needed Outpatient Speech Therapy Modified Barium Swallow Study - Outpatient Frequency/Duration: 1x/week x 12 weeks Time to Reassess: 3 months Correction Goals: LTG 1 Brittany will complete additional standardized testing to obtain standardized scores and update goals as appropriate. LTG 2 Brittany will improve overall speech intelligibility and improve precision of speech sounds. LTG 3 Brittany will improve anomia (word finding) LTG 4 Brittany will improve memory recall Short Term Goals: STG 1.1 Brittany will complete a standardized assessment for cognition (such as CLQT+ or RBANS) with 100% completion to better inform goals in the area of attention and memory. STG 2.1 Brittany will independently recall clear speech strategies with 100% accuracy. STG 2.2 Brittany will produce clear speech at the word level in structured practice in 80% of trials with moderate support. STG 3.1 Brittany will name functional items with moderate support (i.e. phonemic cues) with 80% accuracy during confrontational naming tasks. STG 3.2 Brittany will contribute 6 features of semantic feature analysis with target word with minimal clinician support STG 4.1 When given a 3-word list, Brittany will recall list upon immediate recall in 80% of opportunities when provided with moderate assistance. STG 4.2 When given a 3-word list, Brittany will recall list upon delayed recall in 80% of opportunities when provided with moderate assistance. Recommended Referrals to be Discussed with Primary Care Provider: Audiological Evaluation Other: See Comment -It is recommended that Brittany be referred for an instrumental swallow evaluation due to reported difficulty with swallowing -It is recommended that Brittany be referred for a full audiological evaluation to rule in/out hearing loss Patient Education: Completed: Yes Patient/Caregiver Education: Described Results of Evaluation Patient expressed understanding of evaluation Patient agrees with goals and treatment plan Family/Caregivers expressed understanding of results Family/Caregivers expressed agreement with goals and treatment plan Packaging Tech Clinican/Clinical Fellow: No Supervisory Statement: N/A Speech Language Pathologist: Ilda Lundberg M.A., CCC-TAILOR WOMEN'S GARMENT ALTERATION
== END 2025-01-24 15:09 | disposition still patient (30) ==
LOC: HO.SH 12:12
PROVIDERS: Visit Provider Internal Medicine
DX: R47.1 Dysarthria and anarthria (principal); R47.81 Slurred speech
CPT/HCPCS: 92523

== ENCOUNTER 2025-01-06 08:19 | Outpatient (REF) | payer OTHER, SELFPAY ==
--- OUTSIDE RECORDS SUMMARY | 2025-01-07 08:36 | XMS_ITS | Clinical Summary ---
Author Organization [employer] Address [address] [place] [address] Care Team Providers Care Alum Plant Supervisor Name Role Phone Unavailable Primary Care Provider [...] needed for mucositis. 1 each 5 Active Social History Tobacco Use Types Packs/Day Years [...] on patient's age to complete this topic Insurance [facility] SCO
--- OUTSIDE RECORDS SUMMARY | 2025-01-07 08:36 | XMS_ITS | Clinical Summary ---
Author Organization [facility] Address [address] [place] [address] Phone Care Team Providers Care Pole Tester Name Role Phone Unavailable Primary Care Provider Unavailabl e Social History Tobacco Use Types Packs/Day Years Used Date Smoking Tobacco: Never Assessed Sex and Gender Information Value Date Recorded Sex Assigned at Not on file Legal Sex Male 2:25 PM EDT Gender Identity Not on file Sexual Orientation Not on file Plan of Treatment Upcoming Encounters Date Type Department Care Team ([facility] st Contact Info) Description 03/08/2025 1:00 PM EDT Appointment [facility] [address] [place] [address] Health Maintenance Due Date Last Done Comments DTaP,Tdap,and Td Vaccines (1 - Tdap) 01/05/1964 Pneumococcal Vaccine: 50+ Ye ars (1 of 1 - PCV) 1995 Zoster Vaccines (1 of 2) 1995 RSV Immunization Adult Patie nts (1 - 1-dose 75+ series) 01/05/2020 COVID-19 Vaccine ( - 2023-2 5 season) 2024 Cholesterol Screening (Lipid Panel) 2025 Depression Screening 2025 Falls Risk Assessment 2025 Social Influencers of Health Screening 2025 Influenza Vaccine (Season Ended) 2025 HIB Vaccines Aged Out No longer eligi [...] on patient's age to complete this topic MMR Vaccines Aged Out No longer eligi ble based on patient's age to complete this topic Meningococcal ACWY Vaccine Aged Out N o longer eligible based on patient's age to complete this topic Meningococcal B Vaccine Aged Out No l onger eligible based on patient's age to complete this topic RSV Immunization Patients Un alex 20 months Aged Out No longer eligible b ased on patient's age to complete this topic Varicella Vaccines Aged Out No longer eligible based on patient's age to complete this topic Insurance [facility] [id number]
== END 2025-01-06 08:20 | disposition home or self-care (01) ==
LOC: HO.HOSX 08:19
PROVIDERS: Visit Provider Physician Assistant
DX: Z13.89 Encounter for screening for other disorder (principal)

== ENCOUNTER 2025-01-17 11:00 | Outpatient (RCR) | payer MEDICARE, SELFPAY ==
[2025-01-03 10:13] VITALS: BP 121/56; PULSE 87
--- NOTE | 2025-01-31 13:34 | MHC.PT.DC ---
[facility] [place] [facility] [place] [facility] [address] Johan Pathak [address] [phone] F: [phone] F: [phone] F: [phone] F: [phone] Physical Therapy Discharge Report Diagnosis: VESTIBULAR DYSFUNCTION (KP) Date of Surgery: Date of Evaluation: 01/03/25 Date of Discharge: 01/31/25 Treatments to Date: 3 Cancellations to Date: 1 No Shows to Date: 1 Discharge Status: Patient Elected to Stop Discharge Summary: Pt cancelled last scheduled visit due to unrelated medical procedure. Electronically signed by: Hanna Pino PT DPT Please sign and return to therapist. Thank you for your referral.
== END 2025-01-31 13:34 | disposition home or self-care (01) ==
LOC: HO.PT 11:00
PROVIDERS: PCP Internal Medicine; Visit Provider Internal Medicine
DX: H81.10 Benign paroxysmal vertigo, unspecified ear (principal); R26.81 Unsteadiness on feet; R42 Dizziness and giddiness; R53.1 Weakness
CPT/HCPCS: 95992; 97112; 97162

== ENCOUNTER 2025-01-19 09:39 | Outpatient (AMB) | payer OTHER, SELFPAY ==
--- NOTE | 2025-01-19 09:41 | MHC.OFFVIS ---
Vital Signs 01/19/25 09:53 Height 4 ft 11 in Weight 139 lb 4 oz BMI 28.1 BP 119/57 L Blood Pressure Location Lt brachial Position Sitting Pulse 88 Intake Visit Reasons: LT Br stereo Bx for 12 o'clock Asymmetry Intake Note: Patient is seen in office for stereo biopsy CONSULT left breast 12 o'clock asymmetry. Pt c/o: does not feel any lumps or bumps, had a bx in the past same breast (benign), fm hx of breast cancer (mother) age 68, no to breast feeding, first child age 13 yrs old Investigations Consultant Required: No Rolling Machine Operator Automatic: Rolling Machine Operator Automatic Present Accompanied by: Family/Other Allergies No Known Allergies Allergy (Verified 01/19/25 09:47) Medication List - Last Reconciled 01/19/25 by Ty Lowe MD albuterol sulfate 90 mcg/actuation 2 puffs inhalation Q4-6H PRN atorvastatin 80 mg PO DAILY bupropion HCl XL 150 mg PO DAILY 90 days buspirone 20 mg PO BID cariprazine (Vraylar) 3 mg PO DAILY 30 days cyclobenzaprine 10 mg PO BEDTIME 90 days famotidine 40 mg (2 x 20 mg) PO DAILY PRN fluticasone propionate 50 mcg/actuation 1 spray intranasal DAILY PRN ibandronate 150 mg PO Q28D 3 months lamotrigine 200 mg PO DAILY 30 days lamotrigine 50 mg (2 x 25 mg) PO DAILY Magic Mouthwash Diphen/Lido/Antacid 1:1:1 20 mL PO Q3H PRN meclizine 25 mg PO BEDTIME PRN memantine 20 mg (2 x 10 mg) PO DAILY nifedipine ER 30 mg PO DAILY nitrofurantoin macrocrystal 100 mg PO BID 5 days pantoprazole 40 mg PO DAILY@0630 venlafaxine ER 225 mg PO DAILY HPI Comments Details: 80-year-old female patient presenting with a routine mammogram performed on 11/15/2024 with subsequent images performed on 12/23/2024 along with an ultrasound which revealed an area of architectural distortion in the retroareolar region seen best on the CC view. No correlate could be identified on ultrasound. This was felt to be suspicious for malignancy and stereotactic guided core biopsy recommended. She does have a previous history of a left breast biopsy performed approximately 40 years ago with an incision in a periareolar location between the 10 and 02:00 location. This apparently was a benign lesion. She does have a family history of breast cancer including her mother who developed breast cancer at the age of 68 in his subsequently required chemotherapy and radiation therapy. Her father had a bone cancer. She is 8 para 6 with her 1st child being born at the age of [age] years old. [facility] Medical History Dysarthria Ataxia Overweight (BMI 25.0-29.9) Bipolar 1 disorder GERD without esophagitis Allergic rhinitis Dementia Anxiety Osteoporosis Pure hypercholesterolemia Essential hypertension Depression Arthritis Surgical History History of cataract extraction History of Mabel-en-Y gastric bypass History of arthroplasty of right shoulder History of total hip arthroplasty History of total knee arthroplasty Hx of arthroscopic knee surgery Family History Other FH: mental illness Substance abuse Social History Household Members: Family Housing: House Do you presently have visiting nurse or other home services: No Alcohol intake: never Patient Tobacco Use Status: Former Tobacco user e-Cigarette/Vaping Use: Never Used Second Hand Smoke Exposure: Yes service: No Current occupational status: unemployed Current occupational exposures/hazards: No Cognitive needs: Yes (walker, cane) Hearing needs: No Vision needs: Yes (glasses) Female Reproductive History Menstrual Age of Menarche: 9 Age of menopause: 46 Total pregnancies: 8 Number of Living Children: 6 Ab spontaneous: 2 Review of Systems Const All systems reviewed & are unremarkable except as noted in HPI and below Physical Exam Vital Signs: Last Vital Signs Pulse 88 01/19/25 09:53 BP 119/57 L 01/19/25 09:53 BMI result Body Mass Index 28.1 Const General: cooperative and no acute distress Nutritional Appearance: well nourished Orientation/consciousness: patient oriented x3 Limitations: no limitations HEENT Head: Yes normocephalic and Yes atraumatic Ears: hearing grossly normal bilaterally Chest Other: Left breast: No skin change, no nipple retraction, no nipple discharge, no palpable mass, no enlarged lymph nodes. Right breast: No skin change, no nipple retraction, no nipple discharge, no palpable mass, no enlarged lymph nodes Chest/axillae images: 1. Previous incision left breast Resp Effort & Inspection: normal respiratory effort, no audible wheezes, no cough and no respiratory distress Cardio Jugular venous distension: no JVD GI Inspection: Yes normal to inspection Skin Other: Warm, dry, no rash Neuro General: patient oriented x3 Extrem General: Yes no clubbing, cyanosis or edema Assessment & Plan Assessment & Plan (1) Abnormal mammogram of left breast: Code(s): R92.8 - Other abnormal and inconclusive findings on diagnostic imaging of breast Category: Medical Plan 80-year-old female patient presenting with a new area of architectural distortion in the left breast and a retroareolar location felt to be suspicious for malignancy. No ultrasound correlate could be identified. Stereotactic guided core biopsy is scheduled for 01/26/2025. Examination today revealed no suspicious findings in either breast with special attention to the retroareolar left breast. No enlarged lymph nodes are appreciated. I recommended patient return in approximately 1 week following the biopsy to discuss treatment options as necessary. She is welcome to call sooner for any new concerns. Orders: Orders MM stereotactic biopsy LT Today R92.8 - Other abnormal and inconclusive findings on diagnostic imaging of breast Coding Level of Care Code New Pt Level 4 (61534) Diagnoses Abnormal mammogram of left breast R92.8
[2025-01-19 09:53] VITALS: BP 119/57; PULSE 88; BMI 28.1
--- OUTSIDE RECORDS SUMMARY | 2025-01-19 10:27 | XMS_ITS | Clinical Summary ---
Author Organization [employer] Address [address] [place] [address] Care Team Providers Care Supervisor Esters And Emulsifiers Name Role Phone Unavailable Primary Care Provider [...] patient's age to complete this topic Insurance [facility] SCO
--- OUTSIDE RECORDS SUMMARY | 2025-01-19 10:27 | XMS_ITS | Clinical Summary ---
Author Organization [facility] Address [address] [place] [address] Phone Care Team Providers Care Jr. Systems Administrator Name Role Phone Unavailable Primary Care Provider Unavailabl e Social History Tobacco Use Types Packs/Day Years Used Date Smoking Tobacco: Never Assessed Sex and Gender Information Value Date Recorded Sex Assigned at Not on file Legal Sex Male 2:25 PM EDT Gender Identity Not on file Sexual Orientation Not on file Plan of Treatment Upcoming Encounters Date Type Department Care Team ([facility] st Contact Info) Description 03/08/2025 1:00 PM EDT Appointment [facility] Xray [address] [place] [address] Health Maintenance Due Date Last [...] to complete this topic Insurance [facility] JUAN MANUEL GONZALEZ [id number]
== END 2025-01-19 10:08 | disposition home or self-care (01) ==
LOC: HO.HGS 09:39
PROVIDERS: PCP Internal Medicine; Visit Provider Surgery
DX: R92.8 Other abnormal and inconclusive findings on diagnostic imaging of breast (principal)
CPT/HCPCS: 99204

== ENCOUNTER → 2025-01-19 09:39 | Outpatient (BNVA) | payer OTHER, SELFPAY | PROVIDERS: PCP Internal Medicine; Visit Provider Surgery | DX: R92.8 Other abnormal and inconclusive findings on diagnostic imaging of breast (principal) | CPT/HCPCS: 99202 ==

== ENCOUNTER → 2025-01-26 08:00 | Outpatient (BNV) | payer OTHER, SELFPAY | PROVIDERS: PCP Internal Medicine; Visit Provider Internal Medicine | DX: N60.32 Fibrosclerosis of left breast (principal) | CPT/HCPCS: 19081 ==

== ENCOUNTER 2025-01-26 08:02 | Outpatient (REF) | payer OTHER, SELFPAY ==
--- NOTE | ~2025-01-26 | MM_ITS ---
EXAMINATION: STEREOTACTICALLY-GUIDED LEFT BREAST BIOPSY CLINICAL INFORMATION: Area of architectural distortion in the upper central left breast anterior depth. COMPARISON: Priors on PACS. INFORMED CONSENT: After the details of the procedure, as well as the risks (including, but not limited to, bleeding, hematoma formation, and infection), benefits and alternatives (including doing nothing, short-interval follow up, and surgery) to the procedure were explained to the patient in detail and all of her questions were answered, informed written consent was obtained. TECHNIQUE/FINDINGS: A timeout was performed. The lesion intended for biopsy was identified stereotactically and targeted. The skin of the left breast was then cleansed with sterile solution. Using stereotactic guidance, aseptic technique, and 1% lidocaine with and without epinephrine for local anesthesia, a total of 12 cores were obtained through the targeted area with a 9-gauge vacuum-assisted Eviva core biopsy device from a superior approach. At the completion of tissue sampling, a single top hat-shaped metallic clip was deposited at the biopsy site. Adequate sampling was achieved. The postprocedure 2-view direct digital mammogram reveals satisfactory positioning of the biopsy clip. The patient tolerated the procedure well and, after assuring adequate hemostasis, was discharged in good condition after reviewing postbiopsy breast care instructions. Final pathology results are pending. MM/MM stereotactic biopsy LT IMPRESSION: 1. Uncomplicated stereotactically-guided core biopsy of the left breast. The 2-view direct digital postprocedure mammogram reveals satisfactory positioning of the biopsy clip. 2. Final pathology results are pending. A separate report with final recommendations will be issued once these results are made available. Electronically signed by: Charito Anderson DO 01/26/2025 11:31 AM EDT
--- OUTSIDE RECORDS SUMMARY | 2025-01-26 08:10 | XMS_ITS | Clinical Summary ---
Author Organization [facility] Address [address] [place] [address] Phone Care Team Providers Care Wire Twisting Machine Operator Name Role Phone Unavailable Primary Care Provider Unavailabl e Social History Tobacco Use Types Packs/Day Years Used Date Smoking Tobacco: Never Assessed Sex and Gender Information Value Date Recorded Sex Assigned at Not on file Legal Sex Male 2:25 PM EDT Gender Identity Not on file Sexual Orientation Not on file Plan of Treatment Upcoming Encounters Date Type Department Care Team ([facility] st Contact Info) Description 03/08/2025 1:00 PM EDT Appointment [facility] Xray [address] [place] [address] Health Maintenance Due Date Last [...] patient's age to complete this topic Insurance [facility] JUAN MANUEL GONZALEZ [id number]
[2025-01-26] MEDS: Lidocaine HCl 1 % 20 ML VIAL 5 ML SUBCUT (09:25)
[2025-01-26] MEDS: Sodium Bicarbonate 8.4% 50 MEQ/50 ML VIAL SUBCUT (09:29)
[2025-01-26] MEDS: Lidocaine HCl 1%/Epi 1:100,000 10 ML VIAL SUBCUT (09:50)
== END 2025-01-26 08:03 | disposition home or self-care (01) ==
LOC: HO.MAMMO 08:02
PROVIDERS: PCP Internal Medicine; Visit Provider Surgery
DX: R92.8 Other abnormal and inconclusive findings on diagnostic imaging of breast (principal)
CPT/HCPCS: 19081; 88305; A4648; J2003; J2004

== ENCOUNTER 2025-01-28 08:56 | Outpatient (AMB) | payer OTHER, SELFPAY ==
--- NOTE | 2025-01-28 09:03 | MHC.OFFVIS ---
Vital Signs 01/28/25 09:10 Height 4 ft 11 in Weight 139 lb 1.787 oz BMI 28.1 BP 133/59 L Blood Pressure Location Lt brachial Position Sitting Pulse 78 Intake Visit Reasons: 1WK FUV LT Br stereo Bx for 12 o'clock Asymmetry Intake Note: Patient is seen in office for stereo RESULTS, following left breast. Pt c/o: sore and tender, denies infection, here for results Instruments Sales Representative Required: No Accompanied by: Daughter Allergies No Known Allergies Allergy (Verified 01/28/25 09:10) HPI Comments Details: 80-year-old female patient presenting with a routine mammogram performed on 11/15/2024 with subsequent images performed on 12/23/2024 along with an ultrasound which revealed an area of architectural distortion in the retroareolar region seen best on the CC view. No correlate could be identified on ultrasound. This was felt to be suspicious for malignancy and stereotactic guided core biopsy recommended. She does have a previous history of a left breast biopsy performed approximately 40 years ago with an incision in a periareolar location between the 10 and 02:00 location. This apparently was a benign lesion. She does have a family history of breast cancer including her mother who developed breast cancer at the age of 68 in his subsequently required chemotherapy and radiation therapy. Her father had a bone cancer. She is 8 para 6 with her 1st child being born at the age of [age] years old. She underwent a stereotactic guided core biopsy on 01/26/2025. Pathology revealed benign breast tissue with hyalinized stromal fibrosis and lobular atrophy. There is no evidence of malignancy. She tolerated the procedure well denies any ongoing symptoms. [facility] Medical History Dysarthria Ataxia Overweight (BMI 25.0-29.9) Bipolar 1 disorder GERD without esophagitis Allergic rhinitis Dementia Anxiety Osteoporosis Pure hypercholesterolemia Essential hypertension Depression Arthritis Surgical History History of cataract extraction History of Mabel-en-Y gastric bypass History of arthroplasty of right shoulder History of total hip arthroplasty History of total knee arthroplasty Hx of arthroscopic knee surgery Family History Other FH: mental illness Substance abuse Social History Household Members: Family Housing: House Do you presently have visiting nurse or other home services: No Alcohol intake: never Patient Tobacco Use Status: Former Tobacco user e-Cigarette/Vaping Use: Never Used Second Hand Smoke Exposure: Yes service: No Current occupational status: unemployed Current occupational exposures/hazards: No Cognitive needs: Yes (walker, cane) Hearing needs: No Vision needs: Yes (glasses) Female Reproductive History Menstrual Age of Menarche: 9 Review of Systems Const All systems reviewed & are unremarkable except as noted in HPI and below Physical Exam Const General: no acute distress Nutritional Appearance: well nourished Orientation/consciousness: patient oriented x3 Chest Other: Biopsy site in the left breast is clean, dry, and intact. Steri-Strips were removed and a bandage applied. Chest/axillae images: 1. Biopsy site left breast Resp Effort & Inspection: normal respiratory effort, no audible wheezes, no cough and no respiratory distress Skin Other: Warm, dry, no rashes Neuro General: patient oriented x3 Assessment & Plan Assessment & Plan (1) Abnormal mammogram of left breast: Code(s): R92.8 - Other abnormal and inconclusive findings on diagnostic imaging of breast Category: Medical Plan Patient returns 1 week following left breast stereotactic guided core biopsy on 01/26/2025. Pathology revealed benign breast tissue without evidence of atypia or malignancy. She tolerated the procedure well and her wounds are healing nicely. She should resume routine follow-up returned to our office as needed. Coding Level of Care Code Est Pt Level 3 (41586) Diagnoses Abnormal mammogram of left breast R92.8
[2025-01-28 09:10] VITALS: BP 133/59; PULSE 78; BMI 28.1
--- OUTSIDE RECORDS SUMMARY | 2025-01-28 09:11 | XMS_ITS | Clinical Summary ---
Author Organization [facility] Address [address] [place] [address] Phone Care Team Providers Care High School Physical Education Teacher Name Role Phone Unavailable Primary Care Provider Unavailabl e Social History Tobacco Use Types Packs/Day Years Used Date Smoking Tobacco: Never Assessed Sex and Gender Information Value Date Recorded Sex Assigned at Not on file Legal Sex Male 2:25 PM EDT Gender Identity Not on file Sexual Orientation Not on file Plan of Treatment Upcoming Encounters Date Type Department Care Team ([facility] st Contact Info) Description 03/08/2025 1:00 PM EDT Appointment [facility] Xray [address] [place] [address] Health Maintenance Due Date Last [...] patient's age to complete this topic Insurance [facility] JUAN MANUEL GONZALEZ [id number]
--- OUTSIDE RECORDS SUMMARY | 2025-01-28 09:11 | XMS_ITS | Clinical Summary ---
Author Organization [employer] Address [address] [place] [address] Care Team Providers Care Admitting Supervisor Name Role Phone Unavailable Primary Care [...] Alcohol/Substance Use Screening 1957 Tobacco Screening 1957 DTaP/Tdap/Td Vaccines (1 - Tdap) 01/05/1964 Pneumococcal [...] patient's age to complete this topic Insurance [facility] SCO
== END 2025-01-28 09:19 | disposition home or self-care (01) ==
LOC: HO.HGS 08:57
PROVIDERS: PCP Internal Medicine; Visit Provider Surgery
DX: R92.8 Other abnormal and inconclusive findings on diagnostic imaging of breast (principal)
CPT/HCPCS: 99213

== ENCOUNTER → 2025-01-28 08:56 | Outpatient (BNVA) | payer OTHER, SELFPAY | PROVIDERS: PCP Internal Medicine; Visit Provider Surgery | DX: R92.8 Other abnormal and inconclusive findings on diagnostic imaging of breast (principal) | CPT/HCPCS: 99212 ==

== ENCOUNTER 2025-02-16 15:00 | Outpatient (RCR) | payer OTHER, SELFPAY ==
--- NOTE | 2025-02-23 13:04 | MHC.SL.SOA ---
Referring Provider: Jacob Vale MD Reason for Referral: dysarthria, anarthria, and slurred speech Date of Plan of Treatment:01/04/25 Onset of Symptoms/Illness:06/22/24 Date Treatment Started:01/04/25 Medical Diagnosis: Primary Speech Language Diagnosis: Anomia Secondary Speech Language Diagnosis:I69.911 Memory deficit Number of Authorized Visits Remaining: Authorization End Date: Reason for Visit:03007 Individual Treatment Other: Subjective:Brittany was on time for today's session, independently ambulating with a walker, having been dropped off by her son for this appointment. Brittany again expressed concern about her medical chart indicating she has Dementia and how that affects her relationship with her children (e.g. they don't trust her competence) and judgement from medical office receptionist assistant. She again said she wanted to be tested. While today's session was focused on completing the type of cognitive assessment a Speech Therapist can administer, she was cautioned that this is a limited screening evaluation, and that real estate paralegal cannot diagnose types of dementia nor their degree of functional impairment. She expressed interest and requested this DIELECTRIC PRESS OPERATOR recommend a Neuropsychological evaluation referral from her provider for more in depth assessment and understanding of her needs. Objective: Brittany was administered visual and attentional subtests of the RBANS-A which completed this assessment with full results reported below. Assessment:Goal 1.1 The Repeatable Battery for the Assessment of Neuropsychological Status (RBANS-Update Form A) was used to assess aspects of cognitive memory, language and attention skills. The RBANS is considered a screening battery for adult cognitive function, and is repeatable for the purpose of evaluating any changes in function. Composite domains assessed in this evaluation are: Immediate Memory; Visuospatial/Constructional; Language; Attention; and Delayed Memory. Domain index scores and percentile ranking are the following: Subtest/Domain Immediate Memory: Index Score: 83; Percentile: 14 Visuospatial/Constructional: Index Score: 78 ; Percentile: 4 Language: Index Score: 68; Percentile: 1.5 Attention: Index Score: 60; Percentile: .4 Delayed Memory: Index Score: 81; Percentile 10 TOTAL TEST: Index Score: 61; Percentile 1 Impressions/Summary: Brittany on assessment presents with a mild to moderate global impairment of cognitive function, however this testing and results must be interpreted with significant caution. Brittany has a number of issues that would impact test results and scorin. She has been diagnosed with a mild anomic aphasia (word finding difficulty), which would affect immediate retrieval of words and generative production of words, which are two prominent subtests on this evaluation; 2. She has reported a life long history of dyslexia, which is a form of a visual processing and/or language deficit, which also likely influenced test results; 3. She left school at approximately age 12, completing only a 6th grade education, which was clearly an issue when trying to understand a task requiring her to label line segments using a compass oakley on this test. It is, however, likely Brittany has some general, age related weakness with her memory, and she may find some visual tasks or interpretation of visual information confusing. She would benefit from intervention to help her increase her awareness of the nature of these types of cognitive challenges and strategies she can use to compensate. Brittany was advised of these conclusion and testing was reviewed with her at the end of today's session. Notes: Plan: Goal # : STG 1.1 Brittany will complete a standardized assessment for cognition (such as CLQT+ or RBANS) with 100% completion to better inform goals in the area of attention and memory. Status of Goal: Goal # : STG 2.1 Brittany will independently recall clear speech strategies with 100% accuracy. STG 2.2 Brittany will produce clear speech at the word level in structured practice in 80% of trials with moderate support. Status of Goal: Goal # : STG 3.1 Brittany will name functional items with moderate support (i.e. phonemic cues) with 80% accuracy during confrontational naming tasks. STG 3.2 Brittany will contribute 6 features of semantic feature analysis with target word with minimal clinician support Status of Goal: Goal # : STG 4.1 When given a 3-word list, Brittany will recall list upon immediate recall in 80% of opportunities when provided with moderate assistance. STG 4.2 When given a 3-word list, Brittany will recall list upon delayed recall in 80% of opportunities when provided with moderate assistance. Status of Goal: Seen by: Graduate/Clinical Fellow: No Supervisory Statement: f_Reg Query Last Value , MHC.AU.SIGNAT Speech Language Pathologist: Sohnda Carreon M.A., [facility]-DIELECTRIC PRESS OPERATOR
== END 2025-02-23 14:56 | disposition still patient (30) ==
LOC: HO.SH 15:00
PROVIDERS: Visit Provider Internal Medicine
DX: R47.1 Dysarthria and anarthria (principal); R47.81 Slurred speech
CPT/HCPCS: 92507

== ENCOUNTER 2025-02-23 14:22 | Outpatient (REF) | payer OTHER, SELFPAY ==
--- OUTSIDE RECORDS SUMMARY | 2025-02-23 14:27 | XMS_ITS | Clinical Summary ---
Author Organization [facility] Address [address] [place] [address] Phone Care Team Providers Care Registered Mail Clerk Name Role Phone Unavailable Primary Care Provider Unavailabl e Social History Tobacco Use Types Packs/Day Years Used Date Smoking Tobacco: Never Assessed Sex and Gender Information Value Date Recorded Sex Assigned at Not on file Legal Sex Male 2:25 PM EDT Gender Identity Not on file Sexual Orientation Not on file Plan of Treatment Upcoming Encounters Date Type Department Care Team ([facility] st Contact Info) Description 03/08/2025 1:00 PM EDT Appointment [facility] Xray [address] [place] [address] Health Maintenance Due Date Last [...] patient's age to complete this topic Insurance [facility] JUAN MANUEL GONZALEZ [id number]
[2025-02-23 14:37] LABS: MANUAL DIFF FLAG NO
[2025-02-23 15:34] LABS: Appearance Urine Cloudy; Color Urine Dark Yellow; Glucose Urine UA Negative (Negative); Leukocyte Esterase Urine Moderate (2+) (Negative); Nitrite Urine Positive (Negative); Specific Gravity - Urine >= 1.030 (1.005-1.025); UMIC TRIGGER UACC YES; Urine Blood Trace (Negative); Urine Ketones Trace mg/dL (Negative); Urine Protein 30 (1+) mg/dL (Neg-Trace)
[2025-02-23 15:44] LABS: Bacteria Urine 4+ (None Seen); RBC Urine 0-2 /HPF (0-2); UACC Culture Trigger YES
[2025-02-23 15:49] LABS: Basophils Percent Auto 0.3 % (0-2); Eosinophils Absolute Auto 0.1 X10*3/uL (0.0-0.4); Eosinophils Percent Auto 0.5 % (0-4); Hematocrit 37.6 % (37.0-47.0); Hemoglobin 12.3 g/dl (12.0-16.0); Imm Gran Abs Auto 0.03 X10*3/uL (0.00-0.03); Imm Gran Pct Auto 0.3 % (0.0-0.4); Mean Corpuscular HGB Conc 32.7 g/dl (31.0-35.0); Mean Corpuscular Hemoglobin 32.4 pg (27.0-33.0); Mean Corpuscular Volume 98.9 fL (80.0-98.0); Mean Platelet Volume 9.6 fL (9.4-12.3); Monocytes Absolute Auto 0.5 X10*3/uL (0.1-1.2); Monocytes Percent Auto 4.8 % (2-11); Neutrophils Absolute Auto 7.7 x10*3/uL (2.0-8.3); Neutrophils Percent Auto 83.1 % (45-73); Platelet Count 201 X10*3/uL (160-400); Red Cell Distribution Width 13.2 % (11.0-16.0); White Blood Count 9.3 X10*3/uL (4.8-10.8)
[2025-02-23 16:15] LABS: Alanine Aminotransferase 23 U/L (0-31); Albumin Level 4.3 g/dL (3.5-5.0); Alkaline Phosphatase 71 U/L (39-117); Anion Gap 11 (12-20); Aspartate Amino Transferase 36 U/L (5-31); Bilirubin Total 0.5 mg/dL (0.0-1.0); Blood Urea Nitrogen 19 mg/dL (9-16); Calcium 9.6 mg/dL (8.4-10.2); Carbon Dioxide 29 mmol/L (22-29); Chloride 106 mmol/L (96-108); Cholesterol 114 mg/dL (<200); Estimated Glomerular Filt Rate 46; Glucose Fasting 89 mg/dL (60-99); HDL Cholesterol 63 mg/dL (>40); LDL Cholesterol Calculated 43 mg/dL (<100); Potassium 4.5 mmol/L (3.3-5.1); Sodium 141 mmol/L (135-145); Total Protein 7.7 g/dL (6.5-8.0); Triglycerides 41 mg/dL (<150)
[2025-02-25 21:18] LABS: TS Negative Control Passed; TS Panel A 0; TS Panel B 0; TS Positive Control Passed; TSpotTB Negative (Negative)
== END 2025-02-23 14:23 | disposition home or self-care (01) ==
LOC: HO.LAB 14:22
PROVIDERS: PCP Internal Medicine; Visit Provider Internal Medicine
DX: D64.9 Anemia, unspecified (principal); E78.00 Pure hypercholesterolemia, unspecified; N39.0 Urinary tract infection, site not specified; Z11.1 Encounter for screening for respiratory tuberculosis; B96.1 Klebsiella pneumoniae [K. pneumoniae] as the cause of diseases classified elsewhere
CPT/HCPCS: 36415; 80053; 80061; 81001; 85025; 86481; 87086; 87088; 87186

== ENCOUNTER 2025-03-03 14:02 | Outpatient (AMB) | payer OTHER, SELFPAY ==
--- NOTE | 2025-03-03 14:04 | MHC.OFFVIS ---
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 History of Right Hip CRPP & Left IM Nail done in [place]. Patient reports that she has pain in bilateral hips and left knee since the surgery. 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 She comes in today complaining of bilateral lateral hip pain. She denies groin pain. She states when she walks she needs to use a walker and she has difficulty beginning ambulation and maintaining it. She localizes the pain mostly to her left greater trochanter. [facility] Medical History Dysarthria Ataxia Overweight (BMI 25.0-29.9) Bipolar 1 disorder GERD without esophagitis Allergic rhinitis Dementia Anxiety Osteoporosis Pure hypercholesterolemia Essential hypertension Depression Arthritis Surgical History History of cataract extraction History of Mabel-en-Y gastric bypass History of arthroplasty of right shoulder History of total hip arthroplasty History of total knee arthroplasty Hx of arthroscopic knee surgery Family History Other FH: mental illness Substance abuse Social History Household Members: Family Housing: House Do you presently have visiting nurse or other home services: No Alcohol intake: never Patient Tobacco Use Status: Former Tobacco user e-Cigarette/Vaping Use: Never Used Second Hand Smoke Exposure: Yes service: No Current occupational status: unemployed Current occupational exposures/hazards: No Cognitive needs: Yes (walker, cane) Hearing needs: No Vision needs: Yes (glasses) Female Reproductive History Menstrual Age of Menarche: 9 Physical Exam Extrem Other: On exam she has mild tenderness over the right greater trochanter and no groin pain with hip range of motion. On the left her range of motion is limited but the pain both on palpation and with motion localizes to the greater trochanter and surrounding soft tissues. She has bilateral knee replacements and does complain of bilateral knee pain but the incisions are clean dry and intact and her motion seems good with no effusion. Office Procedures Joint Inj/Aspir; Non-Pain Clin Joint Injection/Drain Details: Injected 1 mL of Decadron and 3 mL 1% lidocaine and 3 mL of 0.25% Marcaine. Site was prepped using aseptic technique. Patient tolerated the procedure well. Shoulders, Hips, Knees, Hip Injection Large Joint : Left Hip (greater trochanter) Coding Procedure code (CPT) selection complete Results Reviewed Results Reviewed: I personally reviewed relevant radiographs. On the left she has 3 cannulated screws traversing a healed femoral neck fracture presumably. These are in excellent position and there are no hardware complications. On the left she has a healed intertrochanteric femur fracture with abundant bony healing around the calcar and over the greater trochanter. There does not appear to be any prominent hardware in the hardware is in acceptable position. Assessment & Plan Assessment & Plan (1) Retained orthopedic hardware: Code(s): Z96.9 - Presence of functional implant, unspecified Category: Medical Plan: This is an 80-year-old woman status post bilateral hip fractures and successful operative fixation. Her primary pain generator is likely greater trochanteric bursitis and abductor tendon dysfunction secondary to trauma. I injected her greater trochanter. I do not recommend surgery for her I do not recommend removal of hardware. I explained this to her. I am happy to repeat injections if they are helpful. Coding Level of Care Code New Pt Level 3 (56092) Diagnoses Retained orthopedic hardware Z96.9 CPT Codes Shoulders, Hips, Knees, - Hip Injection Large Joint : Left Hip ([id number])
--- OUTSIDE RECORDS SUMMARY | 2025-03-03 16:36 | XMS_ITS | Clinical Summary ---
Author Organization [facility] Address [address] [place] [address] Phone Care Team Providers Care Physician Assistant Surgery Name Role Phone Unavailable Primary Care Provider Unavailabl e Social History Tobacco Use Types Packs/Day Years Used Date Smoking Tobacco: Never Assessed Sex and Gender Information Value Date Recorded Sex Assigned at Not on file Legal Sex Male 2:25 PM EDT Gender Identity Not on file Sexual Orientation Not on file Plan of Treatment Upcoming Encounters Date Type Department Care Team ([facility] st Contact Info) Description 03/08/2025 1:00 PM EDT Appointment [facility] Xray [address] [place] [address] Health Maintenance Due Date Last [...] patient's age to complete this topic Insurance [facility] [id number] MEDICAID - [place] [employer] MEDICARE Member Subscriber Plan / Payer (Ef fective 2024-Present) Name:TEDDY POLLARD Member ID:[id number] Relation to Subscriber:Self Name:Teddy Pollard Subscriber ID:[id number] Payer ID:[id number] Group ID:Not on file Type:Not on file Address: [address] [place] [address]
== END 2025-03-03 15:01 | disposition home or self-care (01) ==
LOC: HO.HOS 14:03
PROVIDERS: PCP Internal Medicine; Visit Provider Orthopaedic Surgery
DX: Z96.9 Presence of functional implant, unspecified (principal); Z96.643 Presence of artificial hip joint, bilateral
CPT/HCPCS: 20610; 99203

== ENCOUNTER → 2025-03-03 14:02 | Outpatient (BNVA) | payer OTHER, SELFPAY | PROVIDERS: PCP Internal Medicine; Visit Provider Orthopaedic Surgery | DX: M70.62 Trochanteric bursitis, left hip (principal); Z96.653 Presence of artificial knee joint, bilateral | CPT/HCPCS: 20610; 99202; J0665; J1100; J2003 ==

== ENCOUNTER 2025-03-12 18:04 | Emergency (ER) | payer OTHER, SELFPAY ==
--- NOTE | ~2025-03-12 | CT_ITS ---
CLINICAL HISTORY: head strike, dizzy, difficulty ambulating CT head without contrast. COMPARISON: MR brain dated 10/17/24 at 20:[address] head dated 10/17/24 at 15:59 EST FINDINGS: The visualized paranasal sinuses are clear. Small amount of fluid present at the base of the right mastoid air cells, similar to prior imaging. No calvarial fracture. Atherosclerotic intracranial vasculature. No evidence for mass or mass effect. No intracranial hemorrhage or abnormal extra-axial fluid collection. The ventricles are proportional with the degree of mild global cerebral volume loss without evidence of hydrocephalus. Basilar cisterns are patent. There are periventricular areas of low attenuation compatible with mild white matter small vessel disease. Posterior fossa appears unremarkable. IMPRESSION: 1. No acute intracranial findings. This document has been electronically signed by: Esa Brice MD on 03/12/2025 19:21:26
--- NOTE | ~2025-03-12 | CT_ITS ---
CLINICAL HISTORY: neck trauma CT cervical spine without contrast. COMPARISON: CT cervical spine dated 10/18/24 at 14:40 EST FINDINGS: Reversal of normal cervical lordosis. Mild levocurvature of the lower cervical spine. Grade 1 anterolisthesis of C3 on C4, degenerative and stable. Vertebral body heights are maintained. No evidence of acute vertebral body injury. Schmorl's node at the superior endplate of T3. Skull base and intracranial structures appear normal. Calcified plaque present at the carotid bulbs bilaterally. Small tracheal diverticulum present at the thoracic inlet. C2-C3: Facet joint arthrosis. No significant neural foraminal narrowing. C3-C4: Anterior marginal osteophytes. Facet joint arthrosis. Uncovertebral joint hypertrophy. Moderate right neural foraminal narrowing. C4-C5: Anterior marginal osteophytes. Loss of disc space height. Uncovertebral joint hypertrophy. Facet joint arthrosis. Lbeofngs-gh-ynrbst left and mild right neural foraminal narrowing. C5-C6: Anterior marginal osteophytes. Loss of disc space height. Posterior disc osteophyte complex. Uncovertebral joint hypertrophy. Moderate spinal canal stenosis at this level. Severe right and mild left neural foraminal narrowing. C6-C7: Anterior marginal osteophytes. Uncovertebral joint hypertrophy. Posterior disc osteophyte complex. Moderate left and mild right neural foraminal narrowing. IMPRESSION: 1. No evidence of acute injury to the cervical spine. 2. Straightening with reversal of the normal cervical lordosis, stable. 3. Grade 1 anterolisthesis of C3 on C4, degenerative and stable. 4. Advanced multilevel cervical spondylosis. This document has been electronically signed by: Esa Brice MD on 03/12/2025 19:21:16
[2025-03-12 18:12] VITALS: BP 115/45; PULSE 63; RESP 16; TEMP 36.5; O2SAT 94; BMI 25.7
--- NOTE | 2025-03-12 18:18 | ED.FALL ---
HPI - Fall General Chief Complaint: Fall Stated Complaint: fell needs scan-sent in by PCP Time Seen by Provider: 03/12/25 18:26 Source: patient and family (Daughter) Mode of arrival: ambulatory Limitations: no limitations History of Present Illness ED Provider: Dr. Mitchel George HPI Narrative: 80-year-old female with a history of hypertension, hyperlipidemia, osteoporosis, dementia bipolar disorder, GERD with esophagitis, dementia, anxiety, depression, hypercholesterolemia, hypertension who presents emergency department for evaluation of fall. The patient states that she was walking from her kitchen to a chair when she had a sudden syncopal episode. The patient fell backwards and struck her head. She had a brief loss of consciousness. She states that after the fall she developed a headache in the back of her head which is 8/10. The patient has had multiple syncopal episodes and had at least 3 falls in [place] with a hip fracture. She moved back to the [place] area to live with her daughter for around 7 months prior. Patient has been seen by Dr. Bennett her syncopal episodes and he felt the patient had orthostatic hypotension possibly related to her medications. Family reports that the patient had patient a positive tilt-table test but he has not followed up with her PCP yet. The patient has also been seen by Neurology in his had a workup which was unremarkable. Daughter states the patient has been eating well. The patient did have a urinary tract infection 2 weeks prior. Related Data Home Medications ?Medication ?Instructions ?Recorded ?Confirmed albuterol sulfate 90 mcg/actuation 2 puff inhalation Q4-6H PRN 09/03/24 01/19/25 aerosol inhaler Shortness Of Breath Or Wheezing buspirone 10 mg tablet 20 mg PO BID 10/18/24 01/19/25 venlafaxine 225 mg tablet,extended 225 mg PO DAILY 10/18/24 01/19/25 release 24 hr Previous Rx's ?Medication ?Instructions ?Recorded nitrofurantoin macrocrystal 100 mg 100 mg PO BID 5 days #10 caps 12/01/24 capsule lamotrigine 200 mg tablet 200 mg PO DAILY 30 days #30 tabs 12/05/24 bupropion HCl 150 mg 24 hr tablet, 150 mg PO DAILY 90 days #90 tabs 12/07/24 extended release atorvastatin 80 mg tablet 80 mg PO DAILY #90 tabs 12/08/24 pantoprazole 40 mg tablet,delayed 40 mg PO DAILY@0630 #90 tabs 12/08/24 release Magic Mouthwash 20 ml PO Q3H PRN mouth pain #240 mL 12/10/24 Diphen/Lido/Antacid 1:1:1 240 mL suspension fluticasone propionate 50 1 spray intranasal DAILY PRN Nasal 12/10/24 mcg/actuation nasal Congestion #48 grams spray,suspension ibandronate 150 mg tablet 150 mg PO Q28D 3 months #4 tabs 12/10/24 lamotrigine 25 mg tablet 50 mg (2 x 25 mg) PO DAILY #60 tabs 12/17/24 cariprazine 3 mg capsule (Vraylar) 3 mg PO DAILY 30 days #30 caps 12/24/24 memantine 10 mg tablet 20 mg (2 x 10 mg) PO DAILY #90 tabs 01/03/25 nifedipine 30 mg tablet,extended 30 mg PO DAILY #90 tabs 01/03/25 release meclizine 25 mg tablet 25 mg PO BEDTIME PRN vertigo #90 02/09/25 tabs famotidine 20 mg tablet 40 mg (2 x 20 mg) PO DAILY PRN 03/03/25 Acid Reflux #90 tabs ciprofloxacin HCl 500 mg tablet 500 mg PO BID 5 days #10 tabs 03/04/25 cyclobenzaprine 10 mg tablet 10 mg PO BEDTIME muscle spasm 90 03/11/25 days #90 tabs Allergies Allergy/AdvReac Type Severity Reaction Status Date / Time No Known Allergies Allergy Verified 03/12/25 18:18 Review of Systems Review of Systems: Yes all other systems are reviewed and are negative [facility] Past Medical History [facility] Narrative: Social history: The patient is living with her daughter. She denies tobacco, alcohol and drug use Medical History Dysarthria Ataxia Overweight (BMI 25.0-29.9) Bipolar 1 disorder GERD without esophagitis Allergic rhinitis Dementia Anxiety Osteoporosis Pure hypercholesterolemia Essential hypertension Depression Arthritis Surgical History History of cataract extraction History of Mabel-en-Y gastric bypass History of arthroplasty of right shoulder History of total hip arthroplasty History of total knee arthroplasty Hx of arthroscopic knee surgery Family History Family History Other FH: mental illness Substance abuse Social History Social History Household Members: Family Housing: House Do you presently have visiting nurse or other home services: No Alcohol intake: never Patient Tobacco Use Status: Former Tobacco user e-Cigarette/Vaping Use: Never Used Second Hand Smoke Exposure: Yes Advance Directives: Yes Advance Directives on File: Yes Advance Directives Date on File: 10/19/24 Do you have a plan to hurt others: No Plan service: No Current occupational status: unemployed Current occupational exposures/hazards: No Cognitive needs: Yes (walker, cane) Hearing needs: No Vision needs: Yes (glasses) Physical Exam Vital Signs: Vital Signs: Last Vital Signs Temp 97.7 F 03/12/25 18:12 Pulse 66 03/12/25 20:04 Resp 18 03/12/25 20:04 BP 112/56 L 03/12/25 20:04 Pulse Ox 94 03/12/25 20:04 O2 Del Method Room Air 03/12/25 20:04 BMI result Body Mass Index 25.7 Vital signs were normal Exam: General: Awake, alert in no distress Head: Normocephalic, tenderness palpation of the posterior scalp with no hematomas or bleeding noted EENT: PERRL, Lids normal, sclera normal, conjunctiva normal, nose normal , ears normal, throat without erythema or exudates Neck: Tenderness palpation of C-spine and trapezius muscles Lung: breath sounds symmetric, no wheezing, rales or rhonchi Chest: symmetric movement, nontender Heart: regular rate and rhythm, normal S1, S2 no murmurs or rubs Abdomen: soft, non-tender, nondistended, normal bowel sounds Back: no vertebral tenderness, no CVAT Extremities: no deformities, not able to lift right arm very high secondary to right shoulder surgery Neuro: Awake, alert, oriented, normal speech, cranial nerves intact, normal upper and lower extremity strength Psych: Pleasant, cooperative Course Course Course Narrative: This is an RME: Additional HPI, ROS, PE not included below will be deferred to primary provider. RME assessment and note performed by: Mitzi Rustam, PA-C This is a [id number]-female who presents to the ER with complaints of headache, dizziness, difficulty walking s/p fall which occurred this afternoon. Fall was unwitnessed, pt reports brief LOC. Reporting since she is having headache, dizziness. Unsure why she fell. Unable to perform pronator drift due to chronic right shoulder pain. no focal deficits on exam - in wheelchair unable to assess gait. Plan: Labs, CT head to r/o ICH, EKG, further ER eval needed Medications Administered Discontinued Medications Generic Name Dose Route Start Last Admin Trade Name Freq PRN Reason Stop Dose Admin Acetaminophen 1,000 mg in 100 mls @ 400 mls/hr 03/12/25 19:16 03/12/25 19:44 Ofirmev IV 03/12/25 19:30 400 mls/hr ONCE ONE Administration Medical Decision Making Medical Decision Making MDM Narrative: 80-year-old female with a history of hypertension, hyperlipidemia, osteoporosis, dementia bipolar disorder, GERD with esophagitis, dementia, anxiety, depression, hypercholesterolemia, hypertension who presents emergency department for evaluation of fall. The patient states that she was walking from her kitchen to a chair when she had a sudden syncopal episode. The patient fell backwards and struck her head. She had a brief loss of consciousness. She states that after the fall she developed a headache in the back of her head which is 8/10. The patient has had multiple syncopal episodes and had at least 3 falls in [place] with a hip fracture. She moved back to the [place] area to live with her daughter for around 7 months prior. Patient has been seen by Dr. Bennett her syncopal episodes and he felt the patient had orthostatic hypotension possibly related to her medications. Family reports that the patient had patient a positive tilt-table test but he has not followed up with her PCP yet. The patient has also been seen by Neurology in his had a workup which was unremarkable. Daughter states the patient has been eating well. The patient did have a urinary tract infection 2 weeks prior. Vital signs were normal. Exam did reveal tenderness palpation of her posterior scalp, cervical spine, trapezius muscles. Differential diagnosis: ?Includes but is not limited to myocardial infarction, myocardial ischemia, arrhythmia, orthostatic hypotension, anemia, electrolyte abnormalities Course: 21:18 My independent interpretation patient's laboratory evaluation is as follows: WBC was normal 6500. Normocytic anemia with an H&H of 10 and 31.2. BUN was elevated 24 with a normal creatinine. Bicarb was low 21. AST elevated 38. Troponin below detectable limits. CT scan of the head and neck revealed no acute fractures or bleed which is reassuring. Patient was not orthostatic by pulse or by blood pressure. Patient was given acetaminophen 1 g IV with some improvement of her headache. She was also given normal saline 1 L IV. At this time, I do not think that the patient needs to be admitted since she has had multiple syncopal episodes with an extensive workup. Patient will be discharged home in the care of her family. Admission/Observation Consideration of admission/observation: Escalation of care including admission/observation considered (Yes) Lab Data MDM Lab Attestation statement: I reviewed the patient's lab results. 03/12/25 19:12 03/12/25 19:12 Labs: Lab Results 03/12/25 Range/Units 19:12 WBC 6.5 (4.8-10.8) X10*3/uL RBC 3.26 L (4.20-5.50) X10*6/uL Hgb 10.7 L (12.0-16.0) g/dl Hct 31.2 L (37.0-47.0) % MCV 95.7 (80.0-98.0) fL MCH 32.8 (27.0-33.0) pg MCHC 34.3 (31.0-35.0) g/dl RDW 12.9 (11.0-16.0) % Plt Count 183 (160-400) X10*3/uL MPV 9.4 (9.4-12.3) fL Immature Gran % (Auto) 0.3 (0.0-0.4) % Neut % (Auto) 62.7 (45-73) % Lymph % (Auto) 27.7 (20-40) % Trigg % (Auto) 7.8 (2-11) % Eos % (Auto) 1.2 (0-4) % Baso % (Auto) 0.3 (0-2) % Lymph # (Auto) 1.8 (1.2-4.9) X10*3/uL Trigg # (Auto) 0.5 (0.1-1.2) X10*3/uL Eos # (Auto) 0.1 (0.0-0.4) X10*3/uL Baso # (Auto) 0.0 (0.0-0.2) X10*3/uL Abs Immat Gran (auto) 0.02 (0.00-0.03) X10*3/uL Absolute Neuts (auto) 4.1 (2.0-8.3) x10*3/uL Absolute Nucleated RBC 0.000 (0.0-0.012) X10*3/uL Nucleated RBC % (auto) 0.0 (0.0-0.2) /100WBC PT 11.4 (10.9-12.4) SEC INR 1.0 (0.9-1.1) APTT 30.1 (26.0-36.8) SEC Sodium 137 (135-145) mmol/L Potassium 4.8 (3.3-5.1) mmol/L Chloride 107 (96-108) mmol/L Carbon Dioxide 21 L (22-29) mmol/L Anion Gap 14 (12-20) BUN 24 H (9-16) mg/dL Creatinine 0.83 (0.5-1.4) mg/dL Estim Creat Clear Calc 51.2 Estimated GFR > 60 Random Glucose 77 (60-115) mg/dL Calcium 8.9 D (8.4-10.2) mg/dL Magnesium 2.1 (1.6-2.6) mg/dL Total Bilirubin 0.3 (0.0-1.0) mg/dL Direct Bilirubin 0.1 (0.0-0.5) mg/dL AST 38 H (5-31) U/L ALT 17 (0-31) U/L Alkaline Phosphatase 57 (39-117) U/L Troponin I High Sens < 2.7 (<3.5-17.0) ng/L Total Protein 6.9 (6.5-8.0) g/dL Albumin 3.8 (3.5-5.0) g/dL Radiology Impression Discussion of test interpretation with radiology: I have reviewed the radiologist's reading. Radiologist Impression: CT head without contrast. COMPARISON: MR brain dated 10/17/24 at 20:[address] head dated 10/17/24 at 15:59 EST FINDINGS: The visualized paranasal sinuses are clear. Small amount of fluid present at the base of the right mastoid air cells, similar to prior imaging. No calvarial fracture. Atherosclerotic intracranial vasculature. No evidence for mass or mass effect. No intracranial hemorrhage or abnormal extra-axial fluid collection. The ventricles are proportional with the degree of mild global cerebral volume loss without evidence of hydrocephalus. Basilar cisterns are patent. There are periventricular areas of low attenuation compatible with mild white matter small vessel disease. Posterior fossa appears unremarkable. IMPRESSION: 1. No acute intracranial findings. This document has been electronically signed by: Esa Brice MD on 03/12/2025 19:21:26 CT cervical spine without contrast. COMPARISON: CT cervical spine dated 10/18/24 at 14:40 EST IMPRESSION: 1. No evidence of acute injury to the cervical spine. 2. Straightening with reversal of the normal cervical lordosis, stable. 3. Grade 1 anterolisthesis of C3 on C4, degenerative and stable. 4. Advanced multilevel cervical spondylosis. This document has been electronically signed by: Esa Brice MD on 03/12/2025 19:21:16 Independent Historian Clinical information obtained from an independent historian. History obtained from or confirmed by: Other (Daughter) External Record Review External record reviewed: Inpatient record and Office record Discharge Plan Discharge Clinical Impression: Syncope Qualifiers: Encounter type: initial encounter Closed head injury Qualifiers: Encounter type: initial encounter Qualified Code(s): S09.90XA - Unspecified injury of head, initial encounter Headache Qualifiers: Headache chronicity pattern: acute headache Scalp contusion Qualifiers: Encounter type: initial encounter Qualified Code(s): S00.03XA - Contusion of scalp, initial encounter Patient Disposition: Home, Self-Care Instructions: Head Injury (ED) Additional Instructions: Your blood pressure and pulse did not change from lying, sitting to standing. Your blood work revealed mild anemia but otherwise was unremarkable. The CT scan of your head and neck did not reveal any skull fractures, bleeding in the brain or neck fractures. At this time, I do not have a clear cause for your passing out but it may be related to orthostatic hypotension (blood pressure that drops when you stand up) especially if you had a positive tilt-table test. Continue taking your medications as prescribed by your providers. Increase the amount of fluid that you drink to prevent dehydration. Take Tylenol 500 mg pills, 2 pills every 6 hours as needed for headache. Follow-up with your doctor in 2 days. Please return to the emergency department if your symptoms get worse or if you develop any symptoms that are concerning to you. Prescriptions: No Action nitrofurantoin macrocrystal 100 mg capsule 100 mg PO BID 5 Days Qty: 10 0RF Rx Instructions: must administer with a meal/food lamotrigine 200 mg tablet 200 mg PO DAILY 30 Days Qty: 30 0RF bupropion HCl 150 mg tablet extended release 24 hr 150 mg PO DAILY 90 Days Qty: 90 0RF atorvastatin 80 mg tablet 80 mg PO DAILY Qty: 90 1RF pantoprazole 40 mg tablet,delayed release (DR/EC) 40 mg PO DAILY@0630 Qty: 90 1RF Magic Mouthwash Diphen/Lido/Antacid 1:1:1 240 mL suspension 20 ml PO Q3H PRN (Reason: mouth pain) Qty: 240 0RF Rx Instructions: Lidocaine Viscous 2 % 80mL; diphenhydramine 12.5 mg/5 mL 80mL; aluminum-mag hydrox-simeth [id number]/5mL 80mL lamotrigine 25 mg tablet 50 mg PO DAILY Qty: 60 0RF Rx Instructions: Taken together with Lamotrigine 200 mg for a total of 250 mg daily dose Vraylar 3 mg capsule 3 mg PO DAILY 30 Days Qty: 30 1RF memantine 10 mg tablet 20 mg PO DAILY Qty: 90 0RF meclizine 25 mg tablet 25 mg PO BEDTIME PRN (Reason: vertigo) Qty: 90 1RF famotidine 20 mg tablet 40 mg PO DAILY PRN (Reason: Acid Reflux) Qty: 90 0RF ciprofloxacin HCl 500 mg tablet 500 mg PO BID 5 Days Qty: 10 0RF cyclobenzaprine 10 mg tablet 10 mg PO BEDTIME 90 Days Qty: 90 0RF venlafaxine 225 mg tablet extended release 24hr 225 mg PO DAILY buspirone 10 mg Tablet 20 mg PO BID albuterol sulfate 90 mcg/actuation HFA aerosol inhaler 2 puff inhalation Q4-6H PRN (Reason: Shortness Of Breath Or Wheezing) nifedipine 30 mg tablet extended release 30 mg PO DAILY Qty: 90 1RF ibandronate 150 mg tablet 150 mg PO Q28D 90 Days Qty: 4 3RF fluticasone propionate 50 mcg/actuation spray,suspension 1 spray intranasal DAILY PRN (Reason: Nasal Congestion) Qty: 48 1RF Rx Instructions: administer into each nostril Print Language: Cameroonian
[2025-03-12 19:26] LABS: MANUAL DIFF FLAG NO
[2025-03-12 19:28] LABS: Basophils Percent Auto 0.3 % (0-2); Eosinophils Absolute Auto 0.1 X10*3/uL (0.0-0.4); Eosinophils Percent Auto 1.2 % (0-4); Hematocrit 31.2 % (37.0-47.0); Hemoglobin 10.7 g/dl (12.0-16.0); Imm Gran Abs Auto 0.02 X10*3/uL (0.00-0.03); Imm Gran Pct Auto 0.3 % (0.0-0.4); Lymphocytes Absolute Auto 1.8 X10*3/uL (1.2-4.9); Lymphocytes Percent Auto 27.7 % (20-40); Mean Corpuscular HGB Conc 34.3 g/dl (31.0-35.0); Mean Corpuscular Hemoglobin 32.8 pg (27.0-33.0); Mean Corpuscular Volume 95.7 fL (80.0-98.0); Mean Platelet Volume 9.4 fL (9.4-12.3); Monocytes Absolute Auto 0.5 X10*3/uL (0.1-1.2); Monocytes Percent Auto 7.8 % (2-11); Neutrophils Absolute Auto 4.1 x10*3/uL (2.0-8.3); Neutrophils Percent Auto 62.7 % (45-73); Platelet Count 183 X10*3/uL (160-400); Red Blood Count 3.26 X10*6/uL (4.20-5.50); Red Cell Distribution Width 12.9 % (11.0-16.0); White Blood Count 6.5 X10*3/uL (4.8-10.8)
[2025-03-12 19:33] VITALS: BP 120/46; PULSE 68
[2025-03-12 19:34] LABS: Prothrombin Time 11.4 SEC (10.9-12.4)
[2025-03-12 19:35] VITALS: BP 121/44; BP 131/50; PULSE 72; PULSE 76
[2025-03-12 19:36] LABS: Partial Thromboplastin Time 30.1 SEC (26.0-36.8)
[2025-03-12 19:44] LABS: Alanine Aminotransferase 17 U/L (0-31); Albumin Level 3.8 g/dL (3.5-5.0); Alkaline Phosphatase 57 U/L (39-117); Anion Gap 14 (12-20); Aspartate Amino Transferase 38 U/L (5-31); Bilirubin Direct 0.1 mg/dL (0.0-0.5); Bilirubin Total 0.3 mg/dL (0.0-1.0); Blood Urea Nitrogen 24 mg/dL (9-16); Calcium 8.9 mg/dL (8.4-10.2); Carbon Dioxide 21 mmol/L (22-29); Chloride 107 mmol/L (96-108); Creatinine Clr Calc Pharmacy 51.2; Estimated Glomerular Filt Rate > 60; Glucose Random 77 mg/dL (60-115); Magnesium 2.1 mg/dL (1.6-2.6); Potassium 4.8 mmol/L (3.3-5.1); Sodium 137 mmol/L (135-145); Total Protein 6.9 g/dL (6.5-8.0)
[2025-03-12] MEDS: Acetaminophen 1,000 MG/100 ML PIGGYBACK 400 MG IV (19:44)
[2025-03-12 19:49] LABS: Troponin-I High Sensitivity < 2.7 ng/L (<3.5-17.0)
[2025-03-12 20:04] VITALS: BP 112/56; PULSE 66; RESP 18; O2SAT 94
[2025-03-12 21:47] VITALS: BP 112/56; PULSE 66; RESP 18; TEMP 36.5; O2SAT 94
== END 2025-03-12 21:47 | disposition home or self-care (01) ==
PROVIDERS: Physician Assistant Medical; Emergency Provider Emergency Medicine Emergency Medical Services; PCP Internal Medicine
DX: R55 Syncope and collapse (principal); S09.90XA Unspecified injury of head, initial encounter; S00.03XA Contusion of scalp, initial encounter; W19.XXXA Unspecified fall, initial encounter; R51.9 Headache, unspecified; I10 Essential (primary) hypertension; E78.00 Pure hypercholesterolemia, unspecified; Z87.891 Personal history of nicotine dependence; Y93.9 Activity, unspecified; Y92.019 Unspecified place in single-family (private) house as the place of occurrence of the external cause; Y99.9 Unspecified external cause status
CPT/HCPCS: 36415; 70450; 72125; 80053; 82248; 83735; 84484; 85025; 85610; 85730; 96374; 99284; J0131

== ENCOUNTER → 2025-03-12 18:20 | Outpatient (BNV) | payer OTHER, SELFPAY | PROVIDERS: Emergency Provider Emergency Medicine Emergency Medical Services; PCP Internal Medicine; Visit Provider Radiology Diagnostic Radiology | DX: M47.892 Other spondylosis, cervical region (principal); G44.309 Post-traumatic headache, unspecified, not intractable | CPT/HCPCS: 70450; 72125 ==

== ENCOUNTER 2025-03-17 13:25 | Outpatient (AMB) | payer OTHER, SELFPAY ==
[2025-03-17 13:28] VITALS: BP 122/68; PULSE 77; BMI 28.0
--- NOTE | 2025-03-17 13:28 | A.OFFVIS_ITS ---
Vital Signs 03/17/25 13:28 Height 4 ft 11 in Weight 138 lb 14.259 oz BMI 28.0 BP 122/68 Blood Pressure Location Lt brachial Position Sitting Pulse 77 Pulse Source Pulse Oximeter Intake Visit Reasons: 6 week f/up tilt table Allergies No Known Allergies Allergy (Verified 03/12/25 18:18) Medication List - Last Reconciled 03/17/25 by Harris Bennett MD albuterol sulfate 90 mcg/actuation 2 puffs inhalation Q4-6H PRN atorvastatin 80 mg PO DAILY bupropion HCl XL 150 mg PO DAILY 90 days buspirone 20 mg PO BID cariprazine (Vraylar) 3 mg PO DAILY 30 days cyclobenzaprine 10 mg PO BEDTIME 90 days fluticasone propionate 50 mcg/actuation 1 spray intranasal DAILY PRN ibandronate 150 mg PO Q28D 3 months meclizine 25 mg PO BEDTIME PRN memantine 20 mg (2 x 10 mg) PO DAILY nifedipine ER 30 mg PO DAILY HPI Comments Details: Brittany returns for follow-up. Recently seen in consultation regarding question of vertigo/dizziness. She describes episodes of dizziness when she is getting up from bed or seated position. That is associated with a sensation of room spinning with in her head. She has had falls in the past. A neurologist at previously thought it could be vertigo. She has been on nifedipine for blood pressure. We would rather thought it was orthostatic hypotension and we cut back on the nifedipine from 60 mg to 30 mg. With that, it seems there is some improvement in her symptoms but she still had one further fall. She also went for a tilt-table test and that was indeed positive orthostatic hypotension. Otherwise, she does not have any overt symptoms like angina or in fact anything else of cardiac nature. Previously, she has seen a instructional technology facilitator in [place] and has undergone some testing. Son comes with her for the appointment. [facility] Medical History Dysarthria Ataxia Overweight (BMI 25.0-29.9) Bipolar 1 disorder GERD without esophagitis Allergic rhinitis Dementia Anxiety Osteoporosis Pure hypercholesterolemia Essential hypertension Depression Arthritis Surgical History History of cataract extraction History of Mabel-en-Y gastric bypass History of arthroplasty of right shoulder History of total hip arthroplasty History of total knee arthroplasty Hx of arthroscopic knee surgery Family History Other FH: mental illness Substance abuse Social History Household Members: Family Housing: House Do you presently have visiting nurse or other home services: No Alcohol intake: never Patient Tobacco Use Status: Former Tobacco user e-Cigarette/Vaping Use: Never Used Second Hand Smoke Exposure: Yes Advance Directives Date on File: 10/19/24 service: No Current occupational status: unemployed Current occupational exposures/hazards: No Cognitive needs: Yes (walker, cane) Hearing needs: No Vision needs: Yes (glasses) Female Reproductive History Menstrual Age of Menarche: 9 Review of Systems Const Denies weakness ENT Reports dizziness Card Denies chest pain, Denies chest pain with activity, Denies syncope, Denies rapid heart rate, Denies pedal edema, Denies edema, Denies leg edema, Denies lightheadedness, Denies palpitations, Denies dyspnea, Denies dyspnea on exertion and Denies orthopnea Resp Denies cough, Denies dyspnea and Denies dyspnea on exertion GI Denies hematochezia and Denies change in stool character Musc Denies abnormal gait, Denies muscle cramps, Denies muscle weakness, Denies numbness, Denies radiating pain into limb and Denies tingling Neuro Denies abnormal gait, Reports dizziness, Denies syncope, Denies numbness, Denies tingling and Denies weakness Endo Denies palpitations Physical Exam Vital Signs: Last Vital Signs Pulse 77 03/17/25 13:28 BP 122/68 03/17/25 13:28 BMI result Body Mass Index 28.0 Const General: comfortable and no acute distress Orientation/consciousness: patient oriented x3 HEENT Other: Unremarkable Head: Yes normal to inspection Neck Neck: Yes normal visual inspection Chest Chest palpation & inspection: normal inspection of the chest Resp Auscultation: clear to auscultation bilaterally Cardio Palpation: normal PMI Heart sounds: S1 normal heart sound present, S2 normal heart sound present, no gallops, no murmurs and no rubs GI Palpation (GI): Soft to palpation Back/Spine/Pelvis Other: unremarkable Skin General skin exam: no rashes or lesions noted Neuro General: patient oriented x3 Extrem General: Yes normal to inspection Psych Mental Status: mental status grossly normal Assessment & Plan Assessment & Plan (1) Dizziness: Code(s): R42 - Dizziness and giddiness Category: Medical (2) Recurrent syncope: Code(s): R55 - Syncope and collapse Category: Medical (3) Unsteady gait: Code(s): R26.81 - Unsteadiness on feet Category: Medical (4) Orthostatic hypotension: Code(s): I95.1 - Orthostatic hypotension Category: Medical Plan Cardiac studies reviewed. EKG with underlying sinus rhythm at 86/Min; PA prolongation to 216 milliseconds; LVH with repolarization changes; normal PA and corrected QT. Echocardiogram with LVEF of 59%. No significant valvular findings. Stress test from [place] 2023-normal perfusion at stress and rest. In the tilt-table test, she went as low as 71/56 mm Hg during 70 degree tilt. There was physiological heart rate response with dizziness. No syncope. Overall, suspect she has got orthostatic hypotension causing her falls. However, per neurology there was also concern for central versus vestibular system abnormality causing vertigo but not clear if she actually has 2 reasons for falling. As the blood pressure is stable cutting back on the nifedipine, we will just plan to stop it completely. Hence no further need for antihypertensives and they can just monitor the blood pressure. Otherwise, as long as there is no major rebound of blood pressure, probably safe without blood pressure medications. If she still has lowish blood pressures, then we can increase salt intake. Stay hydrated. We will follow up in about 6 months' time. In the interim, they will call with concerns or any blood pressure issues. Discussion Notes I discussed with the patient the plan to discontinue nifedipine to evaluate its impact on dizziness and blood pressure control. We agreed to monitor blood pressure closely and report if it consistently exceeds 140/90 mmHg. I emphasized the importance of continuing psychiatric care for dementia and scheduled a follow-up in six months to assess her condition and response to medication changes. Patient was informed and verbally consented to the use of an ambient scribe for clinic note documentation during this visit.Patient Instructi Medications: Discontinued nifedipine ER Discontinued Reason: Doctor's Order 30 mg PO DAILY 90 tabs 1RF Patient Instructions: - Stop taking nifedipine starting tomorrow. - Monitor blood pressure regularly and call if it stays above 140/90 mmHg for several days. - Continue seeing your psychiatrist for dementia care. - Return for a follow-up appointment in six months. Coding Level of Care Code Est Pt Level 4 (98488) Complex EM visit Add On G2211 Diagnoses Dizziness R42 Recurrent syncope R55 Unsteady gait R26.81 Orthostatic hypotension I95.1
--- OUTSIDE RECORDS SUMMARY | 2025-03-17 16:12 | XMS_ITS | Data Portability ---
Author Organization [place] [facility] [place] Ashley [employer]umBuildOut, autoContract - [id number] Address [address] [place] [address] Assessment Encounter Date Assessment Date Assessment LastModified by Organization Details LastModified Time 10/02/2022 10/02/2022 77 y/o here for annual exam, no complaints. pt wants pap even though less than 2 years for Medicare. Discussed pap guidelines - Older than age 65: You can stop having cervical cancer screening if you do not have a history of moderate or severe cervical dysplasia or cervical cancer and if you have had either three negative Pap test results in a row or two negative co-test results in a row within the past 10 years, with the most recent test performed within the last 5 years. [email or web address] Not available 10/02/2022 17:06:45 Plan of Treatment Reminders Order Date Submit Date Provider Last Modified By Organization Details Last Modified Time Details Appointments None recorded. Lab pap, IG + reflex HPV if ASC-U 2022 023 [facility], [address], [place], [address], 3 14:18:44 pap, LB 2020 021 [email or web address], [address] [place], [address], 1 14:54:24 pap, IG + CT + reflex HR HPV if ASC-U 2020 021 [facility], [address] [place], [address], 1 18:44:03 pap, IG + CT + reflex HR HPV if ASC-U 2018 019 MICHOACANO [facility], [address], [place], [address], 9 17:32:27 Referral None recorded. Procedures None recorded. Surgeries None recorded. Imaging MAMMO, screening, digital, bilateral [email or web address] (Imaging Scheduling), [address] [place], [address], 3 14:36:07 MAMMO, screening, digital, bilateral 2020 021 [facility] (Imaging Scheduling), [address] [place], [address], 1 11:10:14 MAMMO, screening, digital, bilateral 2018 019 [email or web address] Not available 9 10:07:24 Medication Orders None recorded. Patient TargetsNo targets recorded. Patient Instructions Encounter Date Encounter Id Patient Instructions Last Modified By Organization Details Last Modified Time 10/21/2018 [id number] [facility] Not available 10/21/2018 10:15:23 Reason for Referral None Reported. Results Created Date Observation Date Name Description Value Unit Range Abnormal Flag Note LastModifiedBy Organization Detail LastModifiedTime 10/21/19 19 10/27/2018 pap, IG + CT + refle x HR HPV if ASC-U cervix,thinp rep vial Cervi x,Thi nPrep Vial See Adequ acy Comme nt Speci men Adequ acy :Sati sfact ory for evalu ation . Endoc ervic al and/o r metap lasti c compo nent seen. NEGAT BECKA FOR INTRA EPITH EILAL LESIO N OR MALIG JAY Not Available [facility] [address], [place], [address], 10/27/2018 17:32:27 10/21/19 19 10/27/2018 pap, IG + CT + refle x HR HPV if ASC-U other info Other Inform ation Clini Tryon fo :None provi ded Elect odette miranda by : Hao grijalva MD on : 04:31 :36 PM Not Available [facility] [address], [place], [address], 10/27/2018 17:32:27 11/29/19 21 11/28/2020 pap, IG + CT + refle x HR HPV if ASC-U other info Other Inform ation Clini Tyron fo :Hakeem piedra libia Elect odette miranda by : Swati Yanes CT (ASCP ) on :11/20 06:07 :42 PM Not Available [facility] [address], [place], [address], 12/01/2020 18:44:02 11/29/19 21 12/01/2020 pap, IG + CT + refle x HR HPV if ASC-U cervix,thinp rep vial Cervi x,Thi nPrep Vial See Adequ acy Comme nt Speci men Adequ acy :Sati sfact ory for evalu ation . Prese nce or absen ce of endoc ervic al and/o r metap lasti c cells canno t be deter mined due to marke d atrop hy. NEGAT BECKA FOR INTRA EPITH ELIAL LESIO N OR FABY THOMPSON Not Available [facility] [address], [place], [address], 12/01/2020 18:44:02 10/02/19 23 10/02/2022 PAP W REFLE X HRHPV AND GENOT YPE (16+ 18/45 ) FOR ASCUS OR LSIL other info Other Inform ation Clini Tyron fo :Hakeem terrellkalee reza Not Available [facility] [address], [place], [address], 10/07/2022 14:18:44 10/02/19 23 10/07/2022 PAP W REFLE X HRHPV AND GENOT YPE (16+ 18/45 ) FOR ASCUS OR LSIL cervix,thinp rep vial Cervi x,Thi nPrep Vial See Adequ acy Comme nt Speci men Adequ acy :Sati sfact ory for evalu ation . Endoc ervic al and/o r squam ous metap lasti c cells (endo cervi michael compo nent) are prese nt. NEGAT BECKA FOR INTRA EPITH ELIAL LESIO N OR MALIG JAY . Negat becka for Intra epith elial Lesio n Not Available [facility] [address], [place], [address], 10/07/2022 14:18:44 10/31/19 23 10/31/2022 MAMMO , diagn ostic , digit al, bilat eral No observ ation record ed. [facility] (Imaging Scheduling) [address] [place], [address], 11/26/2022 10:41:27 Result Notes None recorded. Problems Name Problem SNOMED Code Status Onset Date Resolution Date Notes Provider Name and Address Organization Details Recorded Time Human papilloma virus infection 506118357 Active Not Available [facility] 6 03:42:37 Problem Notes None recorded. Medical Equipment None Reported. Allergies No known drug allergies Medications Name Sig Start Date Stop Date Status Note LastModified by Organization Details LastModified Time compound drug SWISH AND SPIT 5 ML PO TID FOR 1 WEEK. active Not Available Not Available No t Available losartan 50 mg tablet TAKE 1 TABLET BY MOUTH EVERY DAY active Not Available Not Available No t Available clotrimazole 10 mg rm active Not Available Not Available Not Available lamotrigine 150 mg tablet TAKE 1 TABLET BY MOUTH DAILY active Not Available Not Available Not Available atorvastatin 80 mg tablet TAKE 1 TABLET BY MOUTH AT BEDTIME active Not Available Not Available No t Available nystatin 100,000 unit/mL oral suspension active Not Available Not Available N ot Available venlafaxine ER 75 mg capsule,exte nded release 24 hr TAKE ONE CAPSULE BY MOUTH DAILY active Not Available Not Available Not Available nitrofuranto in macrocrystal 50 mg capsule active Not Available Not Available Not Available lamotrigine 200 mg tablet TAKE 1 TABLET BY MOUTH EVERY DAY active Not Available Not Available No t Available albuterol sulfate 2.5 mg/3 mL (0.083 %) solution for nebulization USE 1 VIAL VIAL NEBULIZER 3 TIMES A DAY DIRECTED active Not Available Not Available Not Available azithromycin 250 mg tablet active Not Available Not Available Not Available Lidocaine Viscous 2 % mucosal solution active Not Available Not Available Not Available sulfamethoxa zole 400 mg-trimethop rim 80 mg tablet TK 1 T PO QHS. active Not Available Not Available No t Available methylphenid ate 10 mg tablet TAKE 1 TABLET BY MOUTH EVERY MORNING. TAKE ALONG WITH 5 MG TABLET active Not Available Not Available No t Available meloxicam 15 mg tablet TAKE 1 TABLET BY MOUTH EVERY DAY active Not Available Not Available No t Available ondansetron HCl 4 mg tablet TAKE 1 TABLET BY MOUTH 2 TO 3 TIMES DAILY NEEDED active Not Available Not Available No t Available methylphenid ate 5 mg tablet TAKE 1 TABLET BY MOUTH EVERY MORNING. TAKE ALONG WITH 10MG active Not Available Not Available No t Available prednisone 20 mg tablet active Not Available Not Available Not Available venlafaxine ER 150 mg capsule,exte nded release 24 hr TAKE 1 CAPSULE BY MOUTH EVERY DAY active Not Available Not Available No t Available meclizine 12.5 mg tablet active Not Available Not Available Not Available acetaminophe n 300 mg-codeine 30 mg tablet active Not Available Not Available Not Available ciprofloxaci n 500 mg tablet TK 1 T PO Q 12 H active Not Available Not Available No t Available sulfamethoxa zole 800 mg-trimethop rim 160 mg tablet active Not Available Not Available Not Available tramadol 50 mg tablet TAKE 1 TABLET BY MOUTH EVERY 6 HOURS NEEDED FOR PAIN active Not Available Not Available No t Available lamotrigine 25 mg tablet TAKE 2 TABLETS BY MOUTH ONCE DAILY active Not Available Not Available No t Available pantoprazole 20 mg tablet,delay ed release TK 1 T PO ONCE D active Not Available Not Available No t Available dexamethason e 0.5 mg/5 mL oral elixir active Not Available Not Available Not Available cyproheptadi ne 4 mg tablet active Not Available Not Available Not Available oxycodone-ac etaminophen 5 mg-325 mg tablet TK 1 T PO Q 4-6 H PRN P active Not Available Not Available Not Available prednisolone acetate 1 % eye drops,suspen serene SHAKE LIQUID AND INSTILL 1 DROP IN BOTH EYES FOUR TIMES DAILY active Not Available Not Available No t Available temazepam 15 mg capsule TAKE 1 CAPSULE BY MOUTH AT BEDTIME active Not Available Not Available No t Available baclofen 10 mg tablet TK 1 T PO WITH FOOD OR MILK BID active Not Available Not Available Not Available pantoprazole 40 mg tablet,delay ed release TAKE 1 TABLET BY MOUTH EVERY DAY active Not Available Not Available No t Available tobramycin 0.3 % eye drops active Not Available Not Available Not Available buspirone 10 mg tablet TAKE 2 TABLETS BY MOUTH TWICE DAILY active Not Available Not Available No t Available gabapentin 300 mg capsule TAKE 1 CAPSULE BY MOUTH THREE TIMES DAILY active Not Available Not Available Not Available montelukast 10 mg tablet active Not Available Not Available Not Available Dexamethason e Intensol 1 mg/mL Drops (concentrate ) active Not Available Not Available Not Available diclofenac sodium 50 mg tablet,delay ed release TAKE 1 TABLET BY MOUTH TWICE DAILY active Not Available Not Available No t Available azelastine 137 mcg (0.1 %) nasal spray USE 2 SPRAYS IN BOTH NOSTRILS TWICE DAILY FOR NASAL ALLERGY active Not Available Not Available No t Available ibuprofen 600 mg tablet TK 1 T PO EVERY 6 HOURS PRN active Not Available Not Available No t Available estradiol 0.01% (0.1 mg/gram) vaginal cream INSERT VAGINALLY AT BEDTIME TWICE A WEEK ON FRIDAY AND FRIDAY active Not Available Not Available No t Available methylpredni solone 4 mg tablets in a dose pack active Not Available Not Available No t Available oxybutynin chloride 5 mg tablet TAKE 1 TABLET BY MOUTH TWICE DAILY active Not Available Not Available No t Available hydroxyzine HCl 10 mg tablet TAKE 2 TABLETS BY MOUTH TWICE DAILY NEEDED FOR ANXIETY active Not Available Not Available No t Available losartan 100 mg tablet TAKE 1 TABLET BY MOUTH EVERY DAY active Not Available Not Available No t Available fluticasone propionate 50 mcg/actuatio n nasal spray,suspen serene INSTILL 2 SPRAYS IN EACH NOSTRIL EVERY NIGHT AT BEDTIME active Not Available Not Available N ot Available amoxicillin 875 mg-potassium clavulanate 125 mg tablet active Not Available Not Available Not Available Ventolin HFA 90 mcg/actuatio n aerosol inhaler active Not Available Not Available Not Available tobramycin 0.3 %-dexamethas one 0.1 % eye drops,suspen serene INSTILL 1 DROP TWICE DAILY IN BOTH EYES FOR 10 DAYS active Not Available Not Available Not Available oxycodone 5 mg tablet TAKE 1 TABLET BY MOUTH EVERY 6 HOURS NEEDED FOR PAIN active Not Available Not Available No t Available modafinil 100 mg tablet active Not Available Not Available Not Available Restasis 0.05 % eye drops in a dropperette INSTILL 1 DROP TWICE DAILY ON BOTH EYES active Not Available Not Available No t Available bupropion HCl XL 300 mg 24 hr tablet, extended release TAKE 1 TABLET BY MOUTH DAILY active Not Available Not Available Not Available bupropion HCl XL 150 mg 24 hr tablet, extended release TAKE 1 TABLET BY MOUTH EVERY MORNING active Not Available Not Available No t Available memantine 10 mg tablet TAKE 1 TABLET BY MOUTH TWICE DAILY active Not Available Not Available No t Available memantine 5 mg tablet TAKE 1 TABLET BY MOUTH TWICE DAILY active Not Available Not Available No t Available nitrofuranto in monohydrate/ macrocrystal s 100 mg capsule TAKE 1 CAPSULE BY MOUTH TWICE DAILY FOR 7 DAYS active Not Available Not Available No t Available oxycodone 10 mg tablet TAKE 1 TABLET BY MOUTH EVERY 6 HOURS NEEDED active Not Available Not Available No t Available Prevnar 13 (PF) 0.5 mL intramuscula r syringe ADM 0.5ML IM UTD active Not Available Not Available No t Available Prolia 60 mg/mL subcutaneous syringe ADM UNDER THE SKIN UTD FOR 1 DOSE active Not Available Not Available No t Available Latuda 20 mg tablet TAKE 1 TABLET BY MOUTH EVERY EVENING active Not Available Not Available No t Available Jardiance 10 mg tablet active Not Available Not Available No t Available Xiidra 5 % eye drops in a dropperette INSTILL 1 DROP IN BOTH EYES TWICE DAILY active Not Available Not Available Not Available Qvar RediHaler 80 mcg/actuatio n HFA breath activated aerosol active Not Available Not Available Not Available Fluzone High-Dose 0148-9050 (PF) 180 mcg/0.5 mL intramuscula r syringe ADM 0.5ML IM UTD active Not Available Not Available No t Available Cequa 0.09 % eye drops in a dropperette INSTILL 1 DROP INTO BOTH EYES TWICE DAILY approximate ly 12 hours apart active Not Available Not Available No t Available Fluad 65yr up(PF)45 mcg(15 mcgx3)/0.5 mL intramuscula r syringe TO BE ADMINISTERE D BY PHARMACIST FOR IMMUNIZATIO N active Not Available Not Available No t Available Vitals Date Recorded Body weight Heart rate Systolic blood pressure Diastolic blood pressure Provider Name and Address Organization Details Last Updated DateTime 10/02/2022 64771 g 77 /min 163 mm[Hg] 77 mm[Hg] Rigo Fraire (TERMED) [facility] 10/02/2022 09:20:09 Date Recorded Body weight Body mass index (BMI) Body height Systolic blood pressure Diastolic blood pressure Provider Name and Address Organization Details Last Updated DateTime 10/21/2018 91351.01 g 24.6 kg/m2 154.94 cm 106 mm[Hg] 71 mm[Hg] Mercedes Ferrell (TERMED) [facility] 09:54:31 Date Recorded Body weight Body mass index (BMI) Body height Heart rate Heart rate Systolic blood pressure Diastolic blood pressure Systolic blood pressure Diastolic blood pressure Provider Name and Address Organization Details Last Updated DateTime 31006.9 7 g 25.5 kg/m2 154.94 cm 67 /min 88 /min 159 mm[Hg] 66 mm[Hg] 158 mm[Hg] 67 mm[Hg] Paula Bosanac [facility] 09:19:58 Social History Question Answer Notes LastModified by Organizat ion Details LastModified Time Tobacco Smoking Status Never Smoker LD BLACK M.D. [address] [place] [address], [address], [place], [address], [facility] 10/21/2018 08:05:36 What Was The Date Of Your Most Recent Tobacco Screening? 10/21/2018 Information n ot available 04/15/2019 How Much Tobacco Do You Smoke? No Information not available 10/21/2018 How Many Years Have You Smoked Tobacco? 0 Information not available 10/21/2018 Sex: Unknown Functional Status None recorded. Mental Status None recorded. Family History Nothing Reported. Medical History No medical history recorded. Gynecological History Statement/Question Response Date of last bone density Date of Last Diabetes Screening Date of Last Colonoscopy Date of LMP Date of Last Cholesterol Screening Obstetrics History GPAL:G 0 P 0 0 0 0 Past Encounters Encounter ID Performer Location Encounter Start Date Encounter Closed Date Diagnosis/Indication Diagnosis SNOMED-CT Code Diagnosis ICD10 Code Diagnosis Note [id number] LD BLAKC M.D. [facility] [address] [place] [address] 11/09/2014 00:00:00 12/05/2014 00:00:00 Human papilloma virus infection 115721706 [id number] LD BLACK M.D. [facility] [address] [place] [address] 10/21/2018 09:23:15 10/21/2018 11:07:27 Gynecologic examination 85896634 Z01.411 Z11.51 R87.619 Pt wants HPV even thought medicare wont pay Screening mammography 24 540562 Z12.31 Candidiasis of vagina 72 641498 B37.3 Monistat OTC [id number] LD BLACK M.D. [facility] [address] 11/28/2020 08:51:44 11/28/2020 09:36:48 Gynecologic examination 17359577 Z01.411 Z11.51 R87.619 Pt wants HPV even thought medicare wont pay Screening mammography 24 194631 Z12.31 [id number] CHARLES ODEN MD [facility] [address] [place] [address] 10/02/2022 09:02:23 10/02/2022 09:55:05 Gynecologic examination 17672392 Z01.419 pap+hpv Screening mammography 24 894120 Z12.31 Health Concerns Section Related Observation LastModified by Organization Detai ls LastModified Time None Recorded Concern Status LastModified by Organization Details LastModified Time None Recorded Advance Directives Directive None Recorded Payers Insurance Date Sequence Insurance Name Policy Number Policy Thorne Covered Member ID Thorne Member ID Guarantor Name 10/02/2022 1 [place] Brittany Martinze [id number] Brittany Mansfield 10/02/2022 2 [place] [facility]NOLOG[facility] Brittany Mansfield [id number] Brittany Mansfield 10/02/2022 2 [place] [facility] [employer] Brittany Mansfield [id number] Brittany Mansfield 10/02/2022 2 [facility] (MEDICAID REPLACEMENT - HMO) Brittany Mansfield [id number] Brittany Mansfield Notes Date Note Type Note Provider Name and Address Organization Details Recorded Time 11/28/2020 text/html Annual Postmenopausal ([facility])Reported bypatient.Relevant Family History:no family history of breast cancer; no family history of ovarian cancer; no family history of uterine cancer; no family history of colon cancer; no family history of blood clots/DVT Menopausal Symptoms:not present HRT:never on HRT; not currently on HRT Vaginal Bleeding:no LD BLACK M.D. [address], [place], [address], [facility] 11/29/2020 09:03:22 10/02/2022 text/html Annual Postmenopausal ([facility])Reported bypatient.Patient Relationship to Practice:established patient Current Medical History:active medical problems stable Relevant Family History:no family history of breast cancer; no family history of ovarian cancer; no family history of uterine cancer; no family history of colon cancer; no family history of blood clots/DVT Menopausal Symptoms:not present HRT:never on HRT; not currently on HRT Vaginal Bleeding:no Sexually Active:No: STI Screen:declines Mammogram:due Pap Smear +/- HPV Cotesting:due CHARLES ODEN MD [address] [facility], [address], [place], [address], [facility] 10/02/2022 17:07:01 OBGyn Episode No OBEpisode recorded.
== END 2025-03-17 13:59 | disposition home or self-care (01) ==
LOC: HO.HCS 13:26
PROVIDERS: PCP Internal Medicine; Visit Provider Internal Medicine
DX: R42 Dizziness and giddiness (principal); R55 Syncope and collapse; R26.81 Unsteadiness on feet; I95.1 Orthostatic hypotension
CPT/HCPCS: 99214; G2211

== ENCOUNTER → 2025-03-17 13:25 | Outpatient (BNVA) | payer OTHER, SELFPAY | PROVIDERS: PCP Internal Medicine; Visit Provider Internal Medicine | DX: R42 Dizziness and giddiness (principal); R26.81 Unsteadiness on feet; I95.1 Orthostatic hypotension | CPT/HCPCS: 99212 ==

== ENCOUNTER 2025-04-08 14:33 | Outpatient (AMB) | payer OTHER, SELFPAY ==
--- OUTSIDE RECORDS SUMMARY | 2025-04-08 14:36 | XMS_ITS | Clinical Summary ---
Author Organization [employer] Address [address] [place] [address] Care Team Providers Care Golf Course Keeper Name Role Phone Unavailable Primary Care Provider [...] 2023-2 5 season) 2024 Influenza Vaccine (#1) 2025 HIB Vaccines Aged Out No longer [...] patient's age to complete this topic Insurance DENTAL - [facility]
--- OUTSIDE RECORDS SUMMARY | 2025-04-08 14:36 | XMS_ITS | Encounter Summary ---
Author Organization [facility] Address [address] [place] [address] Encounters * CPT with Ranjit Lindquist at [facility] on 2025-03-12 { reasonForRequest : Pt's son reporting a fall, with associated pain> , patientReports : , denies :[ Falls with head strike andLOC , Falls from a standing position, no LOC, patient is amnestic to the event ,"Falls with isolated injury and deformity noted to limb , Falls with inability to move post fall , Cool extremities after fall or injury ], chiefComplaints : Fa lls , pmh : Dementia (e.g., Alzheimer's Disease), Hypertension , aller gies : Gabapentin , otherAllergies :null, painAssessment : & quot;, visitOutcome : , additionalComments : 80 y.o female complains of Falls\n\nPatients son calling in to place a referral.\nPer son, his called him, stating his mom had a fall in the next room over about 30 min ago. Patient has dementia, and is not alwaystruthful about symptoms.\nThey are unsure of head strike, don't believe she had LOC as they went right in her room when they heard the fall, she does not take any blood thinners. Patient does complain that some of her meds make her dizzy and \ loopy\ .\nPer son she is prone to falls, and t hey believe she has orthostasis.\nPer his patient is awake, alert, talking and walking.\nThey would like her evaluated.\n\nPatient has more allergies and PMH, however, he is driving home now andwill have her paperwork present for review.\n\nI provided information on the mobile health providerresponse time and advised the patient and/or caregiver to monitor reported signs and symptoms. I discussed the warning signs of when to seek emergency care. } [facility] is dispatched to an 80 yof w/ c/c of ground level fall. Upon arrival, pt's son, who is her primary caregiver, meets [facility] at the [facility] truck and walks w/ [facility] to the home where he lives and cares for his mom, the pt. 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 She was heard fallingby family who immediately ran into the room to assist the pt off the floor. Subjective LOC from family is unknown. Son also reports pt saying one of her medications makes her dizzy, the venlafaxine. She has been having this complaint for a while and he told her to stop taking it for a few days, then told her to take it again. She took it today. She also just finished her cipro for uti yesterday and took a muscle relaxer yesterday for low back pain and she hasn't taken that medication for a long time . Pt came to visit son from [place] in June 2024 and had six glf's in that time,so he made her stay and not return to [place]. He has been her caregiver since. Pt has had MRIs andEKGs w/ no significant findings, has stage II kidney disease, and just had a tilt test last week. He describes her mental state at this time as like a zombie right now . Normally he describes her as happy and conversive and it is hard to tell she has dementia. [facility] makes pt contact. She is seated in a chair in her room awaiting [facility] arrival. She makes eye contact and says hello. She is generally well appearing. No ashen or staton color are noted; no stridor orsonorous respirations are present. No facial droop or one-sided weakness are observed. She is able to answer questions regarding person, place, and time, but she does not remember falling today. She demonstrates the ability to think lucina and retrograde by naming tomorrow and yesterday, but she isunable to remember the name of the month. She knows it is month 6 but cannot remember its name. Shemaintains eye contact w/ [facility] throughout. When asked what happened today, she says The same thing that happened in [place]. I just fell. I feel like my body just isn't there anymore and I fall." She is also c/o dizziness as she is sitting and says it is her medication and points at the two venlafaxine pills in her pillow packs. Pt is denying visual disturbances and tinnitus. She also denies cp, sob, n/v/d, abd pain, fever and chills. No heart palpitations are reported. She is denying GUZMÁN, but the back of her head is sore she says because she fell backwards when she fell earlier. She can only remember being helped off the floor. She is not anticoagulated. She is denying any new painin her hips, shoulders, and back where she has s/s of rheumatoid arthritis. [facility] obtains vital signs and pt is assessed. Head is atraumatic and normocephalic. Occiput is tenderto palpation, but no swelling or bruising are noted. No midline neck or back pain and pt can move her head and neck w/o difficulty. No step offs or deformities are noted in CTL spine. Pelvis is stable and intact. Abdomen is soft and nontender in all four quadrants. Chest is atraumatic and lung sounds are clear bilaterally to auscultation. No swelling or tenderness is noted in the LEs and CMS is intact. Pt has good bilateral extremity strength while seated but struggles to stand due to painful hips and knees. She also c/o dizziness when standing. A 12-lead EKG is obtained and shows sinus rhythm w/ artifact and widening QRS in all leads. [facility] contacts [facility] and discusses the above. [facility] speaks w/son and [facility] is not present for the conversation. [facility] [place] [facility] he spoke w/ son about getting a CT scan for the pt and he agreed to transport her POV to [facility]. Son thanks [facility] and begins to get pt ready to go to the ED for further workup. [facility] is clear. Report completed by JORDYN Landry [id number]. IV_(FLUIDS_AND/OR_MEDICATION), MEDICATION_IM, EKG, GLUCOSE, ORTHOSTATIC_VITAL_SIGNS Written by Ranjit Lindquist on 2025-03-12
--- OUTSIDE RECORDS SUMMARY | 2025-04-08 14:36 | XMS_ITS | Data Portability ---
Author Organization [place] [facility] [employer], [employer] [id number] Address [address] [place] [address] Assessment Encounter Date Assessment Date Assessment LastModified [...] test performed within the last 5 years. [email or web address] Not available 10/02/2022 17:06:45 Plan of Treatment Reminders Order Date Submit Date Provider Last Modified By Organization Details Last Modified Time Details Appointments None recorded. Lab pap, IG + reflex HPV if ASC-U 2022 023 [facility], [address], [place], [address], 3 14:18:44 pap, LB 2020 021 [email or web address] [facility], [address] [place], [address], 14:54:24 pap, IG + CT + reflex HR HPV if ASC-U 2020 021 [facility], [address], [place], [address], 1 18:44:03 pap, IG + CT + reflex HR HPV if ASC-U 2018 019 MICHOACANO [facility], [address], [place], [address], 9 17:32:27 Referral None recorded. Procedures None recorded. Surgeries None recorded. Imaging MAMMO, screening, digital, bilateral [address] (Imaging Scheduling), [address] [place], [address], 3 14:36:07 MAMMO, screening, digital, bilateral 2020 021 [facility] (Imaging Scheduling), [address] [place], [address], 1 11:10:14 MAMMO, screening, digital, bilateral 2018 019 [email or web address] Not available 9 10:07:24 Medication Orders None recorded. Patient TargetsNo targets recorded. Patient Instructions Encounter Date Encounter Id Patient Instructions Last Modified By Organization Details Last Modified Time 10/21/2018 [id number] [facility] Immun[facility] System Not available [...] LESIO N OR MALIG JAY Not Available [facility] [address], [place], [address], 10/27/2018 17:32:27 10/21/19 19 10/27/2018 pap, IG + CT + refle x HR HPV if ASC-U other info Other Inform ation Clini Tyron fo :None provi ded Elect odette miranda by : Hao grijalva MD on : 04:31 :36 PM Not Available [facility] [address], [place], [address], 10/27/2018 17:32:27 11/29/19 21 11/28/2020 pap, IG + CT + refle x HR HPV if ASC-U other info Other Inform ation Clini Tyron fo :Hakeem reza Elect odette miranda by : Swati Yanes CT (ASCP ) on :11/20 06:07 :42 PM Not Available [facility] [address], [place], [address], 12/01/2020 18:44:02 11/29/19 21 12/01/2020 pap, IG + CT + refle x HR HPV if ASC-U cervix,thinp rep vial Cervi x,Thi nPrep Vial See Adequ acy Comme nt Speci men Adequ acy :Sati sfact ory for evalu ation . Prese nce or absen ce of endoc ervic al and/o r metap lasti c cells canno t be deter mined due to markel cobb hy. NEGAT BECKA FOR INTRA EPITH ELIAL LESIO N OR FABY THOMPSON Not Available [facility] [address], [place], [address], 12/01/2020 18:44:02 10/02/19 23 10/02/2022 PAP W REFLE X HRHPV AND GENOT YPE (16+ 18/45 ) FOR ASCUS OR LSIL other info Other Inform ation Clini Tyron fo :Hakeem shannon reza Not Available [facility] [address], [place], [address], 10/07/2022 14:18:44 10/02/19 23 10/07/2022 PAP W [...] Intra epith elial Lesio n Not Available [facility] [address], [place], [address], 10/07/2022 14:18:44 10/31/19 23 10/31/2022 MAMMO , diagn ostic , digit al, bilat eral No observ ation record ed. [facility] (Imaging Scheduling) [address] [place], [address], 11/26/2022 10:41:27 Result Notes None recorded. Problems Name Problem SNOMED Code Status Onset Date Resolution Date Notes Provider Name and Address Organization Details Recorded Time Human papilloma virus infection 338666689 Active Not Available [facility] 6 03:42:37 Problem Notes None recorded. [...] Available Not Available Not Available Fluzone High-Dose [id number] (PF) 180 mcg/0.5 mL intramuscula r syringe [...] Date Recorded Body weight Heart rate Systolic And Diastolic Provider Name and Address Organization Details Last Updated DateTime 10/02/2022 70972 g 77 /min 163/77 mm[Hg] Rigo Fraire (TERMED) [facility] [employer] [facility] 10/02/2022 09:20:09 Date Recorded Body weight Body mass index (BMI) Body height Systolic And Diastolic Provider Name and Address Organization Details Last Updated DateTime 10/21/2018 39462.01 g 24.6 kg/m2 154.94 cm 106/71 mm[Hg] Mercedes Ferrell (TERMED) [facility] [employer] [facility] 10/21/2018 09:54:31 Date Recorded Body weight Body mass index (BMI) Body height Heart rate Heart rate Systolic And Diastolic Systolic And Diastolic Provider Name and Address Organization Details Last Updated DateTime 27614.9 7 g 25.5 kg/m2 154.94 cm 67 /min 88 /min 159/66 mm[Hg] 158/67 mm[Hg] Paula Stone [facility] [employer] [facility] 09:19:58 Social History Question Answer Notes LastModified by Organizat ion Details LastModified Time Tobacco Smoking Status Never Smoker LD BLACK M.D. [address], [address], [place], [address] [employer] [facility] 10/21/2018 08:05:36 What Was The Date Of [...] SNOMED-CT Code Diagnosis ICD10 Code Diagnosis Note [id number] LD BLACK M.D. [facility]018[facility]N [address] [place] [address] 11/09/2014 00:00:00 12/05/2014 00:00:00 Human papilloma virus infection [id number] LD BLACK M.D. CC018_N [address] [place] [address] 10/21/2018 09:23:15 10/21/2018 11:07:27 Gynecologic examination 27245767 Z01.411 Z11.51 R87.619 Pt wants HPV even thought medicare wont pay Screening mammography 24 703709 Z12.31 Candidiasis of vagina 72 631659 B37.3 Monistat OTC [id number] LD BLACK M.D. CC018[address]N [address] [place] [address] 11/28/2020 08:51:44 11/28/2020 09:36:48 Gynecologic examination 89678551 Z01.411 Z11.51 R87.619 Pt wants HPV even thought medicare wont pay Screening mammography 24 275446 Z12.31 [id number] CHARLES ODEN MD CC018_N [address] [place] [address] 10/02/2022 09:02:23 10/02/2022 09:55:05 Gynecologic examination 39523803 Z01.419 pap+hpv Screening mammography 24 896779 Z12.31 Health Concerns Section Related Observation LastModified by Organization Detai ls LastModified Time None Recorded Concern Status LastModified by Organization Details LastModified Time None Recorded Advance Directives Directive None Recorded Payers Insurance Date Sequence Insurance Name Policy Number Policy Thorne Covered Member ID Thorne Member ID Guarantor Name 10/02/2022 1 [place] Brittany Martinez [id number] Brittany Mansfield 10/02/2022 2 [place] [employer] Brittany Mansfield [id number] Brittany Mansfield 10/02/2022 2 [place] [employer] Brittany Mansfield [id number] Brittany Mansfield 10/02/2022 2 [facility] (MEDICAID REPLACEMENT - HMO) Brittany Mansfiled [id number] Brittany Mansfield Notes Date Note Type Note [...] Vaginal Bleeding:no LD BLACK M.D. [address], [place], [address], [facility] [email or web address] 11/29/2020 09:03:22 10/02/2022 text/html Annual Postmenopausal (UEHRC)Reported [...] STI Screen:declines Mammogram:due Pap Smear +/- HPV Cotesting:melanie ODEN MD [address], [place], [address], [facility] [email or web address] 10/02/2022 17:07:01 OBGyn Episode No OBEpisode recorded.
--- OUTSIDE RECORDS SUMMARY | 2025-04-08 14:37 | XMS_ITS | Clinical Summary ---
Author Organization [facility] Address [address] [place] [address] Phone Care Team Providers Care Web Applications Developer Name Role Phone Jacob Vale MD Primary Care Provider [phone] Encounters Date Type Department Care Team Description 03/08/2025 12:56 PM EDT - 03/08/2025 11:59 PM EDT Hospital Encounter [facility] Xray [address] [place] [address] Syncope and collapse Discharge Disposition: Home or Self Care from Last 3 Months Social History Tobacco Use Types Packs/Day Years Used Date Smoking Tobacco: Never Assessed Comments Unknown Sex and Gender Information Value Date Recorded Sex Assigned at Not on file Legal Sex Female 11:13 AM EDT Gender Identity Not on file Sexual Orientation Not on file Plan of Treatment Health Maintenance Due Date Last Done Comments DTaP,Tdap,and Td Vaccines (1 - Tdap) 01[birth year]05/1964 Pneumococcal Vaccine: 50+ Ye ars (1 of 1 - PCV) 1995 Zoster Vaccines (1 of 2) 1995 RSV Immunization Adult Patie nts (1 - 1-dose 75+ series) 01/05/2020 COVID-19 Vaccine ( - 2023-2 5 season) 2024 Depression Screening 2025 Falls Risk Assessment 2025 Medicare Annual Wellness Visit 2025 Osteoporosis Screening (Bone Density Screening) 2025 Social Influencers of Health Screening 2025 Influenza Vaccine (#1) 2025 HIB Vaccines Aged [...] Procedure Name Priority Date/Time Associated Diagnosis Comments TILT TABLE Routine 03/08/2025 1:03 PM EDT Syncope and collapse from Last 3 Months Results * Tilt table (03/08/2025 1:03 PM EDT) Anatomical Region Laterality Modality Radiographic Erica ging Narrative 03/08/2025 1:51 PM EDT Orthostatic hypotension. After 500 cc IVNS,, bp stable going from flat to upright position. Daily fluid intake is poor. If she drinks a lot she has incontinance issues and has a hard time eating because she feels full. Tilt Table Patient lied supine for 5 minutes for equilibrium. Baseline ECG showed normal sinus rhythm. Baseline supine minimum BP: 134/62 mmHg Baseline supine maximum BP: 134/62 mmHg Baseline supine minimum HR: 98 bpm Patient tilted to 70 degrees. Tilt maintained for 10 minutes. Minimum BP during tilt: 71/56 mmHg Maximum BP during tilt: 138/62 mmHg Minimum heart rate during tilt: 93 bpm Maximum heart rate during tilt: 104 bpm Rhythm during tilt: normal sinus rhythm There was a clear orthostatic response noted. Patient experienced a physiologic HR increase with tilt. Symptoms seen on tilt include: dizziness. Premonitory symptoms were reproduced. Syncope/presyncope symptoms were not reproduced. dizzy at baseline, worse with upright position Conclusion: Abnormal tilt test with findings consistant with orthostatic hypotension. us Harris Bennett MD [facility] PRO CEDURES Final Result from Last 3 Months Insurance [employer] MEDICARE Member Subscriber Plan / Payer (Ef fective 2025-Present) Name:[place] Brittany Martinez Relation to Subscriber:Self Name:Donal MartinezBrittany Payer ID:[id number] Group ID:[id number] Type:Not on file Address: [place] [address] [address] Care Teams Web Applications Developer Relationship Specialty Start Date End Date Jacob Vale MD [address] [place] [address] PCP - General Internal Medicine 03/08/25
[2025-04-08 14:41] VITALS: BP 142/70; PULSE 88; O2SAT 94; BMI 26.9
--- NOTE | 2025-04-08 14:41 | MHC.PC.OV ---
Vital Signs 04/08/25 14:41 Height 4 ft 11 in Weight 133 lb 6 oz BMI 26.9 BP 142/70 H Blood Pressure Location Rt brachial Position Sitting Pulse 88 Pulse Source Pulse Oximeter Pulse Oximetry (%) 94 Oxygen Delivery Method Room Air Intake Visit Reasons: 3 Month F/U Alum Mixer Required: No Accompanied by: Self / Same As Patient Allergies No Known Allergies Allergy (Verified 04/08/25 15:05) Medication List - Last Reconciled 04/08/25 by Jacob Vale MD albuterol sulfate 90 mcg/actuation 2 puffs inhalation Q4-6H PRN atorvastatin 80 mg PO DAILY bupropion HCl XL 150 mg PO DAILY 90 days buspirone 20 mg PO BID cariprazine (Vraylar) 3 mg PO DAILY 30 days cyclobenzaprine 10 mg PO BEDTIME 90 days fluticasone propionate 50 mcg/actuation 1 spray intranasal DAILY PRN ibandronate 150 mg PO Q28D 3 months meclizine 25 mg PO BEDTIME PRN memantine 20 mg (2 x 10 mg) PO DAILY Tobacco use date assessed: 04/08/25 Fall risk assessment: 2 + Falls in past year Last assessed Fall Risk: 04/08/25 Dental Screening Dental Screen Date: 04/08/25 Did you have a dental visit in the last 12 months?: Yes Did you have a dental problem in the last 6 months where you did not have access to dental care?: No Was dental information given to patient?: Patient has dentist HPI 3 Month F/U HPI Details Patient comes in today for her follow-up visit She continues to complain of bilateral hip pain States that she was seen by Orthopedics last month and received some injections in her hip, which she states helps somewhat and she is wondering as to how often she can get injections in her hips for pain She was reportedly advised that she is not a candidate for surgery, given her history of hip fractures and the presence of orthopedic hardwares in her hips as a result of her injuries She was seen by Cardiology sometime in December 2024 for her recurrent dizzy spells and she reportedly underwent further evaluation including tilt-table testing which came back positive She was eventually taken off her nifedipine ER 60 mg and her symptoms significantly improved afterwards with no further recurrence of her syncopal episodes or dizziness She currently denies any headaches Denies any chest pains, no increased shortness of breath No nausea/vomiting, no abdominal pain No change in bowel habits noted States that she had some follow-up labs done last month - to discuss her results [facility] Medical History Dysarthria Ataxia Overweight (BMI 25.0-29.9) Bipolar 1 disorder GERD without esophagitis Allergic rhinitis Dementia Anxiety Osteoporosis Pure hypercholesterolemia Essential hypertension Depression Arthritis Surgical History History of cataract extraction History of Mabel-en-Y gastric bypass History of arthroplasty of right shoulder History of total hip arthroplasty History of total knee arthroplasty Hx of arthroscopic knee surgery Family History Other FH: mental illness Substance abuse Social History Household Members: Family Housing: House Do you presently have visiting nurse or other home services: No Alcohol intake: never Patient Tobacco Use Status: Former Tobacco user e-Cigarette/Vaping Use: Never Used Second Hand Smoke Exposure: Yes Advance Directives Date on File: 10/19/24 service: No Current occupational status: unemployed Current occupational exposures/hazards: No Cognitive needs: Yes (walker, cane) Hearing needs: No Vision needs: Yes (glasses) Female Reproductive History Menstrual Age of Menarche: 9 Questionnaire PHQ-9 Over the last 2 weeks, how often have you been bothered by any of the following problems? 1. Little interest or pleasure in doing things: more than half the days 2. Feeling down, depressed, or hopeless: several days 3. Trouble falling or staying asleep, or sleeping too much: more than half the days 4. Feeling tired or having little energy: nearly every day 5. Poor appetite or overeating: more than half the days 6. Feeling bad about yourself - or that you are a failure or have let yourself or your family down: not at all 7. Trouble concentrating on things, such as reading the newspaper or watching television: nearly every day 8. Moving or speaking so slowly that other people could have noticed. Or the opposite - being so fidgety or restless that you have been moving around a lot more than usual: not at all 9. Thoughts that you would be better off or of hurting yourself in some way: not at all Total score: 13 Depression Screening Interpretation: Positive Depression Screening Follow-up: Existing condition and In treatment Depression Screening Done: Yes 99877 - PHQ-9 Billing: Yes Source: Developed by Drs. Donovan Fierro, Deepa Bustamante, Nathaniel Lyons and colleagues, with an educational marquez from [employer]. Thrive Questionnaire Date Thrive assessed: 04/08/25 I am a: Patient What is your living situation today?: I have a place to live, but I am worried about losing it in the future Within the past 12 months, did the food you bought not last and you didn't have the money to get more?: Never true Within the past 12 months, did you worry whether your food would run out before you got money to buy more?: Never true Do you have trouble paying for medicines?: No Do you have trouble getting transportation to medical appointments?: Yes Do you have trouble paying your heating and electricity bill?: No Do you have trouble taking care of your child, family member or friend?: I choose not to answer this question Do you have trouble with day-to-day activities such as bathing, preparing meals, shopping, managing finances, etc.?: Yes Are you currently unemployed and looking for a job?: No Are you interested in more education?: No Currently or been in a relationship where the following occur: No concerns reported THRIVE Score: 2 AUDIT C Alcohol Use Questionnaire (AUDIT-C) 1. How often do you have a drink containing alcohol?: Never 3. How often do you have six or more drinks on one occasion?: Never Total Score: 0 Score Reviewed/Action Taken: Yes WYATT-7 AMB Questionnaire WYATT-7 Date WYATT - 7 assessed: 04/08/25 Feeling nervous, anxious, or on edge: 0 = Not at all Not being able to stop or control worryin = Not at all Worrying too much about different things: 0 = Not at all Trouble relaxin = Not at all Being so restless that it is hard to sit still: 0 = Not at all Becoming easily annoyed or irritable: 0 = Not at all Feeling afraid as if something awful might happen: 0 = Not at all Total WYATT-7 score (0-4 normal; 5-9 mild; 10-14 moderate; 15-21 severe): 0 Source: Developed by Drs. Donovan Fierro, Deepa Bustamante, Nathaniel Lyons and colleagues, with an educational marquez from [employer]. Review of Systems Const Denies chills, Reports fatigue, Denies fever(s), Reports frequent falls, Denies headache(s) and Reports weakness (especially left-sided persistent weakness) ENT Denies dysphagia, Denies dizziness, Denies otalgia, Denies headache(s), Denies neck pain, Denies odynophagia and Denies sore throat Card Denies chest pain, Denies irregular heart rhythm, Denies palpitations and Denies dyspnea Resp Denies chest congestion, Denies cough and Denies dyspnea GI Denies abdominal pain, Denies constipation, Denies dysphagia, Denies heartburn, Denies diarrhea, Denies nausea, Denies odynophagia and Denies vomiting Denies difficulty voiding, Denies nocturia, Denies dysuria and Denies urinary urgency Musc Reports back pain (over the lower back), Reports arthralgias (over both hips and in the left knee), Denies joint swelling, Denies muscle weakness and Denies neck pain Skin/Breast Denies rash Neuro Denies dizziness, Reports frequent falls, Denies headache(s), Reports memory loss (slowly progressing over the past few years), Denies paresthesias and Reports weakness (especially left-sided persistent weakness) Psych Reports anxiety, Reports depression and Reports memory loss (slowly progressing over the past few years) Endo Reports fatigue and Denies palpitations Teja/Lymph Denies easy bruising Physical exam (Primary Care) Vital Signs: Last Vital Signs Pulse 88 04/08/25 14:41 BP 142/70 H 04/08/25 14:41 Pulse Ox 94 04/08/25 14:41 Oxygen Delivery Method Room Air 04/08/25 14:41 BMI result Body Mass Index 26.9 Tobacco/Smoking Status: Tobacco use Status Tobacco use date assessed 04/08/25 04/08/25 14:49 Patient Tobacco Use Status Former Tobacco user 04/08/25 14:49 e-Cigarette/Vaping Use Never Used 04/08/25 14:49 PHQ-9: PHQ-9 Score PHQ-9: Total score 13 04/10/25 10:38 Depression Screening Interpretation: Positive Depression Screening Follow-up: Existing condition and In treatment Thrive Assessment: Date of Thrive Assessment Date Thrive assessed 04/08/25 04/08/25 14:49 Currently or been in a relationship where the following occur: No concerns reported Const General: no acute distress and alert HENMT Ears: TM's normal bilaterally and EAC's normal Throat: Yes posterior oropharynx normal and Yes tonsils normal (no TP congestion) Neck Neck: Yes supple and No lymphadenopathy Thyroid: Thyroid normal Resp Auscultation: clear to auscultation bilaterally, no rales and no wheezes Cardio Rate: regular rate Rhythm: regular rhythm Heart sounds: no murmurs GI Palpation (GI): Soft to palpation and nontender Auscultation: normal bowel sounds General: Yes no CVA tenderness Back/Spine/Pelvis Back: no CVA tenderness Cervical Spine: Cervical spine tenderness Thoracic/Lumbar Spine: lumbar spinal tenderness Skin Rashes: no rashes Neuro Other: (+) left-sided hemiparesis involving both the left upper and left lower extremities Extrem General: Yes no clubbing, cyanosis or edema Right lower extremity: hip/thigh Details: tenderness Location: of the hip Left lower extremity: hip/thigh Details: tenderness Location: of the hip Results Reviewed Results Reviewed: Laboratory Tests 02/23/25 02/23/25 03/12/25 14:32 14:36 19:12 WBC 6.5 Hgb 10.7 L Hct 31.2 L Plt Count 183 Sodium 137 Potassium 4.8 Creatinine 0.83 Estimated GFR > 60 Random Glucose 77 Fasting Glucose 89 Calcium 8.9 D Magnesium 2.1 AST 38 H ALT 17 Triglycerides 41 Cholesterol 114 LDL Cholesterol, Calc 43 HDL Cholesterol 63 Ur Specific [place] >= 1.030 H Urine Protein 30 (1+) H Urine Glucose (UA) Negative Urine Blood Trace H Urine Nitrite Positive H Ur Leukocyte Esterase Moderate (2+) H TB Test (T-Spot) Com Negative Coding Level of Care Code Est Pt Level 4 (22692) Complex EM visit Add On G2211 Diagnoses Left-sided weakness R53.1 Dysarthria R47.1 Essential hypertension I10 Pure hypercholesterolemia E78.00 Dementia without behavioral disturbance, psychotic disturbance, mood disturbance, or anxiety, unspecified dementia severity, unspecified dementia type F03.90 Dementia behavioral or psychological symptom: without behavioral, psychotic, or mood disturbance or anxiety Dementia severity: unspecified severity Dementia type: unspecified type Osteoporosis without current pathological fracture, unspecified osteoporosis type M81.0 Osteoporosis type: unspecified Presence of current pathological fracture: without current pathological fracture GERD without esophagitis K21.9 Allergic rhinitis, unspecified seasonality, unspecified trigger J30.9 Allergic rhinitis seasonality: unspecified Allergic rhinitis trigger: unspecified Neck pain M54.2 Midline low back pain without sciatica, unspecified chronicity M54.50 Back pain laterality: midline Chronicity: unspecified Sciatica presence: without sciatica Bilateral primary osteoarthritis of hip M16.0 Left knee pain, unspecified chronicity M25.562 Chronicity: unspecified Anxiety F41.9 Bipolar 1 disorder F31.9 Overweight (BMI 25.0-29.9) E66.3 Additional Codes PHQ-9 - 39263 - PHQ-9 Billing: Yes ([id number]) Assessment & Plan Assessment & Plan (1) Left-sided weakness: Code(s): R53.1 - Weakness Category: Medical Plan: Patient apparently suffered some sort of neurologic event back in late September 2024 although her brain imaging studies (including CT, CTA and MRI) all showed only non-specific changes like involutional changes and nonspecific white matter hypodensity on her head CT and scattered foci of T2 hyperintensity within the white matter likely secondary to small-vessel ischemic change on her brain MRI 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 seen on her head and neck CT but there were no acute changes to indicate SPECK DYER hemorrhage or infarct to help explain her recent left-sided hemiparesis and dysarthria Of note, patient reportedly has had a few syncopal episodes, was falling a lot and was getting progressively forgetful while she was still residing in [place] last year that prompted her children to get her to move here to [facility] where they can better take care of her and watch her - it is unclear if these syncopal episodes were actually precursors to her recent SPECK DYER event and were also some form of TIAs She has been referred to neurology previously and was scheduled to be seen on 12/20/2024 but she reported that her appointment was rescheduled She has also been previously referred to cardiology for further work ups of her recurrent syncopal episodes and she was seen in December 2024 and was sent for further evaluation, including a tilt-table test, which came back positive She was eventually taken off her nifedipine 60 mg completely and patient states that his symptoms improved subsequently with no recurrence of her dizziness or syncopal episodes since She also had an echocardiogram done a few months ago that came out mostly normal - the left ventricular systolic function is normal. The calculated ejection fraction is 59% by biplane method and no obvious valvular pathology was seen on this study. There is however, (+) moderate plaque seen in the sino tubular ridge on her recent echo (2) Dysarthria: Code(s): R47.1 - Dysarthria and anarthria Category: Medical Plan: Patient also has had persistent dysarthria/slurring of speech since her hospital admission a couple of months ago She has been referred to Speech and Hearing for further evaluation and management/speech therapy (3) Essential hypertension: Code(s): I10 - Essential (primary) hypertension Category: Medical Plan: Reinforced low sodium diet - goal is systolic BP of at least 130 to 140 mm or less She was previously on Nifedipine ER 60 mg QD but was taken off this completely since her tilt-table test came back positive a couple of months ago (4) Pure hypercholesterolemia: Code(s): E78.00 - Pure hypercholesterolemia, unspecified Category: Medical Plan: Results of her labs done last month reviewed and discussed with patient Reinforced low cholesterol diet Continue Atorvastatin 80 mg QD Will recheck her labs and fasting lipids in 4 months for follow-up (5) Dementia: Code(s): F03.90 - Unspecified dementia, unspecified severity, without behavioral disturbance, psychotic disturbance, mood disturbance, and anxiety Category: Medical Qualifiers: Dementia behavioral or psychological symptom: without behavioral, psychotic, or mood disturbance or anxiety Dementia severity: unspecified severity Dementia type: unspecified type Qualified Code(s): F03.90 - Unspecified dementia, unspecified severity, without behavioral disturbance, psychotic disturbance, mood disturbance, and anxiety Plan: Continue Memantine 5 mg BID Per request, patient has been referred to neurology for further evaluation and management (6) Osteoporosis: Code(s): M81.0 - Age-related osteoporosis without current pathological fracture Category: Medical Qualifiers: Osteoporosis type: unspecified Presence of current pathological fracture: without current pathological fracture Qualified Code(s): M81.0 - Age-related osteoporosis without current pathological fracture Plan: Patient reportedly last had a bone density scan done in [place] sometime in the past 1 to 2 years although she does not know how her scan came out She has been on Ibandronate 150 mg once a month supposedly for almost 2 years now but she is not exactly sure as to when she started on this She was therefore sent for a repeat BMD for follow up - BMD done on 10/22/2024 revealed that the bone mineral density of the lumbar spine is 1.186 with a T-score of 0.1, and a Z-score of 1.9 nd the bone mineral density of the distal radius is 0.656 with a T-score of -2.5, and a Z-score of 0.2, consistent with her diagnosis of osteoporosis As we do not have her previous BMD for comparison, we will go ahead and consider this as her index screen to help guide her treatment going forward (7) GERD without esophagitis: Code(s): K21.9 - Gastro-esophageal reflux disease without esophagitis Category: Medical Plan: Dietary restrictions reinforced Continue Pantoprazole 40 mg QD and Famotidine 20 mg BID PRN (8) Allergic rhinitis: Code(s): J30.9 - Allergic rhinitis, unspecified Category: Medical Qualifiers: Allergic rhinitis seasonality: unspecified Allergic rhinitis trigger: unspecified Qualified Code(s): J30.9 - Allergic rhinitis, unspecified Plan: Continue Fluticasone 50 mcg nasal spray QD PRN - Rx refilled (9) Neck pain: Code(s): M54.2 - Cervicalgia Category: Medical Plan: Have advised patient again that her recent right-sided neck pain may be referred pain from her cervical spine Cervical spine x-rays done in August 2024 revealed (+) reversal of the normal cervical lordosis which may be positional or related to muscular spasm. There is (+) chronic grade 1 retrolisthesis of C5 on C6 and multilevel degenerative disc disease and bilateral facet arthropathy, most prominent at C4-C7 Cervical spine CT done in late September 2024 revealed (+) multilevel cervical spondylosis resulting in grade 1 anterolisthesis at C3-4 without gross acute fracture, and a questionable small 5 mm diverticulum at the 7 o'clock position at the upper trachea (10) Low back pain: Code(s): M54.50 - Low back pain, unspecified Category: Medical Qualifiers: Back pain laterality: midline Chronicity: unspecified Sciatica presence: without sciatica Qualified Code(s): M54.50 - Low back pain, unspecified Plan: Reinforced activity and weight-lifting restrictions Lumbar spine x-rays done in August 2024 revealed no new compression fractures but there is a slight to mild eccentric wedge deformity at L4 not appearing significantly changed. There are also (+) multilevel degenerative changes and retrolisthesis at L1-L2 She was on Gabapentin 300 mg TID for her low back pain previously but this was discontinued a couple of months ago when there were concerns that her neurologic symptoms then could have been side effects from her Gabapentin Continue Cyclobenzaprine 10 mg Q HS PRN (11) Bilateral primary osteoarthritis of hip: Code(s): M16.0 - Bilateral primary osteoarthritis of hip Category: Medical Plan: She reports experiencing increasing pain in both hips lately, with pain slightly worse in the left hip Patient states that she's had total arthroplasty of both hips done in [place] a few years ago with her left hip surgery done more recently in 2022 and she is concerned that her recent hip pain may be related to her arthroplasty She was sent for bilateral hip x-rays (done in August 2024) which revealed (+) moderate bilateral hip OA. There are changes of left femoral ORIF without evidence of hardware complication and healed left intertrochanteric fracture with prominent new bone/callus formation. There are partially visualized right femoral orthopedic screws without evidence of hardware complication She was referred to and seen by Orthopedics last month receive some cortisone injections into her hips, which she states helped somewhat She was advised that she is not a candidate for surgical intervention Follow-up with orthopedics as scheduled or as needed (12) Left knee pain: Code(s): M25.562 - Pain in left knee Category: Medical Qualifiers: Chronicity: unspecified Qualified Code(s): M25.562 - Pain in left knee Plan: Patient also reports that she's had total arthroplasty of both knees done in [place] a few years ago and she is concerned about her recent knee pain Left knee x-rays done in August 2024 revealed (+) findings of total left knee arthroplasty without evidence of complication, with (+) trace joint effusion (13) Anxiety: Code(s): F41.9 - Anxiety disorder, unspecified Category: Medical Plan: Continue Doxepin 10 mg Q HS, Buspirone 20 mg BID and Bupropion XL 150 mg Q AM (14) Bipolar 1 disorder: Code(s): F31.9 - Bipolar disorder, unspecified Category: Medical Plan: Continue Vanlafaxine ER 225 mg Q AM, Lamotrigine 250 mg (200 mg + 25 mg x 2) QD, Vraylar 3 mg QD and Bupropion XL 150 mg Q AM Per request, she was referred to psychiatry and she is scheduled to see her therapist/psychiatrist sometime next week for follow up (15) Overweight (BMI 25.0-29.9): Code(s): E66.3 - Overweight Category: Medical Plan: Per patient, she's had a Mabel-en-Y gastric bypass surgery years ago and has lost about 120 pounds or more since her surgery Continue Pantoprazole 40 mg QD and she is reminded to completely avoid taking any NSAIDs to prevent the development of ulcers, especially marginal ulcers Plan Follow up in 4 months Orders: Orders Complete Blood Count Auto Diff 4 Months D64.9 - Anemia, unspecified TSH reflex Free T4 4 Months E78.00 - Pure hypercholesterolemia, unspecified Vitamin B12 and Folate 4 Months E53.8 - Deficiency of other specified B group vitamins Comprehensive [place]. Panel Fast 4 Months E78.00 - Pure hypercholesterolemia, unspecified Lipid Panel 4 Months E78.00 - Pure hypercholesterolemia, unspecified UA CC w/rflx Micro + Cult 4 Months R30.0 - Dysuria Vitamin D 25-OH Total 4 Months E55.9 - Vitamin D deficiency, unspecified
== END 2025-04-08 15:25 | disposition home or self-care (01) ==
LOC: HO.HMCH 14:34
PROVIDERS: PCP Internal Medicine; Visit Provider Internal Medicine
DX: R53.1 Weakness (principal); R47.1 Dysarthria and anarthria; I10 Essential (primary) hypertension; E78.00 Pure hypercholesterolemia, unspecified; F03.90 Unspecified dementia, unspecified severity, without behavioral disturbance, psychotic disturbance, mood disturbance, and anxiety; M81.0 Age-related osteoporosis without current pathological fracture; K21.9 Gastro-esophageal reflux disease without esophagitis; J30.9 Allergic rhinitis, unspecified; M54.2 Cervicalgia; M54.50 Low back pain, unspecified; M16.0 Bilateral primary osteoarthritis of hip; F31.9 Bipolar disorder, unspecified; M25.562 Pain in left knee; F41.9 Anxiety disorder, unspecified; E66.3 Overweight

== ENCOUNTER → 2025-04-08 14:33 | Outpatient (BNVA) | payer OTHER, SELFPAY | PROVIDERS: PCP Internal Medicine; Visit Provider Internal Medicine | DX: R53.1 Weakness (principal); R47.1 Dysarthria and anarthria; I10 Essential (primary) hypertension; E78.00 Pure hypercholesterolemia, unspecified; F03.90 Unspecified dementia, unspecified severity, without behavioral disturbance, psychotic disturbance, mood disturbance, and anxiety; M81.0 Age-related osteoporosis without current pathological fracture; K21.9 Gastro-esophageal reflux disease without esophagitis; J30.9 Allergic rhinitis, unspecified; M54.2 Cervicalgia; M54.50 Low back pain, unspecified; M16.0 Bilateral primary osteoarthritis of hip; M25.562 Pain in left knee; F41.9 Anxiety disorder, unspecified; F31.9 Bipolar disorder, unspecified; E66.3 Overweight; Z68.26 Body mass index [BMI] 26.0-26.9, adult; Z79.899 Other long term (current) drug therapy; Z13.31 Encounter for screening for depression; Z13.39 Encounter for screening examination for other mental health and behavioral disorders | CPT/HCPCS: 96127; 99212 ==

== ENCOUNTER 2025-05-11 15:00 | Outpatient (RCR) | payer OTHER, SELFPAY ==
--- NOTE | 2025-09-06 13:34 | MHC.SL.SOA ---
Referring Provider: MD Kavin Reason for Referral: dysarthria, anarthria, and slurred speech Date of Plan of Treatment:01/04/25 Onset of Symptoms/Illness:06/22/24 Date Treatment Started:01/04/25 Medical Diagnosis: Primary Speech Language Diagnosis:Anomia Secondary Speech Language Diagnosis:I69.911 Memory deficit Number of Authorized Visits Remaining: Authorization End Date: Reason for Visit:Non-billable Event Other: Subjective:This note is to serve as an administrative discharge note for Brittany Martinez from Speech and Language Therapy provided by [facility]. Brittany was seen for weekly cognitive based therapy sessions from 02/23/25 to 05/11/25, with some missed sessions due to transportation issues or the Therapist's absence. Brittany was always highly engaged in therapy sessions, and receptive to gaining greater awareness and knowledge of her specific needs. Unfortunately, due to problems with transportation to and from the therapy sessions, intervention was suspended after her last session on 05/11/25. Discharge from therapy is indicated at this time, as there has been no further contact from Brittany about resolution of her transportation issues or desire to restart therapy. It was a pleasure working with Brittany during her time attending therapy at this clinic. Objective: Brittany practiced word finding and memory strategies in structured exercises. Assessment:1.1: Brittany demonstrated 60% accuracy on a task requiring identifying synonyms of target words in context. Given a story context, Brittany identified the targe word expected in the sentence with 80% accuracy. 4.1: Brittany, when given a one step direction with embedding information, imprecisely followed the direction (e.g. put two leaves on the stem of the flower - she yehuda two leaves beside the flower). When recued to attend to all of the information, she improved. When read a brief story with instructions to finish the story, Brittany initially responded with accuracy, however when given a story that was somewhat longer, she clearly stopped attending and inaccurately completed the task. When recued with the story and given the main cues/details she was able to complete the task. Notes: Brittany is dyslexic, and needs to be provided with materials in treatment that do not rely upon written language. Plan: Goal # : STG 1.1 Brittany will use association, visualization, and semantic strategies to recall specific words in context in 45 observed contexts Status of Goal: Discharge Goal Goal # : STG 2.1 Brittany will independently recall clear speech strategies with 100% accuracy. STG 2.2 Brittany will produce clear speech at the word level in structured practice in 80% of trials with moderate support. Status of Goal: Discharge Goal Goal # : STG 3.1 Brittany will name functional items with moderate support (i.e. phonemic cues) with 80% accuracy during confrontational naming tasks. STG 3.2 Brittany will contribute 6 features of semantic feature analysis with target word with minimal clinician support Status of Goal: Discharge Goal Goal # : STG 4.1 When given a 3-word list, Brittany will recall list upon immediate recall in 80% of opportunities when provided with moderate assistance. STG 4.2 When given a 3-word list, Brittany will recall list upon delayed recall in 80% of opportunities when provided with moderate assistance. Status of Goal: Discharge Goal Seen by: Graduate/Clinical Fellow: No Supervisory Statement: f_Reg Query Last Value , MHC.AU.SIGNATUR Speech Language Pathologist: Shonda Carreon M.A., CCC-AUTHORIZATION REPRESENTATIVE
== END 2025-09-07 12:43 | disposition home or self-care (01) ==
LOC: HO.SH 15:00
PROVIDERS: Visit Provider Internal Medicine
DX: R47.1 Dysarthria and anarthria (principal); R47.81 Slurred speech
CPT/HCPCS: 92507

== ENCOUNTER 2025-08-04 08:02 | Outpatient (REF) | payer OTHER, SELFPAY ==
[2025-08-04 08:18] LABS: MANUAL DIFF FLAG NO
--- OUTSIDE RECORDS SUMMARY | 2025-08-04 08:18 | XMS_ITS | Clinical Summary ---
Author Organization [employer] Address [address] [place] [address] Care Team Providers Care Clinical Research Nurse Coordinator Name Role Phone Unavailable Primary Care Provider [...] 75+ series) 01/05/2020 COVID-19 Vaccine ( - 2024-2 6 season) 2025 Influenza Vaccine (#1) 2025 HIB Vaccines [...] to complete this topic Insurance DENTAL - [facility] S[facility]
--- OUTSIDE RECORDS SUMMARY | 2025-08-04 08:18 | XMS_ITS | Continuity of Care Document ---
Author Name Ranjit Lindquist Address [address] [place] [id number] Organization Unknown Address [address] [place] [address] Medications No known medications Problems No known problems
--- OUTSIDE RECORDS SUMMARY | 2025-08-04 08:18 | XMS_ITS | Clinical Summary ---
Author Organization [facility] Address [address] [place] [address] Phone Care Team Providers Care Scene Painter Name Role Phone Jacob Vale MD Primary Care Provider [phone] Social History Tobacco Use Types Packs/Day Years [...] nts (1 - 1-dose 75+ series) 01/05/2020 Depression Screening 09/22/2024 Falls Risk Assessment 2025 Medicare Annual Wellness Visit 2025 Osteoporosis Screening (Bone Density Screening) 2025 Social Influencers of Health Screening 2025 COVID-19 Vaccine (2024-2 6 season) 2025 Influenza Vaccine (#1) 2025 [...] patient's age to complete this topic Insurance [facility] MEDIC[facility] Member Subscriber Plan / Payer (Ef fective 2025-Present) Name:Brittany Lundberg Relation to Subscriber:Self Name:Brittany Lundberg Payer ID:[id number] Group ID:[id number] Type:Not on file Address: [place] [address] [address] [id number] Care Teams Scene Painter Relationship Specialty Start Date End Date Jacob Vale MD [address] [place] [address] [place] PCP - General Internal Medicine 03/08/25
[2025-08-04 08:39] LABS: Hematocrit 37.2 % (37.0-47.0); Hemoglobin 12.0 g/dl (12.0-16.0); Imm Gran Abs Auto 0.02 X10*3/uL (0.00-0.03); Imm Gran Pct Auto 0.3 % (0.0-0.4); Lymphocytes Absolute Auto 1.6 X10*3/uL (1.2-4.9); Mean Corpuscular HGB Conc 32.3 g/dl (31.0-35.0); Mean Corpuscular Hemoglobin 31.9 pg (27.0-33.0); Mean Corpuscular Volume 98.9 fL (80.0-98.0); NRBC Abs Auto 0.000 X10*3/uL (0.0-0.012); NRBC Pct Auto 0.0 /100WBC (0.0-0.2); Platelet Count 158 X10*3/uL (160-400); Red Blood Count 3.76 X10*6/uL (4.20-5.50); White Blood Count 6.2 X10*3/uL (4.8-10.8)
[2025-08-04 08:54] LABS: Appearance Urine Clear; Glucose Urine UA Negative (Negative); PH 7.0 (5.0-9.0); Specific Gravity - Urine 1.020 (1.005-1.025); UMIC TRIGGER UACC YES
[2025-08-04 09:24] LABS: Alanine Aminotransferase 27 U/L (0-31); Albumin Level 4.2 g/dL (3.5-5.0); Alkaline Phosphatase 91 U/L (39-117); Anion Gap 12 (12-20); Aspartate Amino Transferase 43 U/L (5-31); Blood Urea Nitrogen 18 mg/dL (9-16); Calcium 9.0 mg/dL (8.4-10.2); Carbon Dioxide 25 mmol/L (22-29); Chloride 110 mmol/L (96-108); Cholesterol 102 mg/dL (<200); Estimated Glomerular Filt Rate 54; HDL Cholesterol 52 mg/dL (>40); Potassium 4.1 mmol/L (3.3-5.1); Sodium 143 mmol/L (135-145); Total Protein 7.7 g/dL (6.5-8.0); Triglycerides 45 mg/dL (<150)
[2025-08-04 09:53] LABS: Folate 10.5 ng/mL (> or = 4.0); Vitamin B12 770 pg/mL (200-900)
== END 2025-08-04 08:03 | disposition home or self-care (01) ==
LOC: HO.LAB 08:02
PROVIDERS: PCP Internal Medicine; Visit Provider Internal Medicine
DX: E53.8 Deficiency of other specified B group vitamins (principal); D64.9 Anemia, unspecified; E78.00 Pure hypercholesterolemia, unspecified; E55.9 Vitamin D deficiency, unspecified
CPT/HCPCS: 36415; 80053; 80061; 81001; 82306; 82607; 82746; 84443; 85025

== ENCOUNTER 2025-08-09 14:22 | Outpatient (AMB) | payer OTHER, SELFPAY ==
--- OUTSIDE RECORDS SUMMARY | 2014-10-31 09:45 | XMS_ITS | Continuity of Care Document ---
Author Organization [facility] Address [address] [place] [address] Phone Care Team Providers Care Environmental Services Floor Tech Name Role Phone Kervin DIAZ, [place] Unavailable Unavailable Allergies, Adverse Reactions, Alerts Substance Reaction Status Criticality No Known allergies Medications Medication Instructions Dosage Effective Dates (start - stop) Status Comments Restasis 0.05 % eye drops in a dropperette instill 1 drop by ophthalmic route every 12 hours into affected eye(s) 1.00 drop - Active Bepreve 1.5 % eye drops instill 1 drop by ophthalmic route 2 times every day into affected eye(s) 1.00 drop - Active Procedures Procedure Date Ophth Serv: Med Exam ; Comp Est 015 Ophth Exten W/ret Draw W/ I&r 5 Ophth Exten W/ret Draw W/ I&r 5 OCT Retina Current Medications Documented 15 TOBACCO NON-USER Ophth Serv: Exam; Comp New Current Medis Not Documented, Pt Not Cristina igible TOBACCO NON-USER Ophth Serv: Exam; Comp New Ophthalmoscopy Extended Ophthalmoscopy Extended OCT Retina Advance Directives Directive Yes / No Effective Date File Name No Information Encounters Encounter Description Practice Location Reason(s) For Visit Diagnoses Date Provider Providers Copied on Encounter [facility], [address], [place], [address], tel:[phone] [facility] [place] Dry eyes (chief complaint) Vitreous detachmentsMa cular pucker 5 Kervin DIAZ Lutz. [address], [address], [place], [place], [address] [place] [address] , . tel:[phone] [facility], [address] [facility] [address], [place], [facility], tel:[phone] [facility] [place] No Information 4 Madalyn Elizalde. [address], [place], [address] [place] [address] . tel:[phone] [facility], [address] [facility] [address], [place], [facility], tel:[phone] [facility] [place] Posterior Vitreous Detachment 4 Kervin Garcíaid. [address], [address], [place], [address] [place] [address] , . tel:[phone] Family History Family Member Type Diagnosis Age At Onset Grandmother (m) Problem (finding) Sister Problem (finding) Diabetes mellitus Aunt Problem (finding) Diabetes mellitus Father Problem (finding) Diabetes mellitus Grandmother (m) Problem (finding) Diabetes mellitus Payers Payer name Insurance type Covered democrat ID Authoriza tion(s) Medicare Part B [id number] [facility] CI [id number] Social History Type Description Quantity Date Captured Comments Sex Female Smoking Status No Information Chief Complaint And Reason For Visit From encounter dated '10/31/2014 14:45'. Dry eyes (chief complaint). Description: The 69 year old female presents for evaluation of Dry eyesh/o v d IOL ou pt c//o dry eyes wants restasis Reason For Referral Reason For Referral No Information History Of Present Illness Encounter Date Complaint History Of Prese nt Illness Dry eyes The 69 year old female presents for evaluation of Dry eyes h/o v d IOL ou pt c//o dry eyes wants restasis Functional Status Date Functional Assessmen t No Information Instructions Date Instruction Additional Infor casi Return in 1 year for complete ex am. Related to Vitreous detachments Impression/Plan - Di scussed diagnosis in detail with patient. Discussed treatment options with patient. Advised patient of condition. Patient instructed to call if condition gets worse. No progression expected. Call if VA worsens.restasis ou bid Related to Vitreous detachments Follow up - Return i n 1 year for complete exam. 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 Discussed treatment options with patient. Advised patient of condition. Patient instructed to call if condition gets worse. No progression expected. Call if VA worsens. Related to Vitreous detachments - Return in 6 months. Assessments Type Assessment Date assessment Vitreous detachments impression Vitreous detachments partial oun o breaksiol ouallergic sx ou impression Macular pucker: 362.56. 015 assessment Macular pucker Patient Care Teams Name Effective Dates (start - stop) Status Members No Information
--- OUTSIDE RECORDS SUMMARY | 2015-12-13 19:00 | XMS_ITS | Continuity of Care Document ---
Author Organization [id number] Address [address] [place] [address] Phone Care Team Providers Care Dry Talc Racker Name Role Phone Mike Gimenez MD Unavailable Unavailable Procedures Procedure Date Spirometry Reading Advance Directives Directive Yes / No Effective Date File Name No Information Encounters Encounter Description Practice Location Reason(s) For Visit Diagnoses Date Provider Providers Copied on Encounter [id number], [address], [place], [place], [address], tel:[phone] [facility] No Information Pernell Mckeon. [address] [facility], [address], [place], [place], [address]. tel:[phone] Referring Provider: Bill Martel, [address], [place], [address]. tel:[phone] Family History Family Member Type Diagnosis Age At Onset No Information Payers Payer name Insurance type Covered libertarian ID Authoriza tion(s) No Information Social History Type Description Quantity Date Captured Comments Sex Female Smoking Status No Information Chief Complaint And Reason For Visit No Information Reason For Referral Reason For Referral No Information History Of Present Illness Encounter Date Complaint History Of Prese nt Illness No Information Functional Status Date Functional Assessmen t No Information Instructions Date Instruction Additional Infor mation No Information Assessments Type Assessment Date No Information Patient Care Teams Name Effective Dates (start - stop) Status Members No Information
--- OUTSIDE RECORDS SUMMARY | 2016-10-21 09:09 | XMS_ITS | Continuity of Care Document ---
Author Organization [id number] Address [address] [place] [address] Phone Care Team Providers Care Title Insurance Examiner Name Role Phone Rufus Alvarez MD Unavailable Unavailable Allergies, Adverse Reactions, Alerts Substance Reaction Status Criticality No Known Allergies Active No Inform ation Medications Medication Instructions Dosage Effective Dates (start - stop) Status Comments Antivert 25 mg tablet take 1 tablet by o ral route every 8 hours as needed for Vertigo 25 MG - Active Medrol (Fausto) 4 mg tablets in a dose pack take 1 Tablet by Oral route once 1 Tablet - Active bupropion HCl 100 mg tablet take 1 tablet by oral route 2 times every day 100 MG - Active levocetirizine 5 mg tablet take 1 tablet by oral route every day in the evening 5 MG - Active omeprazole 40 mg capsule,delayed release take 1 capsule by oral route every day before a meal 40 MG - Active temazepam 30 mg capsule take 1 capsule by oral route every day at bedtime as needed 30 MG - Active venlafaxine ER 150 mg tablet,extended release 24 hr take 1 tablet by oral route every day in the morning at the same time each day with food 150 MG - Active montelukast 10 mg tablet take 1 tablet by oral route every day in the evening 10 MG - Active alprazolam 0.5 mg tablet take 1 tablet by oral route 3 times every day 0.5 MG - Active alendronate 70 mg tablet take 1 tablet by oral route every week in the morning, at least 30 min before first food, beverage, or medication of day 70 MG - Active trazodone 50 mg tablet take 1 tablet by oral route 3 times every day after meals 50 MG - Active cyanocobalamin (vit B-12) 1,000 mcg/mL injection solution inject 0.1 milliliter by intramuscular route every month 100 MCG - Active Linzess 290 mcg capsule take 1 capsule by oral route every day on an empty stomach at least 30 minutes before 1st meal of the day 290 MCG - Active Procedures Procedure Date OFFICE/OUTPT EM EST DETAILED/MODERATE 25 MINS INJECTION ANESTHETIC AGENT SCIATIC NRV S ABBE OFFICE/OUTPT EM EST DETAILED/MODERATE 25 MINS NCS MOTOR &/SENS 7-8 PRECONF ELTRODE LEE B DUPLEX SCAN EXTRACRANIAL ART COMPL LISBET S TUDY OFFICE/OUTPT EM NEW COMPREH/MODERATE 45 MINS Offic/outpt E&m Estab Mod-hi 2 12 Offic/outpt E&m Estab Minor 10 12 Advance Directives Directive Yes / No Effective Date File Name No Information Encounters Encounter Description Practice Location Reason(s) For Visit Diagnoses Date Provider Providers Copied on Encounter [id number] - Neurology , [address], [place], [place], [address] , tel: [phone] [facility] No Information 7 Kim Hooper. [address], [id number] , . tel:[phone] OFFICE/OUTPT EM EST DETAILED/MOD ERATE 25 MINS [id number] - Neurology , [address], [place], [place], [address] , tel:[phone] [facility] Ashish Bilateral occipital neuralgiaSensory neuropathyVertigoBila teral sciatica 6 Kim Hooper. [address] [facility] [address], [place], [address] , . tel:[phone] Referring Provider: Rufus Alvarez, [address] [facility] [address], [place], [address] . tel:[phone] OFFICE/OUTPT EM EST DETAILED/MOD ERATE 25 MINS [id number] - Neurology , [address], [place], [place], [address] , [place] tel: [phone] [facility] Sensory neuropathyBilateral occipital neuralgiaBilateral sciaticaVertigo 6 Cutie Rufus. [address], [place], [place], [address] , [place]. tel: [phone] Referring Provider: Rufus Alvarez, [address], [place], [address] . tel:[phone] [id number] - Neurology , [address], [place], [place], [address] , [place] tel: [phone] [facility] Ataxia of both legsSciatica, left side 6 Cutie Rufus. [address], [place], [place], [address] , [place]. tel:[phone] Referring Provider: Rufus Alvarez, [address], [place], [address] . tel:[phone] [id number] - Neurology , [address], [place], [place], [address] , tel: [phone] [facility] No Information 6 Cutie Rufus. [address], [place], [place], [address] , . tel: [phone] Referring Provider: Rufus Alvarez, [address], [place], [address] . tel:[phone] OFFICE/OUTPT EM NEW COMPREH/MODE RATE 45 MINS [id number] - Neurology , [address], [place], [place], [address] , [place] tel:[phone] [facility] Dizziness (chief complaint) DizzinessAtaxiaBilate ral occipital neuralgiaSciatic neuralgia, left 6 Cutie Rufus. [address], [place], [place], [address] , [place]. tel:[phone] Referring Provider: Bill Martel, [address], [place], [address]. tel:[phone] Offic/outpt E&m Estab Mod-hi 2 [id number] - Neurology , [address], [place], [place], [address] , [place] tel:[phone] [facility] No Information 2 Sandro Gill. [address] [place], [place], [address] , [place]. tel:[phone] Referring Provider: Jairo Jo, [address] [place], [address] . tel:[phone] Offic/outpt E&m Estab Minor 10 [id number] - Neurology , [address], [place], [place], [address] , tel:[phone] [facility] No Information 2 Kat Hawkins. [address] [place] [address], [address], [place], [address]. tel:[phone] Referring Provider: Ross Nance, [address] [place] [address] [address], [place], [address]. tel:[phone] Family History Family Member Type Diagnosis Age At Onset Father Problem (finding) Brother Problem (finding) Mother Problem (finding) Payers Payer name Insurance type Covered constitution party ID Authoriza tion(s) No Information Social History Type Description Quantity Date Captured Comments Alcohol Use Details Unknown Caffeine Use Details Unknown Tobacco Use Status No Information Smoking Status No Information Sex Female Chief Complaint And Reason For Visit No Information Reason For Referral Reason For Referral No Information Plan Of Treatment Date Type Action Status Patient Education Neuropathic Jamison in: Care Instructions completed Future Order: Radiology Order Ne rve Block ([id number]), Ordered on: Ordered Future Order: Radiology Order Ne rve Block ([id number]), Ordered on: Ordered Future Order: Lab Order RPR ([id number]), Ordered on: Ordered Future Order: Lab Order Vitamin B12 and Folate ([id number]), Ordered on: Ordered Future Order: Lab Order TSH ([id number]), Ordered on: Ordered Future Order: Lab Order Homocyst eine ([id number]), Ordered on: Ordered Future Order: Lab Order Sed rate ([id number]), Ordered on: Ordered Future Order: Radiology Order Du plex scan of extracranial arteries; complete bilateral study ([id number]), Ordered on: Ordered Future Order: Radiology Order Ne rve Block ([id number]), Ordered on: Ordered Future Order: Radiology Order NC V (w/o EMG) X___Lmbs ([id number]), Ordered on: Ordered History Of Present Illness Encounter Date Complaint History Of Prese nt Illness Dizziness Functional Status Date Functional Assessmen t No Information Instructions Date Instruction Additional Infor mation No Information Assessments Type Assessment Date No Information Patient Care Teams Name Effective Dates (start - stop) Status Members No Information
--- OUTSIDE RECORDS SUMMARY | 2016-12-16 08:15 | XMS_ITS | Continuity of Care Document ---
Author Organization [id number] Address [address] [place] [address] Phone Care Team Providers Care Internal Investigator Name Role Phone Emily DIAZ, Traci Unavailable Unavailable Allergies, Adverse Reactions, Alerts Substance Reaction Status Criticality No Known allergies Procedures Procedure Date OFFICE/OUTPT EM EST EXP PROB FOCUS/LOW 1 5 MINS VOID OFFICE/OUTPT EM EST DETAILED/MODERATE 25 MINS ARTHROCENTESIS ASPIRATE/INJECTION MAJOR JT/BURSA triamcinolone acetonide NOS inj, 10 mg J OFFICE/OUTPT EM EST DETAILED/MODERATE 25 MINS XRAY SHOULDER 2 OR 3 VIEWS OFFICE/OUTPT EM EST DETAILED/MODERATE 25 MINS OFFICE/OUTPT EM EST DETAILED/MODERATE 25 MINS OFFICE/OUTPT EM NEW COMPREH/MODERATE 45 MINS XRAY BOTH KNEES STANDING 1 VIEW 016 XRAY KNEE UNILATERAL 1 OR 2 VIEWS ARTHROCENTESIS ASPIRATE/INJECTION MAJOR JT/BURSA triamcinolone acetonide NOS inj, 10 mg A Advance Directives Directive Yes / No Effective Date File Name No Information Encounters Encounter Description Practice Location Reason(s) For Visit Diagnoses Date Provider Providers Copied on Encounter OFFICE/OUTPT EM EST EXP PROB FOCUS/LOW 15 MINS [id number] [facility], [address], [place], [address], [place] tel:[phone] [facility] Follow Up of left shoulder pain. (chief complaint) Impingement syndrome of unspecified shoulder Nov-10 29- 7 Emily Aviles. [address], [place], [place], [address], [place]. tel:[phone] Referring Provider: Traci Diaz, [address], [place], [address] . tel:[phone] [facility], [address], [place], [place], [facility], [place] tel:[phone] [facility] [address] Impingement syndrome of left shoulder Nov-0 7 Emily Aviles. [address], [place], [place], [address], [place]. tel:[phone] Referring Provider: Yg Saul A, [address], [place], [address]. tel:[phone] OFFICE/OUTPT EM EST DETAILED/MOD ERATE [address] [facility], [address], [place], [place], [facility], [place] tel:[phone] [facility] [address] Follow Up of left shoulder pain. (chief complaint) Impingement syndrome of shoulder, left 7 Emily Aviles. [address], [place], [place], [address], [place]. tel:[phone] Referring Provider: Trcai Diaz, [address], [place], [address] . tel:[phone] OFFICE/OUTPT EM EST DETAILED/MOD ERATE 25 MINS [id number] [facility], [address], [place], [address], [place] tel:[phone] [facility] [address] pt c/o bilat shoulder pain. (chief complaint) Shoulder impingement syndrome, unspecified laterality 7 Emily Carlinevaleryluci. [address], [place], [place], [address], [place]. tel:[phone] Referring Provider: Traci Diaz, [address], [place], [address] . tel:[phone] OFFICE/OUTPT EM EST DETAILED/MOD ERATE 25 MINS [id number] [facility], [address], [place], [address], [place] tel:[phone] [facility] [address] Follow Up of bilat knee pain. (chief complaint) Primary osteoarthritis of left knee 6 Emily Traci. [address], [place], [place], [address], [place]. tel:[phone] Referring Provider: Bill Martel, [address], [place], [address]. tel:[phone] OFFICE/OUTPT EM EST DETAILED/MOD ERATE 25 MINS [id number] [facility], [address], [place], [address], [place] tel:[phone] [facility] [address] pt c/o left hip pain. (chief complaint) DDD (degenerative disc disease), lumbar 6 Emily Natalyabdijoel. [address], [place], [place], [address], [place]. tel:[phone] Referring Provider: Traci Diaz, [address], [place], [address] . tel:[phone] OFFICE/OUTPT EM NEW COMPREH/MODE RATE 45 MINS [id number] [facility], [address], [place], [address], [place] tel:[phone] [facility] [address] pt c/o bilat knee pain (chief complaint) Status post total right knee replacementPrimary osteoarthritis of left knee 6 Emily Aviles. [address], [place], [place], [address], [place]. tel:[phone] Referring Provider: Traci Diaz, [address], [place], [address] . tel:[phone] Family History Family Member Type Diagnosis Age At Onset No Information Payers Payer name Insurance type Covered green party ID Authoriza tion(s) Medicare Part B Participatin g Providers [id number] [facility] [id number] Social History Type Description Quantity Date Captured Comments Alcohol Use Details No Caffeine Use Details coffee 3 cups per day Tobacco Use Status Never smoked tobacco 2016 Smoking Status Never smoker Non-Smoking Tobacco Use Details : No Details Available : No Details Available Sex Female Chief Complaint And Reason For Visit From encounter dated '12/16/2016 13:15'. Follow Up of left shoulder pain. (chief complaint) Reason For Referral Reason For Referral No Information Plan Of Treatment Date Type Action Status Future Order: Radiology Order Pe lvis X-ray (1 or 2 views) ([id number]), Ordered on: Ordered Future Order: Radiology Order Neelam mbar Spine X-ray (including sacrum) (Limited, 2 or 3 views) ([id number]), Ordered on: Ordered Future Order: Radiology Order Kn ees X-ray, Bilateral (Standing, AP view) ([id number]), Ordered on: Ordered Future Order: Radiology Order Kn ee X-ray; Limited (1 or 2 views) ([id number]), Ordered on: Ordered History Of Present Illness Encounter Date Complaint History Of Prese nt Illness Follow Up of left shoulder pain. Follow Up of left shoulder pain. pt c/o bilat shoulder pain. Follow Up of bilat knee pain. pt c/o left hip pain. pt c/o bilat knee pain Functional Status Date Functional Assessmen t No Information Instructions Date Instruction Additional Infor mation No Information Assessments Type Assessment Date No Information Patient Care Teams Name Effective Dates (start - stop) Status Members No Information
[2025-08-09 14:29] VITALS: BP 140/92; PULSE 86; O2SAT 96; BMI 27.0
--- NOTE | 2025-08-09 14:29 | MHC.PC.OV ---
Vital Signs 08/09/25 14:29 Height 4 ft 11 in Weight 133 lb 8 oz BMI 27.0 BP 140/92 H Blood Pressure Location Lt brachial Position Sitting Pulse 86 Pulse Source Pulse Oximeter Pulse Oximetry (%) 96 Oxygen Delivery Method Room Air Intake Visit Reasons: 4mth f/u Direct Marketing Manager Required: No Accompanied by: Self / Same As Patient Allergies No Known Allergies Allergy (Verified 08/09/25 15:12) Medication List - Last Reconciled 08/09/25 by Jacob Vale MD albuterol sulfate 90 mcg/actuation 2 puffs inhalation Q4-6H PRN atorvastatin 80 mg PO DAILY benzonatate 200 mg PO BID-TID PRN bupropion HCl XL 150 mg PO DAILY 90 days buspirone 20 mg PO BID cariprazine (Vraylar) 3 mg PO DAILY 30 days cyclobenzaprine 10 mg PO BEDTIME 90 days fluticasone propionate 50 mcg/actuation 1 spray intranasal DAILY PRN ibandronate 150 mg PO Q28D 3 months meclizine 25 mg PO BEDTIME PRN memantine 20 mg (2 x 10 mg) PO DAILY Tobacco use date assessed: 08/09/25 Fall risk assessment: 2 + Falls in past year Last assessed Fall Risk: 08/09/25 Dental Screening Dental Screen Date: 08/09/25 Did you have a dental visit in the last 12 months?: Yes Did you have a dental problem in the last 6 months where you did not have access to dental care?: No Was dental information given to patient?: Patient has dentist HPI 4mt f/u HPI Details - The patient is an 80-year-old female presenting for a follow-up visit for chronic condition management and review of lab results. - Recent blood work was reviewed and noted to be good, with stable cholesterol, blood sugar, kidney, and liver function. - The patient reports experiencing a tremor in both hands, which is characterized as a benign essential or intention tremor that she can voluntarily stop; it is not suggestive of Parkinson's disease. - She voices concern about dementia due to forgetting things, a problem she has had since she was young, and wishes to see a neurologist for evaluation. - The patient has been on medication for osteoporosis for approximately two years. - She reports having significant arthritis. - She reports taking pain medication as needed to help with muscle relaxation for sleep. - Her blood pressure was noted to be slightly elevated, which is unchanged from her last visit. She currently denies any headaches or dizziness Denies any chest pains, no increased shortness of breath No nausea/vomiting, no abdominal pain No change in bowel habits noted Needs a couple of her Rx refilled States that she had some follow-up labs done a few days ago - to discuss her results [facility] Medical History Dysarthria Ataxia Overweight (BMI 25.0-29.9) Bipolar 1 disorder GERD without esophagitis Allergic rhinitis Dementia Anxiety Osteoporosis Pure hypercholesterolemia Essential hypertension Depression Arthritis Surgical History History of cataract extraction History of Mabel-en-Y gastric bypass History of arthroplasty of right shoulder History of total hip arthroplasty History of total knee arthroplasty Hx of arthroscopic knee surgery Family History Other FH: mental illness Substance abuse Social History Household Members: Family Housing: House Do you presently have visiting nurse or other home services: No Alcohol intake: never Patient Tobacco Use Status: Former Tobacco user e-Cigarette/Vaping Use: Never Used Second Hand Smoke Exposure: Yes Advance Directives Date on File: 10/19/24 service: No Current occupational status: unemployed Current occupational exposures/hazards: No Cognitive needs: Yes (walker, cane) Hearing needs: No Vision needs: Yes (glasses) Female Reproductive History Menstrual Age of Menarche: 9 Questionnaire PHQ-9 Over the last 2 weeks, how often have you been bothered by any of the following problems? 1. Little interest or pleasure in doing things: more than half the days 2. Feeling down, depressed, or hopeless: several days 3. Trouble falling or staying asleep, or sleeping too much: more than half the days 4. Feeling tired or having little energy: nearly every day 5. Poor appetite or overeating: more than half the days 6. Feeling bad about yourself - or that you are a failure or have let yourself or your family down: not at all 7. Trouble concentrating on things, such as reading the newspaper or watching television: nearly every day 8. Moving or speaking so slowly that other people could have noticed. Or the opposite - being so fidgety or restless that you have been moving around a lot more than usual: not at all 9. Thoughts that you would be better off or of hurting yourself in some way: not at all Total score: 13 Depression Screening Interpretation: Positive Depression Screening Follow-up: Existing condition and In treatment Depression Screening Done: Yes 11826 - PHQ-9 Billing: Yes Source: Developed by Drs. Donovan Fierro, Deepa Bustamante, Nathaniel Lyons and colleagues, with an educational marquez from [employer]. Thrive Questionnaire Date Thrive assessed: 08/09/25 I am a: Patient What is your living situation today?: I have a place to live, but I am worried about losing it in the future Within the past 12 months, did the food you bought not last and you didn't have the money to get more?: Never true Within the past 12 months, did you worry whether your food would run out before you got money to buy more?: Never true Do you have trouble paying for medicines?: No Do you have trouble getting transportation to medical appointments?: Yes Do you have trouble paying your heating and electricity bill?: No Do you have trouble taking care of your child, family member or friend?: I choose not to answer this question Do you have trouble with day-to-day activities such as bathing, preparing meals, shopping, managing finances, etc.?: Yes Are you currently unemployed and looking for a job?: No Are you interested in more education?: No Currently or been in a relationship where the following occur: No concerns reported THRIVE Score: 2 AUDIT C Alcohol Use Questionnaire (AUDIT-C) 1. How often do you have a drink containing alcohol?: Never 3. How often do you have six or more drinks on one occasion?: Never Total Score: 0 Score Reviewed/Action Taken: Yes WYATT-7 AMB Questionnaire WYATT-7 Date WYATT - 7 assessed: 08/09/25 Feeling nervous, anxious, or on edge: 0 = Not at all Not being able to stop or control worryin = Not at all Worrying too much about different things: 0 = Not at all Trouble relaxin = Not at all Being so restless that it is hard to sit still: 0 = Not at all Becoming easily annoyed or irritable: 0 = Not at all Feeling afraid as if something awful might happen: 0 = Not at all Total WYATT-7 score (0-4 normal; 5-9 mild; 10-14 moderate; 15-21 severe): 0 Source: Developed by Drs. Donovan Fierro, Deepa Bustamante, Nathaniel Lyons and colleagues, with an educational marquez from [employer]. Review of Systems Const Denies chills, Reports fatigue, Denies fever(s), Reports frequent falls, Denies headache(s) and Reports weakness (especially left-sided persistent weakness) ENT Denies dysphagia, Denies dizziness, Denies otalgia, Denies headache(s), Denies neck pain, Denies odynophagia and Denies sore throat Card Denies chest pain, Denies irregular heart rhythm, Denies palpitations and Denies dyspnea Resp Denies chest congestion, Denies cough and Denies dyspnea GI Denies abdominal pain, Denies constipation, Denies dysphagia, Denies heartburn, Denies diarrhea, Denies nausea, Denies odynophagia and Denies vomiting Denies difficulty voiding, Denies nocturia, Denies dysuria and Denies urinary urgency Musc Reports back pain (over the lower back), Reports arthralgias (over both hips and in the left knee), Denies joint swelling, Denies muscle weakness and Denies neck pain Skin/Breast Denies rash Neuro Denies dizziness, Reports frequent falls, Denies headache(s), Reports memory loss (slowly progressing over the past few years), Denies paresthesias and Reports weakness (especially left-sided persistent weakness) Psych Reports anxiety, Reports depression and Reports memory loss (slowly progressing over the past few years) Endo Reports fatigue and Denies palpitations Teja/Lymph Denies easy bruising Physical exam (Primary Care) Vital Signs: Last Vital Signs Pulse 86 08/09/25 14:29 BP 140/92 H 08/09/25 14:29 Pulse Ox 96 08/09/25 14:29 Oxygen Delivery Method Room Air 08/09/25 14:29 BMI result Body Mass Index 27.0 Tobacco/Smoking Status: Tobacco use Status Tobacco use date assessed 08/09/25 08/09/25 14:32 Patient Tobacco Use Status Former Tobacco user 08/09/25 14:32 e-Cigarette/Vaping Use Never Used 08/09/25 14:32 PHQ-9: PHQ-9 Score PHQ-9: Total score 13 08/09/25 15:14 Depression Screening Interpretation: Positive Depression Screening Follow-up: Existing condition and In treatment Thrive Assessment: Date of Thrive Assessment Date Thrive assessed 08/09/25 08/09/25 14:44 Currently or been in a relationship where the following occur: No concerns reported Const General: no acute distress and alert HENMT Ears: TM's normal bilaterally and EAC's normal Throat: Yes posterior oropharynx normal and Yes tonsils normal (no TP congestion) Neck Neck: Yes supple and No lymphadenopathy Thyroid: Thyroid normal Resp Auscultation: clear to auscultation bilaterally, no rales and no wheezes Cardio Rate: regular rate Rhythm: regular rhythm Heart sounds: no murmurs GI Palpation (GI): Soft to palpation and nontender Auscultation: normal bowel sounds General: Yes no CVA tenderness Back/Spine/Pelvis Back: no CVA tenderness Cervical Spine: Cervical spine tenderness Thoracic/Lumbar Spine: lumbar spinal tenderness Skin Rashes: no rashes Neuro Other: (+) left-sided hemiparesis involving both the left upper and left lower extremities Extrem General: Yes no clubbing, cyanosis or edema Right lower extremity: hip/thigh Details: tenderness Location: of the hip Left lower extremity: hip/thigh Details: tenderness Location: of the hip Results Reviewed Results Reviewed: Laboratory Tests 08/04/25 08/04/25 08:11 08:17 WBC 6.2 Hgb 12.0 Hct 37.2 Plt Count 158 L Sodium 143 Potassium 4.1 Creatinine 0.99 Estimated GFR 54 Fasting Glucose 88 Calcium 9.0 AST 43 H ALT 27 Triglycerides 45 Cholesterol 102 LDL Cholesterol, Calc 41 HDL Cholesterol 52 Vitamin B12 770 25-OH Vitamin D Total 38.7 TSH 1.89 Ur Specific [place] 1.020 Urine Protein 30 (1+) H Urine Glucose (UA) Negative Urine Blood Negative Urine Nitrite Negative Ur Leukocyte Esterase Trace H Coding Level of Care Code Est Pt Level 4 (87662) Diagnoses Left-sided weakness R53.1 Dysarthria R47.1 Essential hypertension I10 Pure hypercholesterolemia E78.00 Dementia without behavioral disturbance, psychotic disturbance, mood disturbance, or anxiety, unspecified dementia severity, unspecified dementia type F03.90 Dementia behavioral or psychological symptom: without behavioral, psychotic, or mood disturbance or anxiety Dementia severity: unspecified severity Dementia type: unspecified type Osteoporosis without current pathological fracture, unspecified osteoporosis type M81.0 Osteoporosis type: unspecified Presence of current pathological fracture: without current pathological fracture GERD without esophagitis K21.9 Allergic rhinitis, unspecified seasonality, unspecified trigger J30.9 Allergic rhinitis seasonality: unspecified Allergic rhinitis trigger: unspecified Neck pain M54.2 Midline low back pain without sciatica, unspecified chronicity M54.50 Back pain laterality: midline Chronicity: unspecified Sciatica presence: without sciatica Bilateral primary osteoarthritis of hip M16.0 Left knee pain, unspecified chronicity M25.562 Chronicity: unspecified Anxiety F41.9 Bipolar 1 disorder F31.9 Overweight (BMI 25.0-29.9) E66.3 Additional Codes PHQ-9 - 50621 - PHQ-9 Billing: Yes ([id number]) Assessment & Plan Assessment & Plan (1) Left-sided weakness: Code(s): R53.1 - Weakness Category: Medical Plan: Patient apparently suffered some sort of neurologic event back in late September 2024 although her brain imaging studies (including CT, CTA and MRI) all showed only non-specific changes like involutional changes and nonspecific white matter hypodensity on her head CT and scattered foci of T2 hyperintensity within the white matter likely secondary to small-vessel ischemic change on her brain MRI 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 seen on her head and neck CT but there were no acute changes to indicate STOVE MOUNTER hemorrhage or infarct to help explain her recent left-sided hemiparesis and dysarthria Of note, patient reportedly has had a few syncopal episodes, was falling a lot and was getting progressively forgetful while she was still residing in [place] last year that prompted her children to get her to move here to [facility] where they can better take care of her and watch her - it is unclear if these syncopal episodes were actually precursors to her recent STOVE MOUNTER event and were also some form of TIAs She has been referred to neurology previously and was scheduled to be seen on 12/20/2024 but she reported that her appointment was rescheduled She has also been previously referred to cardiology for further work ups of her recurrent syncopal episodes and she was seen in December 2024 and was sent for further evaluation, including a tilt-table test, which came back positive She was eventually taken off her nifedipine 60 mg completely and patient states that his symptoms improved subsequently with no recurrence of her dizziness or syncopal episodes since She also had an echocardiogram done a few months ago that came out mostly normal - the left ventricular systolic function is normal. The calculated ejection fraction is 59% by biplane method and no obvious valvular pathology was seen on this study. There is however, (+) moderate plaque seen in the sino tubular ridge on her recent echo (2) Dysarthria: Code(s): R47.1 - Dysarthria and anarthria Category: Medical Plan: Patient also has had persistent dysarthria/slurring of speech since her hospital admission a couple of months ago She has been referred to Speech and Hearing for further evaluation and management/speech therapy (3) Essential hypertension: Code(s): I10 - Essential (primary) hypertension Category: Medical Plan: Reinforced low sodium diet - goal is systolic BP of at least 130 to 140 mm or less She was previously on Nifedipine ER 60 mg QD but was taken off this completely since her tilt-table test came back positive a couple of months ago (4) Pure hypercholesterolemia: Code(s): E78.00 - Pure hypercholesterolemia, unspecified Category: Medical Plan: Results of her labs done a few days ago reviewed and discussed with patient Reinforced low cholesterol diet Continue Atorvastatin 80 mg QD Will recheck her labs and fasting lipids in 4 months for follow-up (5) Dementia: Code(s): F03.90 - Unspecified dementia, unspecified severity, without behavioral disturbance, psychotic disturbance, mood disturbance, and anxiety Category: Medical Qualifiers: Dementia behavioral or psychological symptom: without behavioral, psychotic, or mood disturbance or anxiety Dementia severity: unspecified severity Dementia type: unspecified type Qualified Code(s): F03.90 - Unspecified dementia, unspecified severity, without behavioral disturbance, psychotic disturbance, mood disturbance, and anxiety Plan: Continue Memantine 5 mg BID Per request, will refer her again to neurology for further evaluation and management (6) Osteoporosis: Code(s): M81.0 - Age-related osteoporosis without current pathological fracture Category: Medical Qualifiers: Osteoporosis type: unspecified Presence of current pathological fracture: without current pathological fracture Qualified Code(s): M81.0 - Age-related osteoporosis without current pathological fracture Plan: Patient reportedly last had a bone density scan done in [place] sometime in the past 1 to 2 years although she does not know how her scan came out She has been on Ibandronate 150 mg once a month supposedly for almost 2 years now but she is not exactly sure as to when she started on this She was therefore sent for a repeat BMD for follow up - BMD done on 10/22/2024 revealed that the bone mineral density of the lumbar spine is 1.186 with a T-score of 0.1, and a Z-score of 1.9 nd the bone mineral density of the distal radius is 0.656 with a T-score of -2.5, and a Z-score of 0.2, consistent with her diagnosis of osteoporosis As we do not have her previous BMD for comparison, we will go ahead and consider this as her index screen to help guide her treatment going forward (7) GERD without esophagitis: Code(s): K21.9 - Gastro-esophageal reflux disease without esophagitis Category: Medical Plan: Dietary restrictions reinforced Continue Pantoprazole 40 mg QD and Famotidine 20 mg BID PRN (8) Allergic rhinitis: Code(s): J30.9 - Allergic rhinitis, unspecified Category: Medical Qualifiers: Allergic rhinitis seasonality: unspecified Allergic rhinitis trigger: unspecified Qualified Code(s): J30.9 - Allergic rhinitis, unspecified Plan: Continue Fluticasone 50 mcg nasal spray QD PRN - Rx refilled (9) Neck pain: Code(s): M54.2 - Cervicalgia Category: Medical Plan: Have advised patient again that her recent right-sided neck pain may be referred pain from her cervical spine Cervical spine x-rays done in August 2024 revealed (+) reversal of the normal cervical lordosis which may be positional or related to muscular spasm. There is (+) chronic grade 1 retrolisthesis of C5 on C6 and multilevel degenerative disc disease and bilateral facet arthropathy, most prominent at C4-C7 Cervical spine CT done in late September 2024 revealed (+) multilevel cervical spondylosis resulting in grade 1 anterolisthesis at C3-4 without gross acute fracture, and a questionable small 5 mm diverticulum at the 7 o'clock position at the upper trachea (10) Low back pain: Code(s): M54.50 - Low back pain, unspecified Category: Medical Qualifiers: Back pain laterality: midline Chronicity: unspecified Sciatica presence: without sciatica Qualified Code(s): M54.50 - Low back pain, unspecified Plan: Reinforced activity and weight-lifting restrictions Lumbar spine x-rays done in August 2024 revealed no new compression fractures but there is a slight to mild eccentric wedge deformity at L4 not appearing significantly changed. There are also (+) multilevel degenerative changes and retrolisthesis at L1-L2 She was on Gabapentin 300 mg TID for her low back pain previously but this was discontinued a couple of months ago when there were concerns that her neurologic symptoms then could have been side effects from her Gabapentin Continue Cyclobenzaprine 10 mg Q HS PRN (11) Bilateral primary osteoarthritis of hip: Code(s): M16.0 - Bilateral primary osteoarthritis of hip Category: Medical Plan: She reports experiencing increasing pain in both hips lately, with pain slightly worse in the left hip Patient states that she's had total arthroplasty of both hips done in [place] a few years ago with her left hip surgery done more recently in 2022 and she is concerned that her recent hip pain may be related to her arthroplasty She was sent for bilateral hip x-rays (done in August 2024) which revealed (+) moderate bilateral hip OA. There are changes of left femoral ORIF without evidence of hardware complication and healed left intertrochanteric fracture with prominent new bone/callus formation. There are partially visualized right femoral orthopedic screws without evidence of hardware complication She was referred to and seen by Orthopedics last month receive some cortisone injections into her hips, which she states helped somewhat She was advised that she is not a candidate for surgical intervention Follow-up with orthopedics as scheduled or as needed (12) Left knee pain: Code(s): M25.562 - Pain in left knee Category: Medical Qualifiers: Chronicity: unspecified Qualified Code(s): M25.562 - Pain in left knee Plan: Patient also reports that she's had total arthroplasty of both knees done in [place] a few years ago and she is concerned about her recent knee pain Left knee x-rays done in August 2024 revealed (+) findings of total left knee arthroplasty without evidence of complication, with (+) trace joint effusion (13) Anxiety: Code(s): F41.9 - Anxiety disorder, unspecified Category: Medical Plan: Continue Doxepin 10 mg Q HS, Buspirone 20 mg BID and Bupropion XL 150 mg Q AM (14) Bipolar 1 disorder: Code(s): F31.9 - Bipolar disorder, unspecified Category: Medical Plan: Continue Vanlafaxine ER 225 mg Q AM, Lamotrigine 250 mg (200 mg + 25 mg x 2) QD, Vraylar 3 mg QD and Bupropion XL 150 mg Q AM Follow up with psychiatry as scheduled (15) Overweight (BMI 25.0-29.9): Code(s): E66.3 - Overweight Category: Medical Plan: Per patient, she's had a Mabel-en-Y gastric bypass surgery years ago and has lost about 120 pounds or more since her surgery Continue Pantoprazole 40 mg QD and she is reminded to completely avoid taking any NSAIDs to prevent the development of ulcers, especially marginal ulcers Plan Follow up in 4 months Orders: Orders TSH reflex Free T4 4 Months E78.00 - Pure hypercholesterolemia, unspecified UA CC w/rflx Micro + Cult 4 Months R30.0 - Dysuria Vitamin B12 and Folate 4 Months E53.8 - Deficiency of other specified B group vitamins Complete Blood Count Auto Diff 4 Months D64.9 - Anemia, unspecified Comprehensive [place]. Panel Fast 4 Months E78.00 - Pure hypercholesterolemia, unspecified Referrals Neurology Referral R41.3 - Other amnesia, R25.1 - Tremor, unspecified Medications: Refilled memantine 20 mg (2 x 10 mg) PO DAILY 90 tabs 0RF cyclobenzaprine 10 mg PO BEDTIME 90 tabs 0RF muscle spasm 90 days
--- OUTSIDE RECORDS SUMMARY | 2025-08-10 11:11 | XMS_ITS | Encounter Summary ---
Author Organization [facility] Address [address] [place] [address] Encounters * CPT with Ranjit Lindquist at [employer] on 2025-03-12 { reasonForRequest : Pt's son [...] son, who is her primary caregiver, meets [facility] at the [facility] truck and walks w/ [facility] to the home where he lives and cares for his mom, the pt. 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 She was heard fallingby family [...] . Pt came to visit son from [place] in June 2024 and had six glf's in that time,so he made her stay and not return to [place]. He has been her caregiver since. Pt has had MRIs andEKGs w/ no significant findings, has stage II kidney disease, and just had a tilt test last week. He describes her mental state at this time as like a zombie right now . Normally he describes her as happy and conversive and it is hard to tell she has dementia. [facility] makes pt contact. She is seated in a chair in her room awaiting [facility] arrival. She makes eye contact and [...] remember its name. Shemaintains eye contact w/ [facility] throughout. When asked what happened today, she says The same thing that happened in [place]. I just fell. I feel like my [...] where she has s/s of rheumatoid arthritis. [facility] obtains vital signs and pt is [...] artifact and widening QRS in all leads. [facility] contacts [facility] and discusses the above. [facility] speaks w/son and [facility] is not present for the conversation. [facility] tells [facility] he spoke w/ son about getting a CT scan for the pt and he agreed to transport her POV to [facility]. Son thanks [facility] and begins to get pt ready to go to the ED for further workup. [facility] is clear. Report completed by JORDYN Landry [id number]. IV_(FLUIDS_AND/OR_MEDICATION), MEDICATION_IM, EKG, GLUCOSE, ORTHOSTATIC_VITAL_SIGNS Written by Ranjit Lindquist on 2025-03-12
--- OUTSIDE RECORDS SUMMARY | 2025-08-10 11:11 | XMS_ITS | Data Portability ---
Author Organization [facility] Address [address] [place] [id number] Care Team Providers Care Material Scheduler Name Role Phone HIM SAWYER OTHER Assessment Encounter Date Assessment Date Assessment LastModified by Organization Details LastModified Time 03/12/2025 03/12/2025 As noted, we were called to see this patient regarding concerns of Fall. Evaluation in the field was performed by my back up machine operator colleague, as noted above, I provided real-time direction and supervision for this visit. Patient has a history of dementia. Her son states that he heard her fall in the other room a few hours ago. Patient states that she hit the back of her head. Medic states that she does have tenderness on the occiput. She has no other signs of injury as per medic. Patient is not on any blood thinners. Patient son states that she just finished a course of ciprofloxacin for UTI. I have discussed the risks and benefits of going to get a CT scan with the patient's son, Tez. He states that he would prefer to take her to [place] emergency department. I have called in an expect to their ED. Impression: Fall, head injury Plan: ED Disposition: We discussed the situation and I recommended referral to the emergency department. This was based on Fall with head injury. [email or web address] Not available 03/12/2025 17:34:36 Plan of Treatment Reminders Order Date Submit Date Provider Last Modified By Organization Details Last Modified Time Details Appointments None recorded. Lab None recorded. Referral None recorded. Procedures None recorded. Surgeries None recorded. Imaging electrocard iogram 2024 025 [facility] [address] [place] [address], [phone] 16:13:55 Medication Orders None recorded. Patient TargetsNo targets recorded. Patient InstructionsNo instructions recorded. Reason for Referral None Reported. Results Created Date Observation Date Name Description Value Unit Range Abnormal Flag Note LastModifiedBy Organization Detail LastModifiedTime 03/12/20 25 03/12/2025 mercedez lucas diogr am No observ ation record ed. [facility] [address], [phone] 03/12/2025 21:08:24 Result Notes None recorded. Medical Equipment None Reported. Allergies Allergen ID Allergen Name Allergen Category Reaction Reaction Severity Criticality Documentation Date Start Date Code Code System Note Provider Name and Address Organization Details Recorded Time 61347 gabapenti n medicatio n Not available Not available Not available 03/12/2025 76067 RxNorm Not Available [facility] - production 15:19:57 Medications Name Sig Start Date Stop Date Status Note LastModified by Organization Details LastModified Time cyclobenzapr ine 10 mg tablet TAKE 1 TABLET BY MOUTH AT BEDTIME active Not Available Not Available No t Available atorvastatin 80 mg tablet TAKE 1 TABLET BY MOUTH DAILY active Not Available Not Available Not Available venlafaxine ER 75 mg capsule,exte nded release 24 hr TAKE 1 CAPSULE BY MOUTH ONCE DAILY WITH 150MG CAPSULE FOR A TOTAL DOSE OF 225MG active Not Available Not Available No t Available lamotrigine 200 mg tablet TAKE 1 TABLET BY MOUTH DAILY active Not Available Not Available Not Available doxepin 10 mg capsule TAKE 1 CAPSULE BY MOUTH EVERY NIGHT AT BEDTIME FOR SLEEP active Not Available Not Available No t Available lamotrigine 25 mg tablet TAKE 2 TABLETS BY MOUTH DAILY WITH LAMOTRIGINE 200MG FOR A TOTAL OF 250MG DAILY active Not Available Not Available Not Available meclizine 25 mg tablet TAKE 1 TABLET BY MOUTH AT BEDTIME NEEDED FOR VERTIGO active Not Available Not Available No t Available nitrofuranto in macrocrystal 100 mg capsule TAKE 1 CAPSULE BY MOUTH TWICE DAILY FOR 5 DAYS active Not Available Not Available No t Available gabapentin 300 mg capsule TAKE 1 CAPSULE BY MOUTH THREE TIMES DAILY active Not Available Not Available Not Available aspirin 81 mg chewable tablet CHEW AND SWALLOW 1 TABLET BY MOUTH DAILY active Not Available Not Available Not Available nifedipine ER 60 mg tablet,exten ded release TAKE 1 TABLET BY MOUTH DAILY active Not Available Not Available Not Available ondansetron 4 mg disintegrati ng tablet DISSOLVE 1 TABLET ON THE TONGUE FOUR TIMES DAILY FOR 7 DAYS NEEDED FOR NAUSEA active Not Available Not Available No t Available bupropion HCl XL 150 mg 24 hr tablet, extended release TAKE 1 TABLET BY MOUTH DAILY active Not Available Not Available Not Available memantine 10 mg tablet TAKE 1 TABLET BY MOUTH TWICE DAILY active Not Available Not Available No t Available nitrofuranto in monohydrate/ macrocrystal s 100 mg capsule TAKE 1 CAPSULE BY MOUTH TWICE DAILY FOR 5 DAYS active Not Available Not Available No t Available Vraylar 3 mg capsule TAKE 1 CAPSULE BY MOUTH DAILY FOR BIPOLAR DEPRESSION active Not Available Not Available N ot Available Vitals Date Recorded Oxygen saturation Oxygen saturation in Arterial blood by Pulse oximetry Body weight Respiratory rate Body height Body temperature Heart rate Systolic And Diastolic Provider Name and Address Organization Details Last Updated DateTime 5 94 % 94 % 62522.1 2 g 16 /min 154.94 cm 97.4 [degF] 77 /min 126/69 mm[Hg] Not Available [facility] production 5 17:02:55 Social History None recorded. Functional Status None recorded. Mental Status None recorded. Family History Nothing Reported. Medical History No medical history recorded. Gynecological HistoryNo gynecological history recorded. Obstetrics History GPAL:G 0 P 0 0 0 0 Past Encounters Encounter ID Performer Location Encounter Start Date Encounter Closed Date Diagnosis/Indication Diagnosis SNOMED-CT Code Diagnosis ICD10 Code Diagnosis IMO Codes Diagnosis Note [id number] Grey Rodriguez MD [facility] [address] [address] 03/12/2025 17:02:54 03/14/2025 15:01:30 Fall W19.XXXA 0461985 Injury of head 17711154 S09.90XA [id number] Health Concerns Section Related Observation LastModified by Organization Detai ls LastModified Time None Recorded Concern Status LastModified by Organization Details LastModified Time None Recorded Advance Directives Directive None Recorded Payers Insurance Date Sequence Insurance Name Policy Number Policy Thorne Covered Member ID Thorne Member ID Guarantor Name 03/12/2025 1 [facility] - DOS ON OR AFTER 2022 - DUAL ELIGIBLE - HALFWAY OPTIONS AND ONE CARE (MEDICARE REPLACEMENT/ADV ANTAGE - HMO) Brittany Martinez [id number] Brittany Martinez Notes Date Note Type Note Provider Name and Address Organization Details Recorded Time 03/12/2025 text/html ROS as noted in the HPI [facility] Nurse Triage Notes ([place]pe, Katie - RN): Reason For Request: Pt's son reporting a fall, with associated pain> Denies: Falls with head strike and LOC Falls from a standing position, no LOC, patient is amnestic to the event Falls with isolated injury and deformity noted to limb Falls with inability to move post fall Cool extremities after fall or injury Chief Complaints: Falls PMH: Dementia (e.g., Alzheimer's Disease), Hypertension PMH Reviewed at 03/12/2025 Allergies Reviewed at 03/12/2025:19 Comments: 80 y.o female complains of Falls Patients son calling in to place a referral. Per son, his called him, stating his mom had a fall in the next room over about 30 min ago. Patient has dementia, and is not always truthful about symptoms. They are unsure of head strike, don't believe she had LOC as they went right in her room when they heard the fall, she does not take any blood thinners. Patient does complain that some of her meds make her dizzy and loopy . Per son she is prone to falls, and they believe she has orthostasis. Per his patient is awake, alert, talking and walking. They would like her evaluated. Patient has more allergies and PMH, however, he is driving home now and will have her paperwork present for review. I provided information on the mobile health provider response time and advised the patient and/or caregiver to monitor reported signs and symptoms. I discussed the warning signs of when to seek emergency care. Awning Finisher Organization Information for Camille Landry Business Legal Name: [employer]. Address: [address] [place] [id number], Medical Customer Service Representative: Terrell Dixon MD CLIA No.: [id number] Awning Finisher POC Test Results from Camille Landry EKG (17:04:47) EKG test performed. Attachments uploaded as part of this test result can be found under Documents section. .................. .................. .................. .................. .................. .................. .................. ............... Awning Finisher Note From Camille Landry: [facility] is dispatched to an 80 yof w/ c/c of ground level fall. Upon arrival, pt's son, who is her primary caregiver, meets [facility] at the [facility] truck and walks w/ [facility] to the home where he lives and cares for his mom, the pt. 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 She was heard falling by family who immediately ran into the room [...] 2024 and had six glf's in that time, so he made her stay and not return to [place]. He has been her caregiver since. Pt has had MRIs and EKGs w/ no significant findings, has stage II kidney disease, and just had a tilt test last week. He describes her mental state at this time as like a zombie right now . Normally he describes her as happy and conversive and it is hard to tell she has dementia. [facility] makes pt contact. She is seated in a chair in her room awaiting [facility] arrival. She makes eye contact and says hello. She is generally well appearing. No ashen or staton color are noted; no stridor or sonorous respirations are present. No facial droop or one-sided weakness are observed. She is able to answer questions regarding person, place, and time, but she does not remember falling today. She demonstrates the ability to think lucina and retrograde by naming tomorrow and yesterday, but she is unable to remember the name of the month. She knows it is month 6 but cannot remember its name. She maintains eye contact w/ [facility] throughout. When asked what happened today, she says The same thing that happened in [place]. I just fell. I feel like my body just isn't there anymore and I fall. She is also c/o dizziness as she is sitting and says it is her medication and points at the two venlafaxine pills in her pillow packs. Pt is denying visual disturbances and tinnitus. She also denies cp, sob, n/v/d, abd pain, fever and chills. No heart palpitations are reported. She is denying GZUMÁN, but the back of her head is sore she says because she fell backwards when she fell earlier. She can only remember being helped off the floor. She is not anticoagulated. She is denying any new pain in her hips, shoulders, and back where she has s/s of rheumatoid arthritis. [facility] obtains vital signs and pt is assessed. Head is atraumatic and normocephalic. Occiput is tender to palpation, but no swelling or bruising are [...] artifact and widening QRS in all leads. [facility] contacts [facility] and discusses the above. [facility] speaks w/ son and [facility] is not present for the conversation. [facility] tells [facility] he spoke w/ son about getting a CT scan for the pt and he agreed to transport her POV to [facility]. Son thanks [facility] and begins to get pt ready to go to the ED for further workup. [facility] is clear. Report completed by JORDYN Landry [id number]. .................. .................. .................. .................. .................. .................. .................. ............... [facility] Consulted: Grey Rodriguez .................. .................. .................. .................. .................. .................. .................. ............... Disposition: Fulfilled Grey Rodriguez MD [address] [place] [address],[address] [facility], [place], [address], [employer] 03/12/2025 21:21:48 OBGyn Episode No OBEpisode recorded.
--- OUTSIDE RECORDS SUMMARY | 2025-08-10 11:11 | XMS_ITS | Clinical Summary ---
Author Organization [facility] Address [address] [place] [address] Phone Care Team Providers Care Repeat Chief Name Role Phone Jacob Vale MD Primary Care Provider [phone] Social History Tobacco Use Types Packs/Day Years [...] patient's age to complete this topic Insurance [facility] MEDICARE Member Subscriber Plan / Payer (Ef fective 2025-Present) Name:Brittany Lundberg Relation to Subscriber:Self Name:Brittany Lundberg Payer ID:[id number] Group ID:[id number] Type:Not on file Address: [place] [address] [address] [id number] Care Teams Repeat Chief Relationship Specialty Start Date End Date Jacob Vale MD [address] [place] [address] [place] PCP - General Internal Medicine 03/08/25
--- OUTSIDE RECORDS SUMMARY | 2025-08-10 11:13 | XMS_ITS | Continuity of Care Document ---
Author Name Ranjit Lindquist Address [address] [place] [id number] Organization Unknown Address [address] [place] [address] Medications No known medications Problems No known problems
== END 2025-08-09 15:28 | disposition home or self-care (01) ==
LOC: HO.HMCH 14:22
PROVIDERS: PCP Internal Medicine; Visit Provider Internal Medicine
DX: R53.1 Weakness (principal); R47.1 Dysarthria and anarthria; I10 Essential (primary) hypertension; E78.00 Pure hypercholesterolemia, unspecified; F03.90 Unspecified dementia, unspecified severity, without behavioral disturbance, psychotic disturbance, mood disturbance, and anxiety; M81.0 Age-related osteoporosis without current pathological fracture; K21.9 Gastro-esophageal reflux disease without esophagitis; J30.9 Allergic rhinitis, unspecified; M54.2 Cervicalgia; F41.9 Anxiety disorder, unspecified; F31.9 Bipolar disorder, unspecified; E66.3 Overweight; M54.50 Low back pain, unspecified; M16.0 Bilateral primary osteoarthritis of hip; M25.562 Pain in left knee

== ENCOUNTER → 2025-08-09 14:22 | Outpatient (BNVA) | payer OTHER, SELFPAY | PROVIDERS: PCP Internal Medicine; Visit Provider Internal Medicine | DX: I10 Essential (primary) hypertension (principal); R25.1 Tremor, unspecified; R53.1 Weakness; R47.1 Dysarthria and anarthria; E78.00 Pure hypercholesterolemia, unspecified; F03.90 Unspecified dementia, unspecified severity, without behavioral disturbance, psychotic disturbance, mood disturbance, and anxiety; M81.0 Age-related osteoporosis without current pathological fracture; K21.9 Gastro-esophageal reflux disease without esophagitis; J30.9 Allergic rhinitis, unspecified; M54.2 Cervicalgia; M54.50 Low back pain, unspecified; M16.0 Bilateral primary osteoarthritis of hip; M25.562 Pain in left knee; F41.9 Anxiety disorder, unspecified; F31.9 Bipolar disorder, unspecified; R41.3 Other amnesia; E66.3 Overweight; Z68.27 Body mass index [BMI] 27.0-27.9, adult | CPT/HCPCS: 96127; 99212 ==

== ENCOUNTER 2025-09-20 13:37 | Outpatient (AMB) | payer OTHER, SELFPAY ==
[2025-09-20 13:39] VITALS: BP 160/80; PULSE 86; BMI 28.9
--- NOTE | 2025-09-20 13:39 | MHC.OFFVIS ---
Vital Signs 09/20/25 13:39 Height 4 ft 11 in Weight 143 lb 4.807 oz BMI 28.9 BP 160/80 H Blood Pressure Location Lt brachial Position Sitting Pulse 86 Pulse Source Monitor Intake Visit Reasons: 6m follow up Allergies No Known Allergies Allergy (Verified 08/09/25 15:12) Medication List - Last Reconciled 09/20/25 by Harris Bennett MD albuterol sulfate 90 mcg/actuation 2 puffs inhalation Q4-6H PRN atorvastatin 80 mg PO DAILY benzonatate 200 mg PO BID-TID PRN bupropion HCl XL 150 mg PO DAILY 90 days buspirone 20 mg PO BID cariprazine (Vraylar) 3 mg PO DAILY 30 days cyclobenzaprine 10 mg PO BEDTIME 90 days ibandronate 150 mg PO Q28D 3 months meclizine 25 mg PO BEDTIME PRN memantine 20 mg (2 x 10 mg) PO DAILY HPI Comments Details: Brittany returns for follow-up. Originally seen in consultation regarding question of vertigo/dizziness. Dizziness when she is getting up from bed or seated position. That is associated with a sensation of room spinning with in her head. She has had falls in the past. A neurologist at previously thought it could be vertigo. She has been on nifedipine for blood pressure. We rather thought it was orthostatic hypotension and we cut back on the nifedipine from 60 mg to 30 mg, then stopped completely. She also went for a tilt-table test and that was indeed positive orthostatic hypotension. Otherwise, she does not have any overt symptoms like angina or in fact anything else of cardiac nature. Previously, she has seen a marine reporter in [place] and has undergone some testing. Son comes with her for the appointment. Recently, it seems that blood pressure is rather on the higher side. Today's blood pressure is also high. She still has some occasional dizziness but no syncopal episodes or falls. [facility] Medical History (Updated 09/20/25 @ 15:43 by Harris Bennett MD) Essential hypertension Dysarthria Ataxia Overweight (BMI 25.0-29.9) Bipolar 1 disorder GERD without esophagitis Allergic rhinitis Dementia Anxiety Osteoporosis Pure hypercholesterolemia Depression Arthritis Surgical History History of cataract extraction History of Mabel-en-Y gastric bypass History of arthroplasty of right shoulder History of total hip arthroplasty History of total knee arthroplasty Hx of arthroscopic knee surgery Family History Other FH: mental illness Substance abuse Social History Household Members: Family Housing: House Do you presently have visiting nurse or other home services: No Alcohol intake: never Patient Tobacco Use Status: Former Tobacco user e-Cigarette/Vaping Use: Never Used Second Hand Smoke Exposure: Yes Advance Directives Date on File: 10/19/24 service: No Current occupational status: unemployed Current occupational exposures/hazards: No Cognitive needs: Yes (walker, cane) Hearing needs: No Vision needs: Yes (glasses) Female Reproductive History Menstrual Age of Menarche: 9 Review of Systems Const Denies weakness ENT Denies dizziness Card Denies chest pain, Denies chest pain with activity, Denies syncope, Denies rapid heart rate, Denies pedal edema, Denies edema, Denies leg edema, Denies lightheadedness, Denies palpitations, Reports dyspnea, Reports dyspnea on exertion and Denies orthopnea Resp Denies cough, Reports dyspnea and Reports dyspnea on exertion GI Denies hematochezia and Denies change in stool character Musc Denies abnormal gait, Reports myalgias, Denies muscle cramps, Denies muscle weakness, Denies numbness, Denies radiating pain into limb and Denies tingling Neuro Denies abnormal gait, Denies dizziness, Denies syncope, Denies numbness, Denies tingling and Denies weakness Endo Denies palpitations Physical Exam Vital Signs: Last Vital Signs Pulse 86 09/20/25 13:39 BP 160/80 H 09/20/25 13:39 BMI result Body Mass Index 28.9 Const General: comfortable and no acute distress Orientation/consciousness: patient oriented x3 HEENT Other: Unremarkable Head: Yes normal to inspection Neck Neck: Yes normal visual inspection Chest Chest palpation & inspection: normal inspection of the chest Resp Auscultation: clear to auscultation bilaterally Cardio Palpation: normal PMI Heart sounds: S1 normal heart sound present, S2 normal heart sound present, no gallops, no murmurs and no rubs GI Palpation (GI): Soft to palpation Back/Spine/Pelvis Other: unremarkable Skin General skin exam: no rashes or lesions noted Neuro General: patient oriented x3 Extrem General: Yes normal to inspection Psych Mental Status: mental status grossly normal Office Procedures EKG Details: EKG with sinus rhythm at 86/Min; cannot exclude old septal infarct but could be from body habitus; nonspecific ST-[place] changes; [place] [id number]-Uampmzidyimyugyig, Complete Assessment & Plan Assessment & Plan (1) Dizziness: Code(s): R42 - Dizziness and giddiness Category: Medical (2) Recurrent syncope: Code(s): R55 - Syncope and collapse Category: Medical (3) Unsteady gait: Code(s): R26.81 - Unsteadiness on feet Category: Medical (4) Orthostatic hypotension: Code(s): I95.1 - Orthostatic hypotension Category: Medical (5) Essential hypertension: Code(s): I10 - Essential (primary) hypertension Category: Medical Plan Cardiac studies reviewed. EKG with underlying sinus rhythm at 86/Min; NY prolongation to 216 milliseconds; LVH with repolarization changes; normal [place] and corrected QT. Echocardiogram with LVEF of 59%. No significant valvular findings. Stress test from [place] 2023-normal perfusion at stress and rest. In the tilt-table test, she went as low as 71/56 mm Hg during 70 degree tilt. There was physiological heart rate response with dizziness. No syncope. Overall, suspected orthostatic hypotension causing her falls. However, per neurology there was also concern for central versus vestibular system abnormality causing vertigo but not clear if she actually has 2 reasons for falling. Previously on nifedipine but stopped because of orthostatic hypotension. His blood pressure is remaining, we can try a different agent like losartan. Other option would be to accept some degree of hypertension. We discussed about this in detail today. We will check some labs after starting losartan. Follow up in 2-3 months to reassess the blood pressure. Discussed with son. Discussion Notes: I discussed with the patient and her son the difficulty in managing her blood pressure. I explained that while stopping her previous medication resolved her falls, her current high blood pressure of 160-170 mmHg poses a risk for events like a heart attack. I outlined the plan to cautiously start a new, different blood pressure medication at a low dose. We discussed the risk that this may also lower her pressure too much and that we will start with a 30-day trial supply. I informed them about the need for blood work one to two weeks after starting the pill to monitor her kidneys and potassium. I requested she follow up in three months and bring her home blood pressure readings. Patient was informed and verbally consented to the use of an ambient scribe for clinic note documentation during this visit. Orders: Orders Basic Metabolic Panel 1 Week I95.1 - Orthostatic hypotension Medications: New losartan 25 mg PO DAILY 30 tabs 5RF Patient Instructions: - You will be started on a new blood pressure medicine at a low dose. - A 30-day prescription will be sent to [facility]. - Please get blood work done one to two weeks after you start taking the new medication to check your kidney function and potassium levels. - Continue to check your blood pressure every day. - Please schedule a follow-up appointment in three months and bring your blood pressure log with you. - Be careful, as the new medication could make you feel lightheaded. If you start falling again, please let us know. Coding Level of Care Code Est Pt Level 4 (05293) Add On Problem Visit Only Diagnoses Dizziness R42 Recurrent syncope R55 Unsteady gait R26.81 Orthostatic hypotension I95.1 Essential hypertension I10 CPT Codes EKG - CPT: 35836-Brmtzhusgovgcewtx, Complete ([id number])
--- OUTSIDE RECORDS SUMMARY | 2025-09-20 17:30 | XMS_ITS | Data Portability ---
Author Organization [facility] Address [address] [place] [id number] Care Team Providers Care Fire Alarm Technician Name Role Phone HIM SAWYER OTHER Assessment Encounter Date Assessment Date Assessment LastModified by Organization Details LastModified Time 03/12/2025 03/12/2025 As noted, we were called to see this patient regarding concerns of Fall. Evaluation in the field was performed by my sketch maker colleague, as noted above, I provided real-time [...] he would prefer to take her to [employer] [facility] [employer] emergency department. I have called in an [...] None recorded. [facility] [address] [place] [address], [phone] 16:13:55 Medication Orders None recorded. Patient TargetsNo targets recorded. Patient InstructionsNo instructions recorded. Reason for Referral None Reported. Results Created Date Observation Date Name Description Value Unit Range Abnormal Flag Note LastModifiedBy Organization Detail LastModifiedTime 03/12/20 25 03/12/2025 mercedez lucas diogr am No observ ation record ed. [facility] [address], [phone] 03/12/2025 21:08:24 Result Notes None recorded. Medical Equipment None Reported. Allergies Allergen ID Allergen Name Allergen Category Reaction Reaction Severity Criticality Documentation Date Start Date Code Code System Note Provider Name and Address Organization Details Recorded Time 05171 gabapenti n medicatio n Not available Not available Not available 03/12/2025 72240 RxNorm Not Available [facility] - production 15:19:57 [...] ot Available Vitals Date Recorded Oxygen saturation Body weight Respiratory rate Body height Body temperature Heart rate Systolic And Diastolic Provider Name and Address Organization Details Last Updated DateTime 5 94 % 07588.1 2 g 16 /min 154.94 cm 97.4 [...] ICD10 Code Diagnosis IMO Codes Diagnosis Note [id number] Grey Rodriguez MD [facility] [address] [phone] 03/12/2025 17:02:54 03/14/2025 15:01:30 Fall W19.XXXA [id number] Injury of head 05127760 S09.90XA [id number] Health Concerns Section Related Observation LastModified by Organization Detai ls LastModified Time None Recorded Concern Status LastModified by Organization Details LastModified Time None Recorded Advance Directives Directive None Recorded Payers Insurance Date Sequence Insurance Name Policy Number Policy Thorne Covered Member ID Thorne Member ID Guarantor Name 03/12/2025 1 [facility] [employer] - DOS ON OR AFTER 2022 - DUAL ELIGIBLE - NURSING HOME OPTIONS AND ONE CARE (MEDICARE REPLACEMENT/ADV ANTAGE - HMO) Brittany Martinez [id number] Brittany Martinez Notes Date Note Type Note Provider Name and Address Organization Details Recorded Time 03/12/2025 text/html ROS as noted in the HPI CRC Nurse Triage Notes (Katie Blood - RN): Reason For Request: Pt's son [...] signs of when to seek emergency care. [facility] Organization Information for Camille Landry Business Legal Name: [employer]. Address: [address] [place] [address], Zanjero: Terrell GIBBS No.: [id number] [employer] POC Test Results from Camille Landry EKG (17:04:47) EKG test performed. Attachments uploaded as part of this test result can be found under Documents section. .................. .................. .................. .................. .................. .................. .................. ............... [facility] Note From Camille Landry: [facility] is dispatched to an 80 yof w/ c/c of ground level fall. Upon arrival, pt's son, who is her primary caregiver, meets [facility] at the [facility] truck and walks w/ [facility] to the home where he lives and cares for his mom, the pt. He tells 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 She was heard falling by family who [...] . Pt came to visit son from [place] in June 2024 and had six glf's in that time, so he made her stay and not return to [place]. He has been her caregiver since. Pt has had MRIs and EKGs w/ no significant findings, has stage II kidney disease, and just had a tilt test last week. He describes her mental state at this time as like a zombie right now . Normally he describes her as happy and conversive and it is hard to tell she has dementia. [facility] makes pt contact. She is seated in a chair in her room awaiting [facility] arrival. She makes eye contact and says [...] its name. She maintains eye contact w/ [facility] throughout. When asked what happened today, she says The same thing that happened in [place]. I just fell. I feel like my [...] where she has s/s of rheumatoid arthritis. [facility] obtains vital signs and pt is assessed. [...] artifact and widening QRS in all leads. [facility] contacts [facility] and discusses the above. [facility] speaks w/ son and [facility] is not present for the conversation. [facility] tells [facility] he spoke w/ son about getting a CT scan for the pt and he agreed to transport her POV to [facility]. Son thanks [facility] and begins to get pt ready to go to the ED for further workup. [facility] is clear. Report completed by JORDYN Landry [id number]. .................. .................. .................. .................. .................. .................. .................. ............... [facility] Consulted: Grey Rodriguez .................. .................. .................. .................. .................. .................. .................. ............... Disposition: Fulfilled Grey Rodriguez MD [address] [facility] [facility], [place], [phone], [facility] 03/12/2025 21:21:48 OBGyn Episode No OBEpisode recorded.
--- OUTSIDE RECORDS SUMMARY | 2025-09-20 17:30 | XMS_ITS | Clinical Summary ---
Author Organization [facility] Address [address] [place] [address] Phone Care Team Providers Care Investment Accountant Name Role Phone Jacob Vale MD Primary Care Provider [phone] Social History Tobacco Use Types Packs/Day Years [...] patient's age to complete this topic Insurance [facility] MEDICARE Member Subscriber Plan / Payer (Ef fective 2025-Present) Name:Brittany Lundberg Relation to Subscriber:Self Name:Brittany Lundberg Payer ID:[id number] Group ID:[id number] Type:Not on file Address: [place] [address] [address] [phone] Care Teams Investment Accountant Relationship Specialty Start Date End Date Jacob Vale MD [address] [place] [address] [place] PCP - General Internal Medicine 03/08/25
--- OUTSIDE RECORDS SUMMARY | 2025-09-20 17:30 | XMS_ITS | Clinical Summary ---
Author Organization [employer] Address [address] [place] [address] Care Team Providers Care Advertising Writer Name Role Phone Unavailable Primary Care Provider [...] to complete this topic Insurance [facility] - [facility]
== END 2025-09-20 14:06 | disposition home or self-care (01) ==
LOC: HO.HCS 13:38
PROVIDERS: PCP Internal Medicine; Visit Provider Internal Medicine
DX: R42 Dizziness and giddiness (principal); R55 Syncope and collapse; R26.81 Unsteadiness on feet; I95.1 Orthostatic hypotension; I10 Essential (primary) hypertension
CPT/HCPCS: 93010; 99214; G2211

== ENCOUNTER → 2025-09-20 13:37 | Outpatient (BNVA) | payer OTHER, SELFPAY | PROVIDERS: PCP Internal Medicine; Visit Provider Internal Medicine | DX: R42 Dizziness and giddiness (principal); R26.81 Unsteadiness on feet; I95.1 Orthostatic hypotension; I10 Essential (primary) hypertension; Z79.899 Other long term (current) drug therapy; Z87.891 Personal history of nicotine dependence | CPT/HCPCS: 93005; 99212 ==